=== PATIENT | female | born 1935 | race Caucasian/White ===

== ENCOUNTER 2018-02-11 13:13 | Emergency (ER) | payer MEDICARE, OTHER ==
[~2018-02-11] VITALS: Ht 152.4 cm; Wt 60.8 kg
[~2018-02-11 13:13] MED LIST: ACETAMINOPHEN325 M1 PO; ADULT LOW DOSE81 MG PO; ALDACTONE25 MG PO; ALLOPURINOL 30300 M2 PO; AMBEREN PO; ASPIRIN81 M2 PO; ATROVENT15 ML NS; BENICAR20 MG PO; BENICAR40 MG PO; CALCIUM; CARVEDILOL25 MG PO; COMBIVENT IN; COREG; COREG PO; COUMADIN 1MG TAB1 M1 PO; COUMADIN 2 MG TA2 M1 PO; COUMADIN 2.5MG2.5 M1 PO; COUMADIN 4 MG TA4 M1 PO; CYMBALTA30 MG PO; CYMBALTA60 MG; CYMBALTA60 MG PO; DARVOCET-N 1001 EACH PO; FERROUS GLUCON324 M1 PO; FOLIC ACID1 MG PO; IMDUR 60 MG TAB60 M1 PO; KEFLEX500 MG PO; LASIX 20 MG TAB20 MG PO; LEVAQUIN 500 M500 M2 PO; LIDODERM TD; METHOTREXATE 22.5 M1 PO; METHOTREXATE 22.5 MG PO; METHOTREXATE PO; MUCINEX600 MG PO; NAPROSYN375 MG PO; NASONEX17 GM NASAL; NEXIUM40 MG PO; NIACOR500 MG PO; NITROGLYCERIN0.4 MG SL; NITROGLYCERIN0.4 MG SUBLING; NITROSTAT0.4 MG SL; NORVASC 5 MG TAB5 MG; NORVASC 5 MG TAB5 MG PO; PREDNISONE 10 M10 MG PO; PREVACID 30MG C30 M1 PO; PRISTIQ50 MG PO; PROVENTIL HFA6.7 G1 INH; RECLAST 55 MG/100 M IV; REMICADE 1100 MG/VIA IV; RESTORIL15 MG PO; SIMVASTATIN80 MG PO; SYMBICORT160 MCG/4. INH; TEMAZEPAM PO; TREXALL15 MG PO; ULTRAM 50MG TAB50 MG PO; ZOCOR80 MG PO
[2018-02-11] MEDS ORDERED: ALLOPURINOL 10100 M1 PO (13:26)
[2018-02-11 14:02] LABS: ABSOLUTE EOSINOPHILS 0.4 thou/uL (0.0-0.7); ABSOLUTE LYMPHOCYTES 1.1 thou/uL (0.8-5.3); ABSOLUTE MONOCYTES 0.7 thou/uL (0.0-1.2); ABSOLUTE NEUTROPHILS 3.3 thou/uL (1.6-8.1); BASOPHILS 0.6 %; EOSINOPHILS 7.2 %; HEMATOCRIT 28.8 % (37.0-47.0); HEMOGLOBIN 9.2 gm/dL (12.0-15.0); LYMPHOCYTES 19.7 %; MCH 25.1 pg (26.0-34.0); MCV 78.4 fL (80.0-100.0); MONOCYTES 12.2 %; MPV 8.8 fl. (7.2-11.1); NUCLEATED RBCS 0 /100WBC; PLATELET COUNT* 255 thou/uL (150-400); POLYS 60.3 %; RBC 3.67 mil/uL (4.20-5.00); RDW-CV 19.1 % (10.5-14.5); WBC 5.5 thou/uL (4.0-11.0)
[2018-02-11 14:06] LABS: ANION GAP 7 mmol/L (7-16); BUN 24 mg/dL (7-18); CALCIUM 8.2 mg/dL (8.5-10.1); CHLORIDE 100 mmol/L (98-107); CO2 28 mmol/L (21-32); CREATININE 1.3 mg/dL (0.6-1.3); GLUCOSE 111 mg/dL (70-99); POTASSIUM 4.6 mmol/L (3.5-5.1); SODIUM 135 mmol/L (136-145)
[2018-02-11 14:13] LABS: ALBUMIN 2.6 g/dL (3.4-5.0); ALKALINE PHOSPHATASE 61 U/L (46-116); SGOT 26 U/L (15-37); SGPT 24 U/L (30-65); TOTAL BILIRUBIN 0.4 mg/dL (<0.1-1.0); TOTAL PROTEIN 6.8 g/dL (6.4-8.2); TROPONIN-I LEVEL <0.06 ng/mL (<0.06)
[2018-02-11] MEDS ORDERED: MEDROLDOSEPACK PO (14:55)
[2018-02-11] MEDS ORDERED: HYDROCODONE-AP1 EAC6 PO (14:55)
[2018-02-11 15:01] VITALS: BP 122/61
[2018-02-11 15:12] LABS: ESR (SEDRATE) 62 mm/hr (0-30)
--- NOTE | 2018-02-12 16:30 | EKG ---
[place] [address] ELECTROCARDIOGRAM REPORT Name: VA ARTIS Room: [facility]#: [id number] Admission: 02/11/18 Attend Phys: Discharge: 02/11/18 Date of : 35 Report #: [id number] THIS REPORT FOR: //name// [facility] ED Test Date: 2018-02-11 Test Time: 14:03:34 Pat Name: VA ARTIS Department: Room: Gender: F Nut Orchardist: Christopher DOTSON : 1935 Requested By: Jane Stewart Order Number: [id number] MD: Damian Grajeda Measurements Intervals [place] Rate: 91 P: 21 OK: 175 QRS: 0 QRSD: 140 T: -14 QT: 378 QTc: 466 Interpretive Statements Sinus tachycardia Multiple premature complexes, vent & supraven Right bundle branch block Electronically Signed On 02-12-2018 16:30:14 CDT by Damian Grajeda [email or web address] <ELECTRONICALLY SIGNED> By: Damian Grajeda MD, [facility] 02/12/18 1630 D: [id number] 02 Damian Grajeda MD, FACC /EPI
[2018-05-12] MEDS ORDERED: HYDROCODONE-AP1 EAC6 PO (09:09)
[2018-06-18] MEDS ORDERED: COZAAR 25 MG TA25 M1 PO (08:32)
[2018-06-18] MEDS ORDERED: FOLIC ACID1 MG PO (08:33)
[2018-06-18] MEDS ORDERED: MEDROLDOSEPACK PO (09:49)
[2018-06-30] MEDS ORDERED: MEDROLDOSEPACK PO (08:37)
== END 2018-02-11 15:02 | disposition home or self-care (01) ==
LOC: M.ERS 13:13
PROVIDERS: Physician Assistant
DX: M25.511 Pain in right shoulder (principal); I11.0 Hypertensive heart disease with heart failure; I50.9 Heart failure, unspecified; M19.90 Unspecified osteoarthritis, unspecified site; F17.210 Nicotine dependence, cigarettes, uncomplicated; Z96.642 Presence of left artificial hip joint; Z86.711 Personal history of pulmonary embolism

== ENCOUNTER → 2018-06-18 | Outpatient (CLI) | payer MEDICARE, OTHER ==
[~2018-06-18] MED LIST changes: +ALLOPURINOL 10100 M1 PO; +COZAAR 25 MG TA25 M1 PO; +HYDROCODONE-AP1 EAC6 PO; +MEDROLDOSEPACK PO
--- NOTE | 2018-06-26 17:38 | PAINCON ---
[address] [address] PAIN MANAGEMENT CONSULTATION Name: VA ARTIS [id number] Admission: 06/18/18 Attend Phys: Avtar Lux MD Discharge: Date of : 35 Report #: [id number] THIS REPORT FOR: //name// CC: Gabrielle Lux DATE OF SERVICE: 06/18/2018 CHIEF COMPLAINT: Dull ache in the shoulder on the right side. HISTORY OF PRESENT ILLNESS: The patient is an 83-year-old female who has been plagued with cervical radiculopathy in the past. She returns to the pain clinic. This is my first visit with the patient. She is experiencing pain which has been quite problematic since March of this year. She describes it as a dull ache that sometimes sharp and throbbing. It is worse with certain movements, particularly when she is reaching. She has tried Icy Hot and massage. Describes it as steady, shooting, aching, throbbing and gnawing. Rates it as a 10/10 and its worse. Denies any new trauma. Has had cervical radiculopathy and underwent a cervical epidural steroid injections in 2011. She felt that those were beneficial. She got 80%-90% benefit from those. At this juncture, she is having pain, which is quite problematic. She is still on a blood thinning medication Coumadin. She would like to proceed with a cervical epidural steroid injection because of the benefit she received in the past. She states that her shoulder pain radiates from her neck down her arm into the forearm with numbness and tingling down in her fingers. She has taken tramadol. She would like to proceed with a cervical epidural steroid injection after her blood values normalized. ALLERGIES: No known drug allergies. MEDICATIONS: Allopurinol 150 mg daily, Coreg 12.5 mg b.i.d., Cymbalta 30 mg, Nexium 40 mg, folic acid 1 mg, Lasix 20 mg, Remicade 100 mg intravenous every 8 weeks, Imdur 60 mg, 30 mg half tablet daily, Cozaar 25 mg, nitroglycerin 0.4 mg sublingual, simvastatin 80 mg, spironolactone 25 mg and warfarin 20 mg. 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 PAST SURGICAL HISTORY: Cardiac bypass graft in 2009, back surgery x 2, left hip replacement and hernia repair. Left inguinal herniorrhaphy repair, status post 2 lumbar surgeries. SOCIAL HISTORY: [place] [address] PAIN MANAGEMENT CONSULTATION Name: VA ARTIS Room: [facility]#: [id number] Admission: 06/18/18 Attend Phys: Avtar Lux MD Discharge: Date of : 35 Report #: [id number] REVIEW OF SYSTEMS: Decreased appetite, fever, night sweats, fatigue, weakness, wears glasses, hearing loss, ringing in the ears, swelling in feet and ankle, awakens at night to urinate, weakness of muscles and joints, muscle pain, back pain, difficulty walking, lightheadedness, memory loss, confusion, insomnia, anemia. LABORATORY DATA: No new laboratory values are available old information in the computer indicates cervical spine MRI 06/03/2011, shows moderate degenerative disk and facet joint disease at C3-C4 with mild spinal stenosis and cord flattening. There is moderate left and mild right neural foraminal stenosis. At the C4-5, there is moderate degenerative disk and mild degenerative facet disease with moderate central spinal stenosis and cord flattening. There is severe bilateral foraminal stenosis. At C5-C6, there is moderate degenerative disk and mild degenerative facet joint disease with mild spinal stenosis and cord flattening and moderate bilateral foraminal stenosis. At C5-C6, there is moderate degenerative disk and mild degenerative facet joint disease with mild spinal stenosis and cord flattening with moderate bilateral foraminal stenosis. At C7-T1, there is severe degenerative disk and mild degenerative facet disease with mild spinal stenosis and cord flattening and bilateral foraminal stenosis. PAIN CLINIC ASSESSMENT: 1. 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 2. Height 5 feet 0 inches, weight 130 pounds and BMI is 25. 3. Vital Signs: Blood pressure 134/70, heart rate 98, respiratory rate 16, room air saturation 94%, temperature 97.8. 4. Pain intensity 3-4/10. 5. Fall risk. The patient has not fallen in the last 3 months. 6. Blood thinner. The patient was on Coumadin. She will stop the Coumadin and return to the pain clinic at which time she will then undergo a cervical epidural steroid injection. 7. History of hypertension. The patient is being treated for hypertension. 8. Opioid therapy greater than 6 weeks. The patient is not on an opioid medication. 9. Risk assessment tool. 10. Functional assessment tool. 11. Recreational drug use. The patient denies use of recreational drugs. 12. Tobacco: The patient denies use of tobacco. 13. Alcohol: The patient denies frequent use of alcoholic beverages. PHYSICAL EXAMINATION: GENERAL: The patient is a well-developed, well-nourished 82-year-old female. Appears her stated age. She is alert and oriented. Speech is fluent. HEENT: Normocephalic, atraumatic. Extraocular muscles intact. Sclerae nonicteric. Mucous membranes are moist. The patient has some decreased range of motion in her neck secondary to a general arthritic changes[place] [address] PAIN MANAGEMENT CONSULTATION Name: VA ARTIS Room: [facility]#: [id number] Admission: 06/18/18 Attend Phys: Avtar Lux MD Discharge: Date of : 35 Report #: [id number] discomfort. This radiating down the right arm into the forearm and down into the hand with numbness and tingling. HEART: Regular. LUNGS: Clear to auscultation. ABDOMEN: Nontender. Lower extremity muscle strength is judged to be 4+/5 for the major muscle groups in lower extremity. Upper extremity muscle strength is difficult to gauge 4+ in the upper extremity. The patient has difficulty with the concept of during the examination of resisting deep tendon reflex in the forearms or +1 bilaterally. IMPRESSION: 1. Cervical radiculopathy. 2. Hypertension. 3. Congestive heart failure. 4. Pulmonary embolus, O2 at home at night. 5. Arthritis. 6. Two coronary stents after myocardial infarct. 7. Rheumatoid arthritis. 8. Gastroesophageal reflux. 9. Cervical radiculopathy. RECOMMENDATIONS: We discussed treatment options with the patient. Risks and benefits of a cervical epidural steroid injection were discussed. The patient will return to the pain clinic at which time we would then again reevaluate the patient and discussed the possible complications of a cervical epidural steroid injection. We would like to thank you for letting us participate in her care. We hope she continues to improve. <ELECTRONICALLY SIGNED> By: Avtar Lux MD 06/26/18 1738 [id number]. Grover Lux MD /nt
== END ==
LOC: M.PC 05-12 04:45
DX: M19.011 Primary osteoarthritis, right shoulder (principal); M54.12 Radiculopathy, cervical region; I11.0 Hypertensive heart disease with heart failure; I50.9 Heart failure, unspecified; I26.99 Other pulmonary embolism without acute cor pulmonale; K21.9 Gastro-esophageal reflux disease without esophagitis

== ENCOUNTER → 2018-06-30 | Outpatient (CLI) | payer MEDICARE, OTHER ==
--- NOTE | 2018-08-03 10:00 | PAINCON ---
[address] [address] PAIN MANAGEMENT CONSULTATION Name: ARTISVA Y [id number] Admission: 06/30/18 Attend Phys: Avtar Lux MD Discharge: Date of : 35 Report #: [id number] THIS REPORT FOR: //name// CC: Gabrielle Florez DATE OF SERVICE: 06/30/2018 FOLLOWUP COMPLAINT: Right shoulder pain. The Medrol Dosepak helped, but the pain is coming back. FOLLOWUP HISTORY: The patient is an 83-year-old female, who has been plagued with cervical radiculopathy. She has a history of pain, which has been problematic since 03/2018. She notes that the pain is particularly problematic when she is reaching and doing activities of daily living. She has tried massage and used Icy Hot. She continues to have a steady, shooting, aching, throbbing, and gnawing discomfort. She has had cervical radiculopathy and has undergone epidural steroid injections in the past, last one was in about 2011. She received about 80%-90% benefit from that. She has returned today. She would like to undergo a cervical epidural steroid injection. She was given a Medrol Dosepak at the last visit, it was helpful, but still felt that her pain is still problematic. MEDICATIONS: Allopurinol 150 mg daily, Coreg 12.5 mg b.i.d., Cymbalta 30 mg, Nexium 40 mg, folic acid 1 mg, Lasix 20 mg, Remicade 100 mg intramuscular q.8 weeks, Imdur 60 mg, 30 mg half tablet daily; Coreg 25 mg, nitroglycerin 0.4 mg sublingual, simvastatin 80 mg, spironolactone 25 mg, and warfarin 40 mg. ALLERGIES: No known drug allergies. PAIN CLINIC ASSESSMENT: 1. This patient does have a history of rheumatoid arthritis and has been seen by a bookbinder apprentice. She also has osteoarthritic changes in her neck. 2. Pain intensity is 3/10. 3. Fall risk. The patient has not fallen in the last 3 months. 4. Blood thinner. The patient was on Coumadin. She has stopped her medication in anticipation for undergoing a cervical epidural steroid injection. 5. Hypertension. The patient is being treated for hypertension. 6. Opioid therapy greater than 6 weeks. The patient has not been on an opioid therapy. 7. Risk assessment tool. 8. Functional assessment tool. 9. Recreational drug use. The patient denies use of recreational drugs. 10. Tobacco: The patient denies use of tobacco. 11. Alcohol: The patient denies [place] [address] PAIN MANAGEMENT CONSULTATION Name: VA ARTIS Treva Room: [facility]#: [id number] Admission: 06/30/18 Attend Phys: Avtar Lux MD Discharge: Date of : 35 Report #: [id number] PHYSICAL EXAMINATION: GENERAL: The patient is a well-developed, well-nourished white female. She appears her stated age. She is alert and oriented x 3. Speech is fluent. Height is 5 feet 0 inches, weight is 130 pounds, and BMI is 25. VITAL SIGNS: Blood pressure is 125/67, heart rate is 88, respiratory rate is 16, room air saturation is 94%, and temperature is 97.6. HEENT: Normocephalic, atraumatic. Extraocular eye muscles intact. Sclerae nonicteric. Mucous membranes are moist. NECK: With some decreased range of motion in the neck secondary to generalized arthritic changes. The patient has pain and discomfort that is radiating down into the right arm and into the forearm down into her hand with numbness and tingling in her fingers. HEART: Regular rate. LUNGS: Clear to auscultation. ABDOMEN: Nontender. EXTREMITIES: Lower extremity muscle strength is judged to be 4+/5 for the major muscle groups in the lower extremity. Upper extremity muscle strength is judged to be 4+ in the upper extremities. The patient has some difficulty with concept of being tested and inability to participate. Deep tendon reflexes are +1 in her biceps bilaterally. LABORATORY DATA: PT is 14.0 and INR is 1.2. IMPRESSION: 1. Hypertension. 2. Congestive heart failure history. 3. Pulmonary embolus, O2 at home at night. 4. Arthritis, rheumatoid. 5. Two coronary stents with coronary artery disease, status post myocardial infarct. 6. Gastroesophageal reflux. 7. Cervical radiculopathy. RECOMMENDATIONS: We have discussed treatment options with the patient. Risks and benefits of injection were again reviewed with the patient. Possible complication of the procedure, which could include but are not limited to infection, increased muscle soreness, headache, bleeding, worsening of pain, no improvement in pain and the patient elects to proceed. PROCEDURE NOTE: The patient was placed in the prone position. Her back was sterilely prepped with a Betadine solution. It was allowed to dry. Fluoroscopy using anterior, posterior as well as lateral viewing were used to conduct procedure. At C7/T1, a 0.25% bupivacaine was infiltrated Using a midline approach with direction toward the right paraspinous area, a 17-gauge Tuohy needle was used. A total of 120 mg triamcinolone [place] [address] PAIN MANAGEMENT CONSULTATION Name: VA ARTIS Room: [facility]#: [id number] Admission: 06/30/18 Attend Phys: Avtar Lux MD Discharge: Date of : 35 Report #: [id number] CSF, heme, or paresthesia. The patient tolerated the procedure well. There were no complications. She remained in the pain clinic for an appropriate amount of time. We would like to thank you for letting us to participate in her care. We hope she continues to improve. She will follow up in the future as needed. A total of 28 seconds fluoroscopy time was used. <ELECTRONICALLY SIGNED> By: Avtar Lux MD 08/03/18 1000 [id number]. Grover Lux MD /[facility]
== END | disposition home or self-care (01) ==
LOC: M.PC 04:50
DX: M54.12 Radiculopathy, cervical region (principal); G89.29 Other chronic pain; I10 Essential (primary) hypertension; I25.2 Old myocardial infarction; M06.9 Rheumatoid arthritis, unspecified; I25.10 Atherosclerotic heart disease of native coronary artery without angina pectoris; K21.9 Gastro-esophageal reflux disease without esophagitis; Z79.899 Other long term (current) drug therapy; Z86.711 Personal history of pulmonary embolism; Z79.01 Long term (current) use of anticoagulants

== ENCOUNTER 2018-12-31 18:49 | Inpatient (IN) | payer MEDICARE, OTHER ==
[~2018-12-31] VITALS: Ht 152.4 cm; Wt 68.9 kg
[2018-12-31 19:13] VITALS: BP 95/57
[2018-12-31 19:56] LABS: ABSOLUTE BASOPHILS 0.1 thou/uL (0.0-0.2); ABSOLUTE EOSINOPHILS 0.2 thou/uL (0.0-0.7); ABSOLUTE MONOCYTES 0.9 thou/uL (0.0-1.2); ABSOLUTE NEUTROPHILS 15.2 thou/uL (1.6-8.1); BASOPHILS 0.7 %; HEMATOCRIT 31.6 % (37.0-47.0); HEMOGLOBIN 9.9 gm/dL (12.0-15.0); LYMPHOCYTES 10.9 %; MCH 24.8 pg (26.0-34.0); MCHC 31.2 g/dL (28.0-37.0); MCV 79.5 fL (80.0-100.0); MONOCYTES 5.1 %; MPV 9.5 fl. (7.2-11.1); NUCLEATED RBCS 0 /100WBC; PLATELET COUNT* 302 thou/uL (150-400); POLYS 82.3 %; RBC 3.98 mil/uL (4.20-5.00); RDW-CV 21.4 % (10.5-14.5); WBC 18.4 thou/uL (4.0-11.0)
[2018-12-31 20:03] LABS: PROTIME 86.9 Seconds (9.20-11.50)
[2018-12-31 20:05] LABS: INR 8.6
[2018-12-31 20:09] LABS: ANION GAP 11 mmol/L (7-16); BUN 33 mg/dL (7-18); CALCIUM 8.1 mg/dL (8.5-10.1); CHLORIDE 99 mmol/L (98-107); CO2 23 mmol/L (21-32); CREATININE 1.9 mg/dL (0.6-1.3); GLUCOSE 110 mg/dL (70-99); POTASSIUM 4.5 mmol/L (3.5-5.1); SODIUM 133 mmol/L (136-145); TROPONIN-I LEVEL <0.06 ng/mL (<0.06)
[2018-12-31 20:11] LABS: ALBUMIN 2.3 g/dL (3.4-5.0); ALKALINE PHOSPHATASE 65 U/L (46-116); NT-PRO BRAIN NAT PEPTIDE 14878 pg/mL (<300); SGOT 28 U/L (15-37); SGPT 37 U/L (30-65); TOTAL BILIRUBIN 0.6 mg/dL (<0.1-1.0); TOTAL PROTEIN 6.3 g/dL (6.4-8.2)
[2018-12-31 20:15] LABS: PLATELET ESTIMATE ADEQUATE
[2018-12-31 21:34] LABS: INFLUENZA A ANTIGEN None Detected (None Detect); INFLUENZA B ANTIGEN None Detected (None Detect)
--- NOTE | 2018-12-31 22:41 | NUR ---
PATIENT WAS ASSISTED TO BEDSIDE COMMODE. AFTER RETURNING TO BED SHE STATED SHE WAS HAVING DIFFICULTY BREATHING. PHYSICIAN NOTIFIED. VITAL SIGNS WERE DOCUMENTED.
--- NOTE | 2018-12-31 22:50 | NUR ---
PATIENT MOVED TO ROOM 2 FOR PROCEDURE. MEDICATION TITRATED ORDERED BY PHYSICIAN.
[2019-01-01] VITALS (50 sets, daily range): BP systolic 81–237; BP diastolic 45–86
[2019-01-01] LABS: URINE BILIRUBIN NEGATIVE (Negative); URINE BLOOD TRACE (Negative); URINE CLARITY CLEAR; URINE COLOR YELLOW; URINE GLUCOSE-RANDOM NEGATIVE (Negative); URINE KETONES NEGATIVE (Negative); URINE LEUKOCYTES-REFLEX NEGATIVE (Negative); URINE NITRITE-REFLEX NEGATIVE (Negative); URINE PROTEIN TRACE (Negative); URINE SPECIFIC GRAVITY 1.025 (1.005-1.030); URINE UROBILINOGEN 0.2 E.U./dl (0.2-1.0)
[2019-01-01] MEDS ORDERED: RESTORIL15 M1 PO (01:29)
[2019-01-01 04:53] LABS: HEMATOCRIT 26.7 % (37.0-47.0); HEMOGLOBIN 8.6 gm/dL (12.0-15.0); MCH 25.5 pg (26.0-34.0); MCHC 32.1 g/dL (28.0-37.0); MCV 79.4 fL (80.0-100.0); RBC 3.37 mil/uL (4.20-5.00); RDW-CV 21.2 % (10.5-14.5); WBC 14.3 thou/uL (4.0-11.0)
[2019-01-01 05:04] LABS: CALCIUM 7.1 mg/dL (8.5-10.1); CREATININE 1.6 mg/dL (0.6-1.3); MAGNESIUM 1.9 mg/dL (1.8-2.4); POTASSIUM 4.1 mmol/L (3.5-5.1)
--- NOTE | 2019-01-01 06:24 | NUR ---
ADMITTED TO ICU BED 5 AT 0045, SEE ASSESSMENTS. O2 SAT REMAINS >92% ON 2L O2 PER NC. LEVOPHED GTT TITRATED DOWN, MAINTAINING MAP >65. DOBUTAMINE GTT INFUSING ORDERED, LAST TO TITRATE PER ORDER. PT HAS DENIED PAIN, SOA, AND OTHER DISCOMFORT. RT HAND SWOLLEN AND RED AT FIRST KNUCKLES, XRAY SHOWS ARTHRITIS. TOLERATING CLEAR LIQUID DIET WITHOUT C/O NAUSEA. PT TURNS SELF IN BED ADEQUATELY TO RELIEVE PRESSURE. CALL LIGHT WITHIN REACH.
--- NOTE | 2019-01-01 09:48 | NUR ---
5376 ASSUMED CARE OF PATIENT. PLEASE SEE DOCUMENTED ASSESSMENT. PT IN MULTIFOCAL ATRIAL TACHYCARDIA
[2019-01-01 09:55] LABS: INR 5.7
--- NOTE | 2019-01-01 10:44 | EKG ---
[place] [address] ELECTROCARDIOGRAM REPORT Name: VA ARTIS Room: [address] ADM IN .R.#: [id number] Admission: 12/31/18 Attend Phys: William Pool MD Discharge: Date of : 35 Report #: [id number] THIS REPORT FOR: //name// [facility] ED Test Date: 2018-12-31 Test Time: 19:46:38 Pat Name: VA ARTIS Department: Room: [facility] Gender: F Patient Coordinator Front Desk: AP : 1935 Requested By: Coretta Crocker Order Number: [id number] : Scout Zavala Measurements Intervals [place] Rate: 133 P: 35 ME: 106 QRS: 26 QRSD: 138 T: -8 QT: 355 QTc: 529 Interpretive Statements multifocal atrial tachycardia Right bundle branch block Compared to ECG 02/11/2018 14:03:34 rate increased Electronically Signed On 01-01-2019 10:44:23 CDT by Scout Zavala [email or web address] <ELECTRONICALLY SIGNED> By: Scout Zavala MD, FAC 01/01/19 1044 194 45 Scout Zavala MD, [facility] /EPI
--- NOTE | 2019-01-01 10:50 | EKG ---
[place] [address] ELECTROCARDIOGRAM REPORT Name: VA ARTIS Room: [address] ADM IN .R.#: [id number] Admission: 12/31/18 Attend Phys: William Pool MD Discharge: Date of : 35 Report #: [id number] THIS REPORT FOR: //name// [facility] Test Date: 2019-01-01 Test Time: 08:03:07 Pat Name: VA ARTIS Department: Room: [address] Gender: F Sports Internship: : 1935 Requested By: Mayo Rodriguez Order Number: [id number] Andrew MD: Scout Zavala Measurements Intervals [place] Rate: 128 P: 16 ND: 136 QRS: 43 QRSD: 141 T: -23 QT: 355 QTc: 518 Interpretive Statements multifocal atrial tachycardia ventricular premature complexes Right bundle branch block Electronically Signed On 01-01-2019 10:50:44 CDT by Scout Zavala [email or web address] <ELECTRONICALLY SIGNED> By: Scout Zavala MD, [facility] 01/01/19 1050 2 2 Scout Zavala MD, FACC /EPI
--- NOTE | 2019-01-01 10:51 | EKG ---
[place] [address] ELECTROCARDIOGRAM REPORT Name: VA ARTIS Room: [address] ADM IN M.R.#: [id number] Admission: 12/31/18 Attend Phys: William Pool MD Discharge: Date of : 35 Report #: [id number] THIS REPORT FOR: //name// [facility] ED Test Date: 2018-12-31 Test Time: 20:37:41 Pat Name: VA ARTIS Department: Room: [address] Gender: F Feeder Loader: AP : 1935 Requested By: Coretta Crocker Order Number: [id number] [place] MD: Scout Zavala Measurements Intervals [place] Rate: 83 P: 22 AR: 160 QRS: 11 QRSD: 141 T: -8 QT: 387 QTc: 455 Interpretive Statements Sinus rhythm with pac's Ventricular bigeminy Right bundle branch block Compared to ECG 12/31/2018 19:46:38 Ventricular premature complex(es) now present Ectopic atrial tachycardia, multifocal no longer present Electronically Signed On 01-01-2019 10:51:29 CDT by Scout Zavala [email or web address] <ELECTRONICALLY SIGNED> By: Scout Zavala MD, [facility] 01/01/19 1051 36 36 Scout Zavala MD, [facility] /EPI
--- NOTE | 2019-01-01 11:43 | NUR ---
1015 DOBUTAMINE DISCONTINUED PER ORDER DR MITCHELL. ECHO IN PROGRESS. CONTINUES IN MAT RHYTHM
--- NOTE | 2019-01-01 12:28 | 2DMMODE ---
[place] [address] 2 D/M-MODE ECHOCARDIOGRAM Name: ARTISVA Room: [address] ADM IN [facility]#: [id number] Admission: 12/31/18 Attend Phys: William Pool, Discharge: Date of : 35 Date of Service: 01/01/19 1228 Report #: [id number] THIS REPORT FOR: //name// APPROVED REPORT Study performed: 01/01/2019 09:39:14 EXAM: Comprehensive 2D, Doppler, and color-flow Echocardiogram Patient Location: In-Patient Room #: [facility] Status: routine BSA: 1.66 HR: 1410 bpm BP: 139/73 mmHg Rhythm: NSR Other Information Study Quality: Good Indications Arrhythmia Dyspnea 2D Dimensions IVSd: 10.54 (7-11mm) LVOT Diam: 20.35 (18-24mm) LVDd: 59.17 mm PWd: 10.08 (7-11mm) Ascending Ao: 31.37 (22-36mm) LVDs: 44.00 (25-40mm) Aortic Root: 29.41 mm Volumes Left Atrial Volume (Systole) LA ESV Index: 69.50 mL/m2 Aortic Valve AoV Peak Damir.: 1.79 m/s AO Peak Gr.: 12.88 mmHg LVOT Max P.01 mmHg AO Mean Gr.: 8.14 mmHg LVOT Mean P.04 mmHg LVOT Max V: 1.23 m/s AO V2 VTI: 29.19 cm LVOT Mean V: 0.81 m/s DORIS (VTI): 1.97 cm2 LVOT V1 VTI: 17.65 cm AI Pinal: 2.68 m/s2 AI PHT: 438.87 [place] [address] 2 D/M-MODE ECHOCARDIOGRAM Name: VA ARTIS Room: [address] IN ..#: [id number] Admission: 12/31/18 Attend Phys: William Pool, Discharge: Date of : 35 Date of Service: 01/01/19 1228 Report #: [id number] E/A Ratio: 1.80 MV Decel. Time: 105.67 ms MV E Max Damir.: 1.32 m/s MV PHT: 30.64 ms MVA (PHT): 7.18 cm2 TDI E/Lateral E': 8.25 E/Medial E': 10.15 Medial E' Damir.: 0.13 m/s Lateral E' Damir.: 0.16 m/s Pulmonary Valve PV Peak Damir.: 0.85 m/s PV Peak Gr.: 2.87 mmHg Tricuspid Valve RAP Estimate: 5.00 mmHg TR Peak Gr.: 26.60 mmHg RVSP: 31.00 mmHg PA Pressure: 31.00 mmHg Left Ventricle The left ventricle is normal size. severe hypokinesis of inferior wall There is normal left ventricular wall thickness. Left ventricular systolic function is moderately decreased. LVEF is 35-40%. The left ventricular diastolic function is normal. Right Ventricle The right ventricle is normal size. The right ventricular systolic function is normal. Atria Left atrium is severely dilated. Right atrium is mildly dilated. Aortic Valve Mild aortic valve sclerosis. Mild aortic regurgitation. There is no aortic valvular stenosis. Mitral Valve The mitral valve is normal in structure. Moderate mitral regurgitation. No evidence of mitral valve stenosis. Tricuspid Valve The tricuspid valve is normal in structure. Mild tricuspid regurgitation. estimated pa pressure 35 [place] [address] 2 D/M-MODE ECHOCARDIOGRAM Name: VA ARTIS Room: [address] IN [facility]#: [id number] Admission: 12/31/18 Attend Phys: William Pool, Discharge: Date of : 35 Date of Service: 01/01/19 1228 Report #: [id number] The pulmonary valve is normal in structure. There is no pulmonic valvular regurgitation. Great Vessels The aortic root is normal in size. IVC is normal in size and collapses >50% with inspiration. Pericardium There is no pericardial effusion. <Conclusion> LVEF is 35-40%. Left atrium is severely dilated. Mild aortic valve sclerosis. Mild aortic regurgitation. Moderate mitral regurgitation. Mild tricuspid regurgitation. estimated pa pressure 35 mm Hg <ELECTRONICALLY SIGNED> By: Scout Zavala MD, [facility] 01/01/19 1228 1228 1228 Scout Zavala MD, FACC /INF
--- NOTE | 2019-01-01 16:12 | NUR ---
INITIAL ASSESSMENT: Pt evaluated for d/c planning needs. Reviewed chart and spoke with nurse, pt and 2 daughters at bedside. Pt is alert and oriented and very [place]. Pt lives in house with spouse and was independent with ADL's prior to admission to the hospital. Pt has walker and CPAP at home, but no longer has oxygen. Pt has been on service with [facility] in the past and wants to use them again if home health is needed. Discussed SNF. Pt has been to inpatient rehab at [facility] in the past. Will await input from PT and OT re: their recommendations for post acute services needed.
--- NOTE | 2019-01-01 17:36 | NUR ---
PATIENT PROGRESSING TOWARDS GOALS. SEEN BY CARDIOLOGY. ECHO COMPLETED. OFF DOBUTAMINE THIS MORNING AND OFF OF LEVOPHED AT 1700. DIET RESUMED. REMAINS TACHYCARDIC. PT IS SOA WITH EXERTION BUT STATES SHE IS SHORT OF AIR ALL THE TIME. MANY VISITORS. GOAL IS TO BE ABLE TO REMOVE FEMORAL CENTRAL LINE AND INCREASE ACTIVITY.
[2019-01-02 04:20] LABS: HEMATOCRIT 29.5 % (37.0-47.0); HEMOGLOBIN 9.1 gm/dL (12.0-15.0); MCH 24.5 pg (26.0-34.0); MCHC 30.9 g/dL (28.0-37.0); MCV 79.4 fL (80.0-100.0); MPV 9.8 fl. (7.2-11.1); RBC 3.71 mil/uL (4.20-5.00); RDW-CV 21.6 % (10.5-14.5); WBC 16.6 thou/uL (4.0-11.0)
[2019-01-02 04:45] LABS: PROTIME 21.4 Seconds (9.20-11.50)
[2019-01-02 04:57] LABS: ANION GAP 13 mmol/L (7-16); BUN 26 mg/dL (7-18); CALCIUM 7.2 mg/dL (8.5-10.1); CHLORIDE 97 mmol/L (98-107); CHOLESTEROL 126 mg/dL (<200); CO2 18 mmol/L (21-32); CREATININE 1.5 mg/dL (0.6-1.3); GLUCOSE 149 mg/dL (70-99); HDL CHOLESTEROL 50 mg/dL (>40); LDL CHOLESTEROL 69 mg/dL (<100); MAGNESIUM 1.6 mg/dL (1.8-2.4); POTASSIUM 4.6 mmol/L (3.5-5.1); SODIUM 128 mmol/L (136-145); TC:HDL 2.5 Ratio (Not establshd); TRIGLYCERIDE 36 mg/dL (<150); VLDL 7 mg/dL (<40)
[2019-01-02 05:32] LABS: SERUM ASSESSMENT Clear
[2019-01-02 05:33] LABS: INR 2.1
[2019-01-02 07:00] VITALS: BP 136/92
[2019-01-02 08:00] VITALS: BP 140/93
[2019-01-02 09:00] VITALS: BP 140/99
--- NOTE | 2019-01-02 10:03 | NUR ---
PT TRANSFERRING TO TELE AT THIS TIME, REPORT CALLED AND GIVEN TO FER KOVACS. WILL SIGN OFF AT THIS TIME
[2019-01-02 10:15] VITALS: BP 138/88
--- NOTE | 2019-01-02 10:15 | NUR ---
RECEIVED REPORT FROM ZOFIA IN ICU AND ASSUMED CARE OF PT @ 1015.PT IS A/O X4,VSS,TRACING ST WITH PAC/PVCs AND BBB ON THE MONITOR.IV PATENT AND SALINE LOCKED.NERI SECURE AND PATENT.THIS NURSE ASSESSED PT AND PREVIOUS NURSE CHARTING AND AGREES WITH INFORMATION.PT IS UP WITH ONE ASSIST TO CHAIR.PT LEFT RESTING IN BED WITH CALL LIGHT AND FALL PRECAUTIONS IN PLACE.FAMILY AT BEDSIDE.WILL CONTINUE TO MONITOR.
[2019-01-02 15:47] VITALS: BP 125/78
--- NOTE | 2019-01-02 17:39 | EKG ---
[place] [address] ELECTROCARDIOGRAM REPORT Name: VA ARTIS Room: [address] ADM IN .R.#: [id number] Admission: 12/31/18 Attend Phys: William Pool MD Discharge: Date of : 35 Report #: [id number] THIS REPORT FOR: //name// [facility] Test Date: 2019-01-02 Test Time: 08:29:28 Pat Name: VA ARTIS Department: Room: [facility] Gender: F Otolaryngology Surgeon: : 1935 Requested By: Scout Zavala Order Number: [id number] Andrew MD: Ian Elena Measurements Intervals [place] Rate: 120 P: 41 [place]: 139 QRS: 53 QRSD: 138 T: -5 QT: 363 QTc: 513 Interpretive Statements Sinus tachycardia Ventricular premature complexes Right bundle branch block Compared to ECG 01/01/2019 08:03:07 Ectopic atrial tachycardia, multifocal no longer present Electronically Signed On 01-02-2019 17:39:47 CDT by Ian Elena [email or web address] <ELECTRONICALLY SIGNED> By: Ian Elena MD, [facility] 01/02/19 1739 0829 0829 Ian Elena MD, [facility] /EPI
--- NOTE | 2019-01-02 18:37 | NUR ---
VSS.CARDIAC MONITORING IN PLACE WITH NO CHANGES.PT REMAINS ON 2L O2 NC.FAMILY BROUGHT IN HOME CPAP FOR PT TO USE OVERNIGHT.PT PROGRESSING TOWARDS GOALS.NO C/O PAIN.IV PATENT AND SALINE LOCKED.NERI DISCONTINUED PER PT REQUEST AND ORDERS.MAGNESIUM REPLACED.PT INFORMED OF PLAN OF CARE AND COMMUNICATES UNDERSTANDING.HOURLY ROUNDING COMPELTED FOR PT SAFETY.CALL LIGHT AND FALL PRECAUTIONS IN PLACE.WILL CONTINUE TO MONITOR FOR DURATION OF SHIFT.
[2019-01-02 20:00] VITALS: BP 113/73
[2019-01-03] VITALS: BP 111/68
[2019-01-03 04:00] VITALS: BP 127/79
[2019-01-03 05:02] LABS: ABSOLUTE LYMPHOCYTES 1.6 thou/uL (0.8-5.3); ABSOLUTE MONOCYTES 0.4 thou/uL (0.0-1.2); ABSOLUTE NEUTROPHILS 7.7 thou/uL (1.6-8.1); HEMATOCRIT 27.4 % (37.0-47.0); HEMOGLOBIN 8.8 gm/dL (12.0-15.0); LYMPHOCYTES 16.4 %; MCH 25.6 pg (26.0-34.0); MCHC 32.3 g/dL (28.0-37.0); MCV 79.2 fL (80.0-100.0); MONOCYTES 3.6 %; MPV 9.7 fl. (7.2-11.1); NUCLEATED RBCS 1 /100WBC; PLATELET COUNT* 282 thou/uL (150-400); RBC 3.46 mil/uL (4.20-5.00); RDW-CV 21.1 % (10.5-14.5); WBC 9.6 thou/uL (4.0-11.0)
[2019-01-03 05:06] LABS: INR 1.2; PROTIME 12.7 Seconds (9.20-11.50)
[2019-01-03 05:09] LABS: CALCIUM 7.1 mg/dL (8.5-10.1); CREATININE 1.3 mg/dL (0.6-1.3); MAGNESIUM 1.9 mg/dL (1.8-2.4); POTASSIUM 4.7 mmol/L (3.5-5.1)
[2019-01-03 07:25] LABS: ANISOCYTOSIS 1+; PLATELET ESTIMATE ADEQUATE
[2019-01-03 08:15] VITALS: BP 114/75
[2019-01-03] MEDS ORDERED: PREDNISONE 10 M10 MG PO (09:35)
--- NOTE | 2019-01-03 11:03 | NUR ---
RECEIVED REPORT FROM VENU AND ASSUMED CARE OF PT @ 4325.PT IS A/OX4,VSS TRACING ST WITH BBB AND PAC/PVC ON THE MONITOR.PT REMAINS ON 2L O2 NC.IV PATENT AND SALINE LOCKED.PT IS CALM AND COOPERATIVE WITH NO C/O PAIN.PT LEFT RESTING IN BED WITH CALL LIGHT AND FALL PRECAUTIONS IN PLACE.WILL CONTINUE TO MONITOR.
[2019-01-03 11:18] VITALS: BP 114/75
--- NOTE | 2019-01-03 12:15 | NUR ---
PT OK FOR DISCHARGE.REST AND EXERCISE COMPLETED AND PT DOES NOT QUALIFY FOR O2 FOR HOME.DISCHARGE PAPERWORK COMPLETED AND GIVEN TO THE PT.SCRIPT CALLED INTO [facility].PRESCRIPTION EDUCATION GIVEN TO PT.HOME HEALTH INFORMATION FAXED TO [facility] BY NURSE.CARDIOLOGY FOLLOW UP APPOINTMENT INFORMATION FAXED TO CARDIOLOGY OFFICE BY NURSE.DAUGHTER OF PT CALLED WITH CONCERNS ABOUT PT NOT HAVING O2 AT HOME.NURSE ATTEMPTED TO EDUCATE PT AND FAMILY. DR. VILLATORO WAS NOTIFIED OF DAUGHTERS CONCERN.DOCTOR TALKED TO FAMILY OVER THE PHONE AND FAMILY WAS OK WITH HIS EXPLAINATION AND FURTHER DIRECTION OF CARE.
--- NOTE | 2019-01-04 12:40 | CON ---
[address] [address] CONSULTATION Name: VA ARTIS Room: [address] IN M.R.#: [id number] Admission: 12/31/18 Attend Phys: William Pool MD Discharge: 01/03/19 Date of : 35 Report #: [id number] THIS REPORT FOR: //name// CC: William Burger DATE OF SERVICE: 01/01/2019 HISTORY OF PRESENT ILLNESS: The patient is an 83-year-old white female who I was asked to see in the hospital today after she was noted to be in atrial fibrillation. The patient has an extensive past medical history. The patient had a history of coronary artery stenting, but eventually underwent 5-vessel bypass surgery at [facility] in 2007. Recently, she had been followed by Dr. Peralta who retired. She apparently has a history of AFib, although she has never been cardioverted. The patient has been chronically anticoagulated. I actually saw the patient in the Cardiology Clinic in September when she was doing well. She is not very active and uses a cane. She continues to smoke. She has a history of rheumatoid arthritis and is followed by Dr. Kent. She has been on methotrexate. The patient states she has not felt well over the past several weeks. She is chronically short of breath. Yesterday, she noticed some swelling of her hand. She came to the Emergency Room last night. She was noted to have an elevated INR. She was also hypotensive. She was placed on Levophed and dopamine. A central line was placed from the right femoral vein. Because of atrial fibrillation I was asked to see her for further evaluation and treatment. She has only occasional chest pain. She denied any bleeding. She denied any irregular heartbeat or lightheadedness. PAST MEDICAL HISTORY: She has had hip surgery, hernia repair, 2 back surgeries. She has a history of hypertension. She has a history of sleep apnea and uses CPAP. She has a history of rheumatoid arthritis. She is very hard of hearing. She has a history of recurrent pulmonary embolus. MEDICATIONS: On admission include allopurinol, carvedilol, Cymbalta, Nexium, Lasix, Remicade, Imdur, losartan, methotrexate, simvastatin, spironolactone, warfarin. ALLERGIES: She has previous intolerance to LISINOPRIL and NIACIN. FAMILY HISTORY: Positive for high blood pressure. SOCIAL HISTORY: She is . She and her live in [place]. She smokes a pack of cigarettes a day, 3 drinks of alcohol a week. REVIEW OF SYSTEMS: She has had no history of stroke. She denies asthma. No history of peptic ulcer disease, liver disease, kidney disease, cancer, [place] [address] CONSULTATION Name: VA ARTIS Room: [address]#: [id number] Admission: 12/31/18 Attend Phys: William Pool MD Discharge: 01/03/19 Date of : 35 Report #: [id number] psychiatric illness, chronic skin condition. PHYSICAL EXAMINATION: GENERAL: Revealed an elderly, frail-appearing white female who was lying in bed. She appeared in no acute distress. VITAL SIGNS: She had a blood pressure initially when she came in last night of only 90 with pulse of 100. Currently, blood pressure is 105, pulse is 90. She was afebrile. HEENT: She is anicteric. Conjunctivae are pink. Mucous members appear moist. NECK: Veins do not appear distended. CHEST: Clear to auscultation. CARDIAC: Irregular rhythm. ABDOMEN: Soft. EXTREMITIES: Had no edema. Dorsalis pedis pulse 1+ bilaterally. SKIN: Cool and dry. NEUROLOGIC: Nonfocal. LABORATORY DATA: Her ECG when she came in last night showed what appeared to be a sinus tachycardia, frequent PACs with a right bundle-branch block. On the monitor, the patient continues to have frequent PACs, occasional PVC. Her workup in the Emergency Room, she had a portable chest x-ray that showed cardiomegaly, perihilar infiltrates, left pleural effusion, hyperinflated lung rogers. She had CT scan of the abdomen and pelvis, which showed evidence of diverticulosis, gallstones, cardiomegaly, trace effusions. CT scan of the chest without contrast showed cardiomegaly, some atelectasis, small nodule, small hiatal hernia. Her lab work, sodium 135, BUN 28, creatinine 1.6, glucose 146, albumin 2.3. Troponin 0.06. BNP 14,878. Her INR on admission was 8.6. White blood cell count 14.3, hemoglobin 8.6. IMPRESSION AND RECOMMENDATIONS: 1. Frequent premature atrial contractions. This does not appear to be atrial fibrillation at this time. 2. Over anticoagulation. I would hold warfarin at this time and give the patient vitamin K. 3. Anemia. No obvious bleeding at this time. Of note is that the patient has had hemoglobin of 8.2 back in 2009. 4. Coronary artery disease. Previous bypass surgery. The patient has stable angina. 5. Hypertension. The patient on pressors at this time. No evidence of obvious bleeding or gastrointestinal loss at this time. 6. History of hypertension. The patient has been on a beta ginna and ARB. I would hold at this time. 7. Hyperlipidemia. The patient is on a statin drug. 8. History of rheumatoid arthritis. The patient has been on methotrexate. 9. History of deep venous thrombosis. The patient [place] [address] CONSULTATION Name: VA ARTIS Room: [address]#: [id number] Admission: 12/31/18 Attend Phys: William Pool MD Discharge: 01/03/19 Date of : 35 Report #: [id number] 10. Sleep apnea. The patient uses CPAP. 11. Tobacco abuse. 12. Hard of hearing. <ELECTRONICALLY SIGNED> By: Scout Zavala MD, FACC 01/04/19 1240 0935 [id number] Zavala MD, FACC /nt
[2019-01-05 17:04] VITALS: BP 114/75
[2019-01-05 17:08] VITALS: BP 114/75
== END 2019-01-03 12:30 | disposition home health service (06) | DRG 545 ==
LOC: M.ERS 18:49 → M.TBA-ER 21:28 → M.2W 22:07 → M.ICU 23:52 → M.TBA-ER 23:52 → M.ICU 01-01 00:09 → M.2W 01-02 10:27
PROVIDERS: Emergency Medicine; Internal Medicine; ADMIT Internal Medicine
PROC: 06HY33Z Insertion of Infusion Device into Lower Vein, Percutaneous Approach (ICD-10-PCS; principal; 2018-12-31)
PROC: B54BZZA Ultrasonography of Right Lower Extremity Veins, Guidance (ICD-10-PCS; principal; 2018-12-31)
DX: M06.811 Other specified rheumatoid arthritis, right shoulder (principal); R57.0 Cardiogenic shock; N17.0 Acute kidney failure with tubular necrosis; J18.9 Pneumonia, unspecified organism; J96.01 Acute respiratory failure with hypoxia; I50.43 Acute on chronic combined systolic (congestive) and diastolic (congestive) heart failure; E87.1 Hypo-osmolality and hyponatremia; J44.0 Chronic obstructive pulmonary disease with (acute) lower respiratory infection; I47.1 Supraventricular tachycardia; I42.8 Other cardiomyopathies; I11.0 Hypertensive heart disease with heart failure; I48.91 Unspecified atrial fibrillation; I25.10 Atherosclerotic heart disease of native coronary artery without angina pectoris; D64.9 Anemia, unspecified; E78.5 Hyperlipidemia, unspecified; G47.30 Sleep apnea, unspecified; H91.90 Unspecified hearing loss, unspecified ear; I49.1 Atrial premature depolarization; I73.9 Peripheral vascular disease, unspecified; Z96.642 Presence of left artificial hip joint; F17.210 Nicotine dependence, cigarettes, uncomplicated; I34.0 Nonrheumatic mitral (valve) insufficiency; Z86.718 Personal history of other venous thrombosis and embolism; Z79.01 Long term (current) use of anticoagulants; Z86.711 Personal history of pulmonary embolism; Z95.1 Presence of aortocoronary bypass graft; Z79.899 Other long term (current) drug therapy; Z71.6 Tobacco abuse counseling; Z99.81 Dependence on supplemental oxygen

== ENCOUNTER → 2019-01-08 | Outpatient (CLI) | payer MEDICARE, OTHER ==
[~2019-01-08] MED LIST changes: +RESTORIL15 M1 PO
[2019-01-08 15:33] LABS: PROTIME 20.3 Seconds (9.20-11.50)
[2019-01-08 15:36] LABS: CALCIUM 9.8 mg/dL (8.5-10.1); CREATININE 1.3 mg/dL (0.6-1.3); POTASSIUM 4.8 mmol/L (3.5-5.1)
== END ==
LOC: M.LAB 14:52
PROVIDERS: Nurse Practitioner
DX: E87.1 Hypo-osmolality and hyponatremia (principal); Z79.01 Long term (current) use of anticoagulants

== ENCOUNTER 2019-01-19 12:18 | Emergency (ER) | payer MEDICARE, OTHER ==
[~2019-01-19] VITALS: Ht 152.4 cm; Wt 59.0 kg
[2019-01-19] MEDS ORDERED: COUMADIN 3 MG TA3 M1 PO (12:40)
[2019-01-19 12:44] LABS: ABSOLUTE BASOPHILS 0.1 thou/uL (0.0-0.2); ABSOLUTE EOSINOPHILS 0.2 thou/uL (0.0-0.7); ABSOLUTE LYMPHOCYTES 2.4 thou/uL (0.8-5.3); ABSOLUTE MONOCYTES 0.7 thou/uL (0.0-1.2); ABSOLUTE NEUTROPHILS 3.6 thou/uL (1.6-8.1); BASOPHILS 1.1 %; EOSINOPHILS 3.2 %; HEMATOCRIT 32.8 % (37.0-47.0); HEMOGLOBIN 10.6 gm/dL (12.0-15.0); LYMPHOCYTES 34.2 %; MCH 25.5 pg (26.0-34.0); MCHC 32.3 g/dL (28.0-37.0); MONOCYTES 9.9 %; MPV 9.7 fl. (7.2-11.1); NUCLEATED RBCS 0 /100WBC; PLATELET COUNT* 218 thou/uL (150-400); POLYS 51.6 %; RBC 4.15 mil/uL (4.20-5.00); RDW-CV 20.9 % (10.5-14.5)
[2019-01-19 12:55] LABS: INR 1.8
[2019-01-19 12:59] LABS: ANISOCYTOSIS 2+; OVALOCYTES 1+
[2019-01-19 13:03] LABS: ANION GAP 9 mmol/L (7-16); BUN 27 mg/dL (7-18); CALCIUM 9.2 mg/dL (8.5-10.1); CHLORIDE 102 mmol/L (98-107); CO2 26 mmol/L (21-32); CREATININE 1.3 mg/dL (0.6-1.3); GLUCOSE 123 mg/dL (70-99); POTASSIUM 4.1 mmol/L (3.5-5.1); SODIUM 137 mmol/L (136-145); TROPONIN-I LEVEL <0.06 ng/mL (<0.06)
[2019-01-19 13:11] LABS: ALBUMIN 2.9 g/dL (3.4-5.0); ALKALINE PHOSPHATASE 67 U/L (46-116); NT-PRO BRAIN NAT PEPTIDE 3270 pg/mL (<300); SGOT 18 U/L (15-37); SGPT 25 U/L (30-65); TOTAL BILIRUBIN 0.4 mg/dL (<0.1-1.0); TOTAL PROTEIN 7.2 g/dL (6.4-8.2)
[2019-01-19] MEDS ORDERED: OMEPRAZOLE 20 M20 M1 PO (13:19)
[2019-01-19 16:35] VITALS: BP 116/74
--- NOTE | 2019-01-20 15:52 | EKG ---
[place] [address] ELECTROCARDIOGRAM REPORT Name: VA ARTIS Room: [facility]#: [id number] Admission: 01/19/19 Attend Phys: Discharge: 01/19/19 Date of : 35 Report #: [id number] THIS REPORT FOR: //name// [facility] ED Test Date: 2019-01-19 Test Time: 12:23:41 Pat Name: VA ARTIS Department: Room: Gender: F Gate Clerk: : 1935 Requested By: Jane Aguilera Order Number: [id number] MD: Damian Grajeda Measurements Intervals [place] Rate: 113 P: 114 MS: 184 QRS: -30 QRSD: 139 T: -23 QT: 364 QTc: 500 Interpretive Statements Sinus tachycardia Atrial premature complexes Right bundle branch block Compared to ECG 01/02/2019 08:29:28 Atrial premature complex(es) now present Ventricular premature complex(es) no longer present Electronically Signed On 01-20-2019 15:51:56 CDT by Damian Grajeda [email or web address] <ELECTRONICALLY SIGNED> By: Damian Grajeda MD, FACC 01/20/19 1551 1223 1223 Damian Grajeda MD, [facility] /EPI
== END 2019-01-19 16:35 | disposition home or self-care (01) ==
LOC: M.ERS 12:18
PROVIDERS: Personal Emergency Response Attendant
DX: K80.50 Calculus of bile duct without cholangitis or cholecystitis without obstruction (principal); I25.10 Atherosclerotic heart disease of native coronary artery without angina pectoris; M06.9 Rheumatoid arthritis, unspecified; I11.0 Hypertensive heart disease with heart failure; I50.22 Chronic systolic (congestive) heart failure; Z96.642 Presence of left artificial hip joint; Z86.711 Personal history of pulmonary embolism; Z95.1 Presence of aortocoronary bypass graft

== ENCOUNTER → 2019-01-26 | Outpatient (CLI) | payer MEDICARE, OTHER ==
[~2019-01-26] MED LIST changes: +COUMADIN 3 MG TA3 M1 PO; +OMEPRAZOLE 20 M20 M1 PO
--- NOTE | 2019-01-28 23:41 | SLEEP ---
[address] [address] SLEEP STUDY REPORT Name: VA ARTIS Room: [facility]#: [id number] Admission: 01/26/19 Attend Phys: Thomas Roy Discharge: Date of : 35 Report #: [id number] THIS REPORT FOR: //name// CC: Gabrielle Ron DO This study has been reviewed in its entirety by a board certified sleep specialist DATE OF SERVICE: 01/26/2019 ATTENDING PHYSICIAN: Gabrielle Ron DO. The patient is an 83-year-old who weighs 130 pounds with a BMI of 25.4. The patient underwent sleep study performed at [facility]. This is a split night study. During the night study, the patient spent 474 minutes in bed and slept for 302 minutes with a sleep efficiency of 63.7%, which was low. Sleep latency was 109 minutes, which was prolonged with a REM latency of 303 minutes. Overall, sleep architecture showed normal stage 1 and stage 2 sleep, normal N3 and normal REM sleep. During the initial diagnostic portion of the study, the patient slept for 59 minutes. During that time, the patient had 14 obstructive apneas, no mixed apneas and 3 central apneas and 27 hypopneas. The patient's apnea-hypopnea index was 81 per hour. REM sleep was not seen during the diagnostic portion. The patient's supine index was 120 per hour. EKG monitoring revealed an average heart rate of 115 beats per minute with a maximum of 142 beats per minute. It was irregular throughout consistent with atrial fibrillation.The average heart rate did improve to an average of 88 while on CPAP. PLMS were seen at an index of 22 per hour and 1.8 per hour caused EEG arousals. Nocturnal oximetry study revealed an average oxygen saturation of 93% with the lowest of 85%. 10.6 minutes were spent in oxygen saturation of less than 89%. The patient was started on CPAP at a pressure of 5 cm of water. The patient's final pressure was 8 cm of water. The patient did very well in all the pressures including supine and REM sleep and AHI was less than 1 per hour. At the final pressure of 8 cm of water, the patient slept for 57.7 minutes. The patient had supine sleep, but no REM sleep. The patient's AHI was reduced to 0 per hour and oxygen saturation remained above 94%. [place] [address] SLEEP STUDY REPORT Name: VA ARTIS Room: [facility]#: [id number] Admission: 01/26/19 Attend Phys: Thomas Roy Discharge: Date of : 35 Report #: [id number] IMPRESSION: 1. Severe sleep apnea-hypopnea syndrome at an AHI of 81 per hour. 2. Nocturnal hypoxia secondary to obstructive sleep apnea, but resolved with CPAP. 3. Mild to moderate PLMS. 4. Abnormal EKG consistent with Atrial Fibrillation. RECOMMENDATIONS: 1. CPAP at 8 cm of water completely eliminated the patient's sleep apnea and should be used on a nightly basis. 2. Follow up in 4-6 weeks to assess compliance with CPAP and to document clinical improvement. 3. Avoid ARCHITECT INTERN depressants. 4. Caution regarding driving until symptoms of sleep apnea resolve with the use of CPAP. 5. Follow up with cardiology regarding abnormal EKG if clinically indicated.. <ELECTRONICALLY SIGNED> By: John Sandoval MD 01/28/19 2341 [id number] Sandoval MD /nt
== END ==
LOC: M.SLEEPLAB 19:55
DX: G47.33 Obstructive sleep apnea (adult) (pediatric) (principal); G47.34 Idiopathic sleep related nonobstructive alveolar hypoventilation; G47.61 Periodic limb movement disorder; J96.21 Acute and chronic respiratory failure with hypoxia

== ENCOUNTER 2019-03-05 20:16 | Inpatient (IN) | payer MEDICARE, OTHER ==
[~2019-03-05] VITALS: Ht 152.4 cm; Wt 71.7 kg
[2019-03-05 20:19] VITALS: BP 152/90
[2019-03-05] MEDS ORDERED: COUMADIN 4 MG TA4 M1 PO (20:36)
[2019-03-05 21:14] LABS: ABSOLUTE BASOPHILS 0.1 thou/uL (0.0-0.2); ABSOLUTE EOSINOPHILS 0.1 thou/uL (0.0-0.7); ABSOLUTE LYMPHOCYTES 1.5 thou/uL (0.8-5.3); ABSOLUTE MONOCYTES 0.9 thou/uL (0.0-1.2); ABSOLUTE NEUTROPHILS 6.9 thou/uL (1.6-8.1); EOSINOPHILS 0.8 %; HEMATOCRIT 27.7 % (37.0-47.0); HEMOGLOBIN 8.8 gm/dL (12.0-15.0); LYMPHOCYTES 16.1 %; MCH 23.3 pg (26.0-34.0); MCHC 31.8 g/dL (28.0-37.0); MCV 73.3 fL (80.0-100.0); MONOCYTES 9.1 %; MPV 9.2 fl. (7.2-11.1); NUCLEATED RBCS 0 /100WBC; PLATELET COUNT* 266 thou/uL (150-400); RBC 3.78 mil/uL (4.20-5.00); RDW-CV 19.9 % (10.5-14.5); WBC 9.4 thou/uL (4.0-11.0)
[2019-03-05 21:20] LABS: ANION GAP 10 mmol/L (7-16); BUN 24 mg/dL (7-18); CALCIUM 8.6 mg/dL (8.5-10.1); CHLORIDE 93 mmol/L (98-107); CO2 24 mmol/L (21-32); CREATININE 1.2 mg/dL (0.6-1.3); GLUCOSE 136 mg/dL (70-99); POTASSIUM 4.4 mmol/L (3.5-5.1); SODIUM 127 mmol/L (136-145)
[2019-03-05 21:28] LABS: INR 2.5; PROTIME 25.3 Seconds (9.20-11.50)
[2019-03-05 21:32] LABS: ALBUMIN 2.6 g/dL (3.4-5.0); ALKALINE PHOSPHATASE 75 U/L (46-116); LIPASE 159 U/L (73-393); NT-PRO BRAIN NAT PEPTIDE 24708 pg/mL (<300); SGOT 21 U/L (15-37); SGPT 22 U/L (30-65); TOTAL BILIRUBIN 0.8 mg/dL (<0.1-1.0); TOTAL PROTEIN 6.7 g/dL (6.4-8.2); TROPONIN-I LEVEL <0.06 ng/mL (<0.06)
[2019-03-06] VITALS (8 sets, daily range): BP systolic 101–125; BP diastolic 45–72
[2019-03-06 00:16] LABS: URINE BILIRUBIN NEGATIVE (Negative); URINE BLOOD NEGATIVE (Negative); URINE CLARITY CLEAR; URINE COLOR YELLOW; URINE GLUCOSE-RANDOM NEGATIVE (Negative); URINE KETONES NEGATIVE (Negative); URINE LEUKOCYTES-REFLEX NEGATIVE (Negative); URINE NITRITE-REFLEX NEGATIVE (Negative); URINE PROTEIN NEGATIVE (Negative); URINE SPECIFIC GRAVITY <= 1.005 (1.005-1.030); URINE UROBILINOGEN 0.2 E.U./dl (0.2-1.0)
--- NOTE | 2019-03-06 06:29 | NUR ---
DR ROMERO TALKED WITH DR JENSEN FOR CARDIOLOGY CONSULT.
[2019-03-06 06:38] LABS: CALCIUM 8.5 mg/dL (8.5-10.1); POTASSIUM 3.9 mmol/L (3.5-5.1)
--- NOTE | 2019-03-06 13:11 | NUR ---
RECEIVED REPORT AND ASSUMED CARE OF PT AT 0830.PT IS ALERT AND ORIENTED X4.TRACING SR ON THE MONITOR.ON RA.CHEST PORT PATENT5 AND SALINE LOCKED.NO COMPLAINTS OF PAIN.NO SKIN ISSEUS.UP AD VALERIE.CALL LIGHT ND FALL PRECAUTIONS IN PLACE.PLAN TO DISCHARGE PER ORDER.CALL LIGHT AND FALL PRECAUTIONS IN PLACE.WILL CONTINUE TO MONITOR. PT OK TO DISCHARGE.ALL DISCHARGE PAPER WORK COMPLETED.CHEST PORT TAKEN OUT WITH HEPARIN FLUSH.HEART MONITOR TAKEN OUT AND RETURNED TO MONITOR.ALL PERSONAL BELONGINGS HANDED OVER TO PT.DISCHARGE EDUCATION GIVEN TO PT ON FOLLOW UP AND MEDS.PT WAITING ON ROOM FOR HER RIDE.
--- NOTE | 2019-03-06 14:09 | NUR ---
NEW ADMISSION RECEIVED FROM ER WITH AFIB AND RESPERITARY DISTRESS.PT CONVERTED TO SR ON ER BUT CARDIZEM DRIP WAS CONITUE WHEN SHE GOT UP HERE.ON 2 L NC.CPAP AT NIGHT.CPAP AT PT BEDSIDE. .UP STAND BY.CARDIZEM DRIP STOPPED PER ORDER.PT IS A/OX4.VSS.ONE TIME DOSE OF ANTIBIOTIC GIVEN PER JAMA.CALL LIGHT AND FALL PRECAUTIONS IN PLACE. WILL CONTINUE TO MONITOR.
--- NOTE | 2019-03-06 17:48 | NUR ---
VSS.TRACING SR BBB WITH PVCS ON THE MONITOR.ON 2 L NC.NO COMPLAINTS OF SOA AND CHEST PAIN.WEARS CPAP AT NIGHT.VENOUS DOPPLER ON BL LOWER EXTREMITIES COMPLETED.NEW IV PLACED ON LFA SALINE LOCKED.LEGS SWOLLEN.IV LASIX GIVEN PER ORDER.CALL LIGHT AND FALL PRECAUTIONS IN PLACE.WILL CONTINUE TO MONITOR.
[2019-03-07] VITALS: BP 96/45
[2019-03-07 04:00] VITALS: BP 104/50
[2019-03-07 04:53] LABS: HEMATOCRIT 23.3 % (37.0-47.0); HEMOGLOBIN 7.6 gm/dL (12.0-15.0); MCH 23.6 pg (26.0-34.0); MCHC 32.6 g/dL (28.0-37.0); MCV 72.4 fL (80.0-100.0); MPV 9.2 fl. (7.2-11.1); RBC 3.22 mil/uL (4.20-5.00); RDW-CV 19.4 % (10.5-14.5); WBC 6.8 thou/uL (4.0-11.0)
[2019-03-07 05:02] LABS: PROTIME 30.6 Seconds (9.20-11.50)
[2019-03-07 05:09] LABS: CALCIUM 8.1 mg/dL (8.5-10.1); CREATININE 1.1 mg/dL (0.6-1.3); MAGNESIUM 1.8 mg/dL (1.8-2.4); POTASSIUM 3.4 mmol/L (3.5-5.1)
--- NOTE | 2019-03-07 07:00 | NUR ---
ASSUMED PT CARE AT 1930. ASSESSMENT COMPLETED CHARTED. ABLE TO MAKE NEEDS KNOWN. UP WITH STANDBY, CPAP SET UP, PT RESTING IN BED AT THIS TIME. NO C/O PAIN OR DISCOMFORT. VSS. WILL CONTINUE TO MONITOR.
--- NOTE | 2019-03-07 10:00 | NUR ---
RECEIVED REPORT AND ASSUMED CARE OF PT AT 0730.PT IS A/OX4.VERY CALM AND COOPERATIVE.TRACING SINUS ARRYTHMIAS ON THE MONITOR.ON 2 L NC.EDEMA GETTING BETTER THAN YESTERDAY ON BL LOWER EXTREMITIES.UP STAND BY.ONE DOSE OF PO POTTASSIUM SUPPLEMENT GIVEN PER ORDER.CALL LIGHT AND FALL PRECAUTIONS IN PLACE.WILL CONTINUE TO MONITOR.
--- NOTE | 2019-03-07 11:07 | CON ---
[address] [address] CONSULTATION Name: VA ARTIS Room: [address] IN .R.#: [id number] Admission: 03/05/19 Attend Phys: Robin Esparza Discharge: Date of : 35 Report #: [id number] THIS REPORT FOR: //name// CC: Gabrielle Ariadne Barrera DATE OF SERVICE: 03/06/2019 CARDIOLOGY CONSULTATION HISTORY OF PRESENT ILLNESS: I was asked by Dr. Barrera to see this 83-year-old white female in cardiology consultation for evaluation and treatment of tachycardia as well as congestive heart failure. This lady has a history of multifocal atrial tachycardia and it appears she had that entity on this admission. Additionally, she has a history of congestive heart failure. She has a variety of other problems including coronary artery disease and ischemic cardiomyopathy, previous bypass graft surgery, essential hypertension, hypercholesterolemia and COPD. She had progressive dyspnea on exertion for the last several weeks. She has not had any chest pain or angina. She actually denied orthopnea or PND to me. She has had increasing edema, especially in her right leg. She has not had any syncope. Coronary risk factors include hypercholesterolemia, but not diabetes or smoking. She does have high blood pressure. There is a family history of coronary heart disease. She has not had renal failure. She has not had peripheral vascular disease or strokes. She has not had claudication or open or nonhealing wounds. PAST CARDIAC HISTORY: As described above, as is the remainder of the past medical history. HOME MEDICATIONS: Include carvedilol 12.5 mg b.i.d., Cymbalta 30 mg daily, folic acid 1 mg daily, furosemide 60 mg b.i.d. She is not on an DEISY inhibitor or an ARB because of relative hypotension. She takes p.r.n. nitroglycerin. She has been on omeprazole 40 mg daily, simvastatin 80 mg at bedtime, spironolactone 25 mg daily, Restoril 15 mg at bedtime p.r.n. and warfarin 3 mg daily, I believe this is for a past history of pulmonary emboli, but she has had more than one pulmonary embolism. She alternates 3 mg on Friday, Friday, Friday and with 4 mg on Friday, Friday and Friday. FAMILY HISTORY: Includes 2 brothers with coronary heart disease. Her mother suddenly with a stroke at age 87. SOCIAL HISTORY: She is . Does not smoke, drink or use illegal drugs. REVIEW OF SYSTEMS: She says she has had pneumonia. She has palpitations, chest discomfort, shortness of breath with exercise, shortness of breath lying down, waking up short of breath and extremity edema. She [place] [address] CONSULTATION Name: VA ARTIS Room: [address] IN [facility]#: [id number] Admission: 03/05/19 Attend Phys: Robin Esparza Discharge: Date of : 35 Report #: [id number] medical allergies, she is not sure what, apparently LISINOPRIL, according to the chart. She has arthritis, rashes, hives, chronic skin condition, wearing glasses and decreased hearing. Otherwise, review of systems is negative for some 30 different complaints in 14 different system categories including central nervous system, general, respiratory, cardiovascular, endocrine, gastrointestinal, genitourinary, hematologic, lymphatic, allergic, immunologic, psychiatric, musculoskeletal, skin, eyes, ears, nose, mouth and throat. Please see our review of system form for details and negatives in review of systems. PHYSICAL EXAMINATION: GENERAL: She presents as well-developed, well-nourished white female, in no acute distress. VITAL SIGNS: Pulse was 93 and irregular, blood pressure is 113/68, respirations 17 and regular, temperature is 97.2. HEENT: Her head was atraumatic. Eyes clear. NECK: Supple. There is no jugular venous distention or hepatojugular reflux. Thyroid is not enlarged. There is no adenopathy. SKIN: Warm and dry. Mucous membranes are moist. LUNGS: Clear to auscultation and percussion. HEART: Revealed normal first and second heart sounds. There is a soft S4. There is no S3. There are no murmurs, rubs, thrills, heaves or gallops. PMI is nondisplaced. ABDOMEN: Soft, flat, nontender. No palpable masses, no organomegaly. EXTREMITIES: Reveal no cyanosis or clubbing. There is 2+ edema in her right leg, but only trace on the left. She did have venous Doppler today, which did not show any thrombi in the right leg. NEUROLOGIC: The patient mentated normally, talked normally and moved all extremities normally. Her BNP when she came to the ER was almost 25,000. Chest x-ray showed interstitial edema and left pleural effusion. Her EKG showed what appears to be sinus rhythm with frequent atrial premature beats and probably MAT with some runs of atrial tachycardia as well. There is an old anteroseptal infarct and a right bundle branch block. IMPRESSION: 1. Congestive heart failure, acute on chronic systolic type. She probably also has diastolic heart failure. 2. Sinus tachycardia with premature atrial contractions and probable multifocal atrial tachycardia. 3. Coronary artery disease. 4. Ischemic cardiomyopathy. 5. Essential hypertension. 6. Hypercholesterolemia. 7. Status post coronary artery bypass graft surgery. 8. Chronic obstructive pulmonary disease. [address] [address] CONSULTATION Name: VA ARTIS Room: [address] IN ..#: [id number] Admission: 03/05/19 Attend Phys: Robin Esparza Discharge: Date of : 35 Report #: [id number] RECOMMENDATIONS: I would simply diurese her at this point and if tolerated, she may require a bigger dose of carvedilol, but for the time being, I would just diurese her further. I think from the sound of this, she slipped into heart failure and then was sufficiently dyspneic and insufficient distress that she drove her heart rate up. Thank you very much for asking me to see this patient. If there are any questions, please feel free to contact me. <ELECTRONICALLY SIGNED> By: Karyna Peralta MD, FACC 03/07/19 1107 [id number]. Juan Jose Peralta MD, FACC /nt
[2019-03-07 12:29] VITALS: BP 88/49
[2019-03-07 12:34] VITALS: BP 106/62
[2019-03-07 15:37] VITALS: BP 90/48
--- NOTE | 2019-03-07 18:09 | NUR ---
PT IS A/OX4.TRACING SR TO SINUS ARRYTHMIAS ON THE MONITOR.ON 2 L NC.CPAP AT NIGHT.IV PATENT AND SALINE LOCKED.IV LASIX GIVEN PER ORDER.UP STAND BY.EDEMA PRESENT ON BL LOWER EXTREMITIES MOSTLY ON HER RT ANKLE.PT WANTS TO BE DISCHARGED BY TOMORROW.POSSIBLE DC TOMMORROW AFTER ECHO COMPLETED.NO COMLAINTS OF SOA AND CHEST PAIN.CALL LIGHT AND FALL PRECAUTIONS IN PLACE.WILL CONTINUE TO MONITOR.
[2019-03-07 20:00] VITALS: BP 130/63
[2019-03-08] VITALS: BP 122/62
[2019-03-08 04:00] VITALS: BP 112/58
[2019-03-08 05:06] LABS: ABSOLUTE EOSINOPHILS 0.1 thou/uL (0.0-0.7); ABSOLUTE LYMPHOCYTES 1.4 thou/uL (0.8-5.3); ABSOLUTE MONOCYTES 0.8 thou/uL (0.0-1.2); ABSOLUTE NEUTROPHILS 7.4 thou/uL (1.6-8.1); BASOPHILS 0.5 %; EOSINOPHILS 0.5 %; HEMATOCRIT 25.8 % (37.0-47.0); HEMOGLOBIN 8.2 gm/dL (12.0-15.0); LYMPHOCYTES 14.2 %; MCHC 31.7 g/dL (28.0-37.0); MCV 72.7 fL (80.0-100.0); MONOCYTES 8.5 %; NUCLEATED RBCS 0 /100WBC; PLATELET COUNT* 256 thou/uL (150-400); POLYS 76.3 %; RBC 3.55 mil/uL (4.20-5.00); RDW-CV 19.6 % (10.5-14.5); WBC 9.7 thou/uL (4.0-11.0)
[2019-03-08 05:15] LABS: APTT 32.7 Seconds (25.0-31.3); INR 3.3
[2019-03-08 05:39] LABS: CALCIUM 8.5 mg/dL (8.5-10.1); CREATININE 1.3 mg/dL (0.6-1.3); MAGNESIUM 1.7 mg/dL (1.8-2.4); POTASSIUM 4.7 mmol/L (3.5-5.1)
--- NOTE | 2019-03-08 05:44 | NUR ---
ASSUMED PT CARE AT 1930. ASSESSMENT COMPLETED CHARTED. ABLE TO MAKE NEEDS KNOWN. UP WITH STANDBY TO BATHROOM. CPAP ON DURING THE NIGHT. PT RESTING IN BED AT THIS TIME. A LITTLE MORE DIFFICULTY WALKING ON RIGHT FOOT WERE IT IS SWOLLEN. NO C/O PAIN OR DISCOMFORT OTHERWISE. VSS. WILL CONTINUE TO MONITOR.
[2019-03-08 08:31] VITALS: BP 112/78
--- NOTE | 2019-03-08 11:04 | NUR ---
Pt asleep when CM went to assess, will f/u later
[2019-03-08 11:57] VITALS: BP 100/54
--- NOTE | 2019-03-08 12:32 | EKG ---
[place] [address] ELECTROCARDIOGRAM REPORT Name: VA ARTIS Room: [address] ADM IN .R.#: [id number] Admission: 03/05/19 Attend Phys: Robin Esparza Discharge: Date of : 35 Report #: [id number] THIS REPORT FOR: //name// [facility] ED Test Date: 2019-03-05 Test Time: 20:25:48 Pat Name: VA ARTIS Department: Room: [facility] Gender: F Hospital Intern: [place] : 1935 Requested By: Coretta Crocker Order Number: [id number] MD: Damian Grajeda Measurements Intervals [place] Rate: 118 P: 32 MI: 173 QRS: 43 QRSD: 143 T: -13 QT: 324 QTc: 455 Interpretive Statements Sinus tachycardia Multiple premature complexes, vent & supraven Right bundle branch block Anteroseptal infarct, age indeterminate Baseline wander in lead(s) V3,V4 Compared to ECG 01/19/2019 12:23:41 Myocardial infarct finding now present Electronically Signed On 03-08-2019 12:32:31 CDT by Damian Grajeda [email or web address] <ELECTRONICALLY SIGNED> By: Damian Grajeda MD, FAC 03/08/19 1232 24 24 Damian Grajeda MD, [facility] /EPI
--- NOTE | 2019-03-08 12:38 | EKG ---
[place] [address] ELECTROCARDIOGRAM REPORT Name: VA ARTIS Room: [address] ADM IN M.R.#: [id number] Admission: 03/05/19 Attend Phys: Robin Esparza Discharge: Date of : 35 Report #: [id number] THIS REPORT FOR: //name// [facility] Test Date: 2019-03-06 Test Time: 20:57:00 Pat Name: VA ARTIS Department: Room: [address] Gender: F Recruitment And Outreach Assistant: [facility] : 1935 Requested By: William Pool Order Number: [id number] Andrew MD: Damian Grajeda Measurements Intervals [place] Rate: 88 P: 51 AK: 206 QRS: 36 QRSD: 150 T: -5 QT: 407 QTc: 493 Interpretive Statements Sinus rhythm with pac's Right bundle branch block Compared to ECG 01/19/2019 12:23:41 Ventricular premature complex(es) now present Sinus tachycardia no longer present Electronically Signed On 03-08-2019 12:38:39 CDT by Damian Grajeda [email or web address] <ELECTRONICALLY SIGNED> By: Damian Grajeda MD, [facility] 03/08/19 1238 56 56 Damian Grajeda MD, [facility] /EPI
[2019-03-08] MEDS ORDERED: CARVEDILOL25 MG PO (13:03)
[2019-03-08 16:00] VITALS: BP 86/53
--- NOTE | 2019-03-08 17:03 | 2DMMODE ---
[place] [address] 2 D/M-MODE ECHOCARDIOGRAM Name: VA ARTIS Room: [address] IN [facility]#: [id number] Admission: 03/05/19 Attend Phys: Samantha Barrera Discharge: Date of : 35 Date of Service: 03/08/19 1703 Report #: [id number] THIS REPORT FOR: //name// APPROVED REPORT Study performed: 03/08/2019 14:56:52 EXAM: Comprehensive 2D, Doppler, and color-flow Echocardiogram Patient Location: In-Patient Room #: [facility] Status: routine BSA: 1.69 HR: 105 bpm BP: 112/78 mmHg Rhythm: NSR Other Information Study Quality: Good Indications Congestive Heart Failure Dyspnea 2D Dimensions IVSd: 12.15 (7-11mm) LVOT Diam: 19.48 (18-24mm) LVDd: 53.49 mm PWd: 10.43 (7-11mm) Ascending Ao: 32.41 (22-36mm) LVDs: 47.76 (25-40mm) Aortic Root: 28.70 mm Volumes Left Atrial Volume (Systole) LA ESV Index: 57.90 mL/m2 Aortic Valve AoV Peak Damir.: 1.65 m/s AO Peak Gr.: 10.92 mmHg LVOT Max P.81 mmHg AO Mean Gr.: 6.27 mmHg LVOT Mean P.64 mmHg LVOT Max V: 0.98 m/s AO V2 VTI: 27.26 cm LVOT Mean V: 0.57 m/s DORIS (VTI): 1.62 cm2 LVOT V1 VTI: 14.83 cm TDI Medial E' Damir.: 0.08 m/s Lateral E' Damir.: 0.11 m/[place] [address] 2 D/M-MODE ECHOCARDIOGRAM Name: VA ARTIS Room: [address] IN [facility]#: [id number] Admission: 03/05/19 Attend Phys: Samantha Barrera Discharge: Date of : 35 Date of Service: 03/08/19 1703 Report #: [id number] Pulmonary Valve PV Peak Damir.: 0.72 m/s PV Peak Gr.: 2.06 mmHg Tricuspid Valve RAP Estimate: 5.00 mmHg TR Peak Gr.: 22.29 mmHg RVSP: 27.00 mmHg PA Pressure: 27.00 mmHg Left Ventricle The left ventricle is normal size. There is moderate global hypokinesis of the left ventricle. There is normal left ventricular wall thickness. Left ventricular systolic function is moderately decreased. LVEF is 40%. Right Ventricle The right ventricle is normal size. The right ventricular systolic function is normal. Atria Left atrium is moderately dilated. Right atrium is mildly dilated. Aortic Valve Moderate aortic valve sclerosis. Trace aortic regurgitation. No hemodynamically significant valvular aortic stenosis. Mitral Valve There is mitral annular calcification. Moderate mitral regurgitation. No evidence of mitral valve stenosis. Tricuspid Valve The tricuspid valve is normal in structure. Moderate tricuspid regurgitation. No pulmonary hypertension. Pulmonic Valve The pulmonary valve is normal in structure. Mild pulmonic regurgitation. Great Vessels The aortic root is normal in size. IVC is normal in size and collapses >50% with inspiration. Pericardium There is [place] [address] 2 D/M-MODE ECHOCARDIOGRAM Name: VA ARTIS Room: [address] [place] ..#: [id number] Admission: 03/05/19 Attend Phys: Samantha Barrera Discharge: Date of : 35 Date of Service: 03/08/19 1703 Report #: [id number] <Conclusion> The left ventricle is normal size. There is normal left ventricular wall thickness. Left ventricular systolic function is moderately decreased. LVEF is 40%. The right ventricle is normal size. Left atrium is moderately dilated. Right atrium is mildly dilated. Moderate aortic valve sclerosis. Trace aortic regurgitation. No hemodynamically significant valvular aortic stenosis. There is mitral annular calcification. Moderate mitral regurgitation. No evidence of mitral valve stenosis. The tricuspid valve is normal in structure. IVC is normal in size and collapses >50% with inspiration. There is moderate global hypokinesis of the left ventricle. <ELECTRONICALLY SIGNED> By: Damian Grajeda MD, [facility] 03/08/191702 02 02 Damian Grajeda MD, FACC /INF
[2019-03-08] MEDS ORDERED: LEVAQUIN 750 M750 MG PO (17:15)
--- NOTE | 2019-03-08 19:39 | NUR ---
PT A/0X4, VSS, SB/BBB ON THE MONITOR. PT ON 2L O2 THIS AM, SATS LOW 90'S, CPAP HS. FALL PRECAUTIONS IN PLACE. PT NEEDS REENFORCEMENT TO USE CALL LIGHT. DISCHARGE ORDERS RECEIVED, ECHO DONE, REVIEWED RESULTS WITH . PT LEFT UNIT AT APPROX 1740 WITH SON.
== END 2019-03-08 19:43 | disposition home or self-care (01) | DRG 177 ==
LOC: M.ERS 20:16 → M.TBA-ER 22:04 → M.2W 22:04
PROVIDERS: Emergency Medicine; Internal Medicine; ADMIT Internal Medicine
DX: J15.6 Pneumonia due to other Gram-negative bacteria (principal); I50.23 Acute on chronic systolic (congestive) heart failure; E87.1 Hypo-osmolality and hyponatremia; I25.10 Atherosclerotic heart disease of native coronary artery without angina pectoris; Z96.642 Presence of left artificial hip joint; M06.9 Rheumatoid arthritis, unspecified; I25.5 Ischemic cardiomyopathy; I11.0 Hypertensive heart disease with heart failure; E78.00 Pure hypercholesterolemia, unspecified; J44.9 Chronic obstructive pulmonary disease, unspecified; E83.42 Hypomagnesemia; I48.91 Unspecified atrial fibrillation; D64.9 Anemia, unspecified; Z82.49 Family history of ischemic heart disease and other diseases of the circulatory system; Z86.711 Personal history of pulmonary embolism; Z79.01 Long term (current) use of anticoagulants; Z99.81 Dependence on supplemental oxygen; Z95.1 Presence of aortocoronary bypass graft; Z79.899 Other long term (current) drug therapy; Z88.8 Allergy status to other drugs, medicaments and biological substances

== ENCOUNTER 2019-03-11 16:54 | Inpatient (IN) | payer MEDICARE, OTHER ==
[~2019-03-11] VITALS: Ht 152.4 cm; Wt 60.3 kg
--- NOTE | ~2019-03-11 | CON ---
[address] [address] CONSULTATION Name: VA ARTIS Room: [address] IN .#: [id number] Admission: 03/11/19 Attend Phys: Robin Esparza Discharge: Date of : 35 Report #: [id number] THIS REPORT FOR: //name// CC: Gabrielle Ariadne Barrera DATE OF SERVICE: 03/13/2019 REASON FOR CONSULTATION: Severe anemia and left lower quadrant abdominal pain. HISTORY OF PRESENT ILLNESS: This is an 83-year-old female who was recently discharged from hospital with CHF exacerbation. The patient went home and was not feeling good, dizzy and nauseous. She also had some left lower quadrant abdominal pain, which prompted her to come back to hospital. Upon Emergency Room visit, she was found to be hyponatremic with sodium of 127. She also was found to have evidence of sigmoid diverticulitis. She is anemic, with her hemoglobin being 8.3 and MCV of 72. She denies any hematochezia or melena and reports that her last colonoscopy was more than 10 years ago. She does not take any iron supplements. PAST MEDICAL HISTORY: Significant for history of anemia, renal failure, arthritis, CHF, mitral regurgitation, AFib and hypertension. ALLERGIES: SIGNIFICANT FOR LISINOPRIL. MEDICATIONS: Please refer to MAR. SOCIAL HISTORY: The patient lives at home. She is a current smoker and may occasionally have alcoholic beverage. FAMILY HISTORY: Negative for GI malignancy. PHYSICAL EXAMINATION: VITAL SIGNS: Reveals blood pressure of 118/69, respirations 18, pulse 86 and temperature 98. LUNGS: Clear. CARDIOVASCULAR: Regular. ABDOMEN: Soft, mildly tender to palpation in the left lower quadrant. Bowel sounds are positive. NEUROLOGIC: The patient is alert, oriented x 3. LABORATORY DATA: Labs reveal sodium of 130, potassium 4.2, BUN is 22, creatinine 1.2 and glucose 185. Liver function tests are all within normal limits. Magnesium is 1.6. ALT is 16, alkaline phosphatase 72. Albumin 2.6. INR is 4.4. WBC is 4.7, hemoglobin 8.1 with platelets of 218,000. [place] [address] CONSULTATION Name: VA ARTIS Room: [address] IN [facility].#: [id number] Admission: 03/11/19 Attend Phys: Robin Esparza Discharge: Date of : 35 Report #: [id number] IMAGING: As discussed above. ASSESSMENT AND PLAN: The patient with history of congestive heart failure, who is on diuretics and was severely hyponatremic when presented, which was symptomatic. We will recommend for Cardiology to come and re-evaluate her and adjust her medications. She also has evidence of diverticulitis and has not had a colonoscopy for more than 10 years. She reports she is constipated. So we want her to be on MiraLax routinely. I will consider upper and lower endoscopy to evaluate her anemia and also diverticulitis. Meanwhile, we will check her for iron and B12 levels and replace those. The patient and daughter are agreeable with the plan. By: 1501 [id number] Lorenzo MD /nt
[~2019-03-11 16:54] MED LIST changes: +LEVAQUIN 750 M750 MG PO
[2019-03-11 17:16] VITALS: BP 121/73
[2019-03-11 17:38] LABS: ABSOLUTE BASOPHILS 0.1 thou/uL (0.0-0.2); BASOPHILS 1.2 %; HEMOGLOBIN 8.7 gm/dL (12.0-15.0); MCV 72.1 fL (80.0-100.0); NUCLEATED RBCS 0 /100WBC
[2019-03-11 17:41] LABS: ABSOLUTE EOSINOPHILS 0.1 thou/uL (0.0-0.7); ABSOLUTE LYMPHOCYTES 1.9 thou/uL (0.8-5.3); ABSOLUTE MONOCYTES 0.7 thou/uL (0.0-1.2); EOSINOPHILS 1.7 %; HEMATOCRIT 27.3 % (37.0-47.0); LYMPHOCYTES 27.8 %; MCH 22.9 pg (26.0-34.0); MCHC 31.7 g/dL (28.0-37.0); MONOCYTES 9.9 %; MPV 8.5 fl. (7.2-11.1); PLATELET COUNT* 245 thou/uL (150-400); POLYS 59.4 %; RBC 3.78 mil/uL (4.20-5.00); WBC 6.7 thou/uL (4.0-11.0)
[2019-03-11 17:50] LABS: ANION GAP 6 mmol/L (7-16); BUN 24 mg/dL (7-18); CHLORIDE 91 mmol/L (98-107); CO2 27 mmol/L (21-32); CREATININE 1.4 mg/dL (0.6-1.3); GLUCOSE 108 mg/dL (70-99); POTASSIUM 4.5 mmol/L (3.5-5.1); SODIUM 124 mmol/L (136-145)
[2019-03-11 17:51] LABS: APTT 38.4 Seconds (25.0-31.3); INR 4.4; PROTIME 44.5 Seconds (9.20-11.50)
[2019-03-11 18:02] LABS: ALBUMIN 2.6 g/dL (3.4-5.0); ALKALINE PHOSPHATASE 72 U/L (46-116); NT-PRO BRAIN NAT PEPTIDE 13588 pg/mL (<300); SGOT 15 U/L (15-37); SGPT 16 U/L (30-65); TOTAL BILIRUBIN 0.5 mg/dL (<0.1-1.0); TOTAL PROTEIN 6.9 g/dL (6.4-8.2); TROPONIN-I LEVEL <0.06 ng/mL (<0.06)
[2019-03-11 18:15] LABS: OVALOCYTES 1+; PLATELET ESTIMATE ADEQUATE
[2019-03-11 18:16] LABS: MICROCYTES 2+
[2019-03-11 18:18] LABS: ANISOCYTOSIS 1+
[2019-03-11 18:20] LABS: HYPOCHROMASIA 1+; TARGET CELLS Occasional
[2019-03-11 21:00] LABS: URINE BILIRUBIN NEGATIVE (Negative); URINE BLOOD NEGATIVE (Negative); URINE CLARITY CLEAR; URINE COLOR YELLOW; URINE GLUCOSE-RANDOM NEGATIVE (Negative); URINE KETONES NEGATIVE (Negative); URINE LEUKOCYTES-REFLEX NEGATIVE (Negative); URINE NITRITE-REFLEX NEGATIVE (Negative); URINE PROTEIN NEGATIVE (Negative); URINE UROBILINOGEN 0.2 E.U./dl (0.2-1.0)
[2019-03-11 22:44] VITALS: BP 114/70
[2019-03-12] VITALS: BP 125/68
[2019-03-12 04:15] VITALS: BP 131/78
--- NOTE | 2019-03-12 07:01 | NUR ---
THIS NURSE RECEIVED REPORT FROM FER ARMIJO. THIS NURSE TO ASSUME PT CARE AT THIS TIME.
[2019-03-12 08:29] LABS: HEMOGLOBIN 8.1 gm/dL (12.0-15.0); MPV 9.2 fl. (7.2-11.1); NUCLEATED RBCS 0 /100WBC
[2019-03-12 08:30] LABS: ABSOLUTE BASOPHILS 0.1 thou/uL (0.0-0.2); ABSOLUTE EOSINOPHILS 0.1 thou/uL (0.0-0.7); ABSOLUTE MONOCYTES 0.4 thou/uL (0.0-1.2); ABSOLUTE NEUTROPHILS 3.5 thou/uL (1.6-8.1); BASOPHILS 1.3 %; EOSINOPHILS 1.9 %; HEMATOCRIT 25.3 % (37.0-47.0); LYMPHOCYTES 32.8 %; MCH 23.1 pg (26.0-34.0); MCV 72.2 fL (80.0-100.0); MONOCYTES 6.8 %; PLATELET COUNT* 224 thou/uL (150-400); POLYS 57.2 %; RDW-CV 19.5 % (10.5-14.5); WBC 6.2 thou/uL (4.0-11.0)
[2019-03-12 08:31] LABS: CALCIUM 8.5 mg/dL (8.5-10.1); CREATININE 1.2 mg/dL (0.6-1.3); MAGNESIUM 1.5 mg/dL (1.8-2.4); POTASSIUM 4.1 mmol/L (3.5-5.1)
[2019-03-12 09:01] LABS: PROTIME 40.7 Seconds (9.20-11.50)
--- NOTE | 2019-03-12 11:11 | EKG ---
[place] [address] ELECTROCARDIOGRAM REPORT Name: VA ARTIS Room: [place] [address] ADM IN .R.#: [id number] Admission: 03/11/19 Attend Phys: Robin Esparza Discharge: Date of : 35 Report #: [id number] THIS REPORT FOR: //name// [facility] ED Test Date: 2019-03-11 Test Time: 17:17:57 Pat Name: VA ARTIS Department: Room: [facility] Gender: F Book Or Script Editor: MS : 1935 Requested By: Kel Trujillo Order Number: [id number] MD: Scout Zavala Measurements Intervals [place] Rate: 93 P: 28 ND: 181 QRS: 7 QRSD: 151 T: -16 QT: 383 QTc: 477 Interpretive Statements Sinus rhythm Multiple premature complexes, vent & supraven Right bundle branch block Compared to ECG 03/06/2019 20:57:00 No significant changes Electronically Signed On 03-12-2019 11:11:22 CDT by Scout Zavala [email or web address] <ELECTRONICALLY SIGNED> By: Scout Zavala MD, FACC 03/12/19 1111 1717 1717 Scout Zavala MD, FAC /EPI
--- NOTE | 2019-03-12 15:46 | NUR ---
PT DAUGHTER AT NURSE'S STATION STATING SHE WOULD LIKE PT TO LEAVE AND GO TO [place] BECAUSE "SHE SHOULD BE GETTING BETTER CARE". PT DAUGHTER WENT ON TO STATE SHE WOULD LIKE A GI DOCTOR AND COOK ROAST ON PT CASE. HOSPITALIST CONTACTED BY THIS NURSE, DR. VILLATORO STATED HE WOULD BE HAPPY TO PUT CARDIOLOGY ON PT CASE BUT DID NOT SEE WHY GI DOCTOR WOULD NEED TO BE CONSULTED. FURTHER STATED HE WOULD BE OKAY WITH TRANSFERRING PT IF THOSE WERE PT WISHES. PT AND PT DAUGHTER MADE AWARE OF CONVERSATION WITH DR. VILLATORO AND STATED THEY WOULD LIKE TO TALK AMONGST ONE ANOTHER AND GET BACK TO NURSE WITH DECISION. NURSE CLOSED DOOR TO LET PT AND PT FAMILY TALK.
--- NOTE | 2019-03-12 15:56 | NUR ---
PT DAUGHTER STATES THAT PT WANTS TO STAY AT THIS HOSPITAL. PT DAUGHTER ASKED IF PT WAS GOING TO SEE GI DOCTOR. NURSE REITERATED WHAT DR. VILLATORO TOLD NURSE ABOUT PT DIVERTICULITIS BEING TREATED APPROPRIATELY AND NO NEED FOR GI CONSULT. PT DAUGHTER STATED PT "SHE HAS NOT POOPED IN TWO MONTHS, WHY THE FUCK DOES NO ONE UNDERSTAND THAT?". NURSE EXPLAINED THAT SHE WOULD HAVE THE CHEMICAL PROCESSOR COME DOWN AND TALK WITH PT AND PT DAUGHTER. PT DAUGHTER EXPRESSED APPRECIATION. ROMARIO Dolan RN/CHEMICAL PROCESSOR CONTACTED BY THIS NURSE AND IN PT ROOM TALKING WITH PT AND FAMILY AT THIS TIME.
--- NOTE | 2019-03-12 16:23 | NUR ---
ROMARIO Dolan RN/ACCOUNTS PAYABLE ASSISTANT TALKED WITH DR. VILLATORO ABOUT CONVERSATION WITH PT AND PT FAMILY. PT AND PT FAMILY STATED THEY ARE FINE WITH STAYING HERE IF PT GETS GI CONSULT. DR. VILLATORO TOLD ROMARIO Dolan RN/ACCOUNTS PAYABLE ASSISTANT THAT HE COULD ORDER GI CONSULT FOR PT. WRITTEN ORDER FOR GI CONSULT COMPLETED AND GI DOC NOTIFIED. PT AND PT FAMILY MADE AWARE OF ALL HAPPENINGS.
--- NOTE | 2019-03-12 16:34 | NUR ---
PT STATED DESIRE FOR PAIN MEDICAITON DUE TO NECK/HEAD PAIN. NURSE EDUCATED PT THAT OPIODS CAUSE CONSTIPATION AND WE COULD TRY WARM BLANKET AROUND NECK. PT AGREEABLE. WARM BLANKET GIVEN TO PT. PT STATED SHE WOULD TRY BLANKET BUT DID NOT THINK IT WOULD HELP AND STILL WOULD WANT FENTANYL. NURSE TOLD PT TO LET HER KNOW, BUT TO GIVE WARM BLANKET A CHANCE TO RELIEVE PAIN. PT NODDED HEAD UP AND DOWN. VISITORS X2 AT BEDSIDE.
--- NOTE | 2019-03-12 16:44 | NUR ---
FER HASSAN GIVEN REPORT. FER HASSAN TO ASSUME PT CARE INPATIENT NURSE. FER HASSAN STATED THERE WOULD BE A WAIT THEY WERE MOVING BEDS. PT AND PT FAMILY MADE AWARE OF WAIT FOR INPATIENT ROOM. PT FAMILY STATED UNDERSTANDING.
--- NOTE | 2019-03-12 17:01 | NUR ---
GI DOC, DR. SHIRLEY, CALLED THIS NURSE. NURSE INFORMED DR ABOUT REASON FOR CONSULT. DR. SHIRLEY STATED HE WOULD SEE PT TOMORROW. ALSO ASKED FOR PT TO BE PUT BACK ON FLAGYL AND CIPRO WELL START MIRALAX 17 GM BID. PT AND PT FAMILY MADE AWARE OF PHONE CALL WITH DR. SHIRLEY.
--- NOTE | 2019-03-12 17:10 | NUR ---
DR. VILLATORO CONTACTED BY THIS NURSE. DR. VILLATORO STATED HE WANTED TO KEEP PT ON UNASYN BECAUSE PT FAILED ORAL CIPRO AT HOME. FER HASSAN (NURSE TO ASSUME PT CARE INPATIENT NURSE) MADE AWARE. PT AND PT FAMILY ALSO MADE AWARE.
[2019-03-12 17:50] VITALS: BP 110/67
[2019-03-12 18:35] VITALS: BP 128/73
--- NOTE | 2019-03-12 18:46 | NUR ---
PT ADMITTED TO UNIT WITH DIVERTICULITIS. PT C/O PAIN, TYLENOL GIVEN FOR PAIN . DOCTOR NOTIFIED OF PAIN AND PT REQUEST FOR MUSCLE RELAXER. PT RESTING IN ROOM. FALL RISK PRECAUTIONS IN PLACE. HOURLY ROUNDING COMPLETED. WILL CONTINUE TO MONITOR.
[2019-03-12 21:50] VITALS: BP 136/87
[2019-03-13 05:00] LABS: HEMATOCRIT 25.3 % (37.0-47.0); HEMOGLOBIN 8.1 gm/dL (12.0-15.0); MCHC 31.9 g/dL (28.0-37.0); MCV 72.1 fL (80.0-100.0); MPV 9.7 fl. (7.2-11.1); RBC 3.51 mil/uL (4.20-5.00); RDW-CV 19.6 % (10.5-14.5); WBC 4.7 thou/uL (4.0-11.0)
[2019-03-13 05:08] LABS: CALCIUM 8.5 mg/dL (8.5-10.1); CREATININE 1.2 mg/dL (0.6-1.3); MAGNESIUM 1.6 mg/dL (1.8-2.4); POTASSIUM 4.2 mmol/L (3.5-5.1)
--- NOTE | 2019-03-13 05:51 | NUR ---
PATIENT HAS SLEPT WELL THROUGHOUT THE NIGHT. VSS ON RA. NO C/O PAIN. MEDICATIONS GIVEN ORDERED. PATIENT IS UP SBA. DAUGHTER BEDSIDE. NEW IV INSERTED IN LEFT FOREARM-SL. IV ABT GIVEN WITHOUT ANY ADVERSE SIDE EFFECTS NOTED. PATIENT INSTRUCTED TO USE CALL LIGHT WHEN NEEDING ASSISTANCE. HOURLY ROUNDS MADE. WILL CONTINUE WITH PLAN OF CARE AND NURSING TO MONITOR.
[2019-03-13 08:00] VITALS: BP 118/69
[2019-03-13 09:33] LABS: INR 4.4; PROTIME 44.8 Seconds (9.20-11.50)
--- NOTE | 2019-03-13 10:06 | NUR ---
Pt is A&O. Resides at home with her . Pt stated that she was independent, up until 2 months ago when she was dx with CHF. Pt states that she continues to do what she can, but states that her picks up the slack, along with her children. Pt uses a walker for mobility. Pt has a cpap through [facility]. Hx of [facility]. No hx of SNF. Goal is home at dc, Pt open to HH at pa if needed. [facility] p:[phone] f:[phone]
[2019-03-13 16:00] VITALS: BP 92/62
--- NOTE | 2019-03-13 17:23 | NUR ---
SHIFT NOTE - FAMILY PRESENT AT BEDSIDE THIS SHIFT. PT ABLE TO TOLERATE ADVANCING DIET. DENIES ABD PAIN, NAUSEA. WILL CONTINUE TO MONITOR.
[2019-03-13 21:00] VITALS: BP 94/55
[2019-03-14] VITALS: BP 108/67
[2019-03-14 04:53] LABS: INR 3.8; PROTIME 38.4 Seconds (9.20-11.50)
--- NOTE | 2019-03-14 05:52 | NUR ---
PT REMAINED ALERT AND ORIENTED. MEDS GIVEN ORDERED. CHRONIC NECK PAIN MANAGED WITH FLEXERIL. PT DAUGHTER AT BEDSIDE REQUESTED NOT TO GIVE LASIX AND CARVEDILOL FOR LOW BLOOD PRESSURE AT 94/55. ELECTROLYTE REPLACEMENT IN PREGRESS. HOME CPAP APPLIED HS. WILL CONTINUE TO MONITOR.
[2019-03-14 08:02] VITALS: BP 107/61
[2019-03-14] MEDS ORDERED: ACIDOPHILUS1 EAC4 PO (08:14)
[2019-03-14] MEDS ORDERED: SENNA PLUS TAB1 EACH PO (08:14)
[2019-03-14] MEDS ORDERED: AUGMENTIN 500-1 EACH PO (08:14)
[2019-03-14] MEDS ORDERED: CYCLOBENZAPRINE10 MG PO (08:14)
[2019-03-14] MEDS ORDERED: MIRALAX17 GM PO (08:14)
[2019-03-14 08:29] LABS: CALCIUM 7.8 mg/dL (8.5-10.1); CREATININE 1.3 mg/dL (0.6-1.3); POTASSIUM 3.9 mmol/L (3.5-5.1)
[2019-03-14 14:55] VITALS: BP 107/61
--- NOTE | 2019-03-14 16:15 | NUR ---
DISCHARGE TO HOME. PATIENT EDUCATION/INSTRUCTIONS GIVEN W/ FAMILY MEMBERS PRESENT. PATIENT STATES VERBALLY OF UNDERSTANDING, COPY OF SCRIPTS/INSTRUCTIONS GIVEN TO PATIENT. PATIENT BELONGINGS GATHERED PER FAMILY MEMBERS, WITH FAMILY MEMBERS AT TIME OF DISCHARGE. EDUCATION ON YORDAN HOSE, ON BEFORE GETTING OOB AND REMOVE AT HS. TEDS APPLIED W/ NURSING ASST TO BLE. PATIENT STATES SHE DOESN'T FEEL SHE WILL BE ABLE TO APPLY TEDS AT HOME, FAMILY MEMBERS STATE THAT THEY WILL BE AVAILABLE TO ASST. PATIENT INSTRUCTED TO F/U WITH BAND TUMBLER WITH CONCERNS. IV CATH DISCONTINUED, CATH TIP INTACT, COTTON BALL/COBAN APPLIED TO SITE. PATIENT ESCORTED TO AWAITING VEHICLE PER WC W/ NURSING PRESENT. DENIES NURSING NEEDS AT TIME OF DISCHARGE. PATIENT PLEASANT AND COOPERATIVE, ALERT AND ORIENTED. ~TJRN
--- NOTE | 2019-03-15 10:39 | CON ---
[address] [address] CONSULTATION Name: VA ARTIS Room: [address]#: [id number] Admission: 03/11/19 Attend Phys: Robin Esparza Discharge: 03/14/19 Date of : 35 Report #: [id number] THIS REPORT FOR: //name// CC: Gabrielle Ron DO Samantha Barrera TYPE OF REPORT: Cardiology consultation. INDICATION: Heart failure. HISTORY OF PRESENT ILLNESS: The patient is a very pleasant 83-year-old white female with history of ischemic cardiomyopathy and previous coronary artery bypass grafting. She was admitted to the hospital with abdominal pain, nausea and dry heaves. The patient was ultimately found to have diverticulitis and placed on antibiotics for this. During this hospitalization, her heart failure has been relatively well controlled. She was moderately hyponatremic on admission. Her sodium levels have steadily improved throughout hospitalization. The patient reports her breathing being as good it has been in some time during this hospitalization. She is not having chest pain. She has chronic lower extremity edema that is not significantly worsened at this time. She is without specific cardiac complaint. NT-pro-BNP was moderately elevated. Her chest x-ray did not show any evidence of pulmonary vascular congestion. She has chronic cardiomegaly noted. She is without chest pain. PAST MEDICAL HISTORY: 1. Coronary artery disease. 2. Ischemic cardiomyopathy. 3. Previous coronary artery bypass grafting. 4. Hypertension. 5. Hyperlipidemia. 6. COPD. 7. Recently diagnosed diverticulitis. 8. History of DVT with pulmonary embolism. 9. Chronic anticoagulation for DVT with pulmonary embolism. 10. GERD. FAMILY HISTORY: Positive for coronary artery disease and CVA. SOCIAL HISTORY: The patient is . She does not smoke or drink alcohol. PHYSICAL EXAMINATION: VITAL SIGNS: Stable. Blood pressure 107/61 and pulse is 75 and regular. GENERAL: This is a pleasant elderly female who is in no distress. Mood and affect appropriate. HEENT: Extraocular muscles intact. Mucous membranes are moist. NECK: Shows [place] [address] CONSULTATION Name: RYANN ARTISASHLEY Tilley Room: [address]#: [id number] Admission: 03/11/19 Attend Phys: Robin Esparza Discharge: 03/14/19 Date of : 35 Report #: [id number] CHEST: Reveals clear lung rogers without wheezes or rales. CARDIAC: Reveals a regular rhythm. I do not appreciate gallop or murmur. ABDOMEN: Reveals normal bowel sounds. EXTREMITIES: Shows 1-2+ edema to the knees bilaterally. There is some purple discoloration of her feet. Pulses intact. SKIN: Dry. IMPRESSION AND RECOMMENDATIONS: 1. Chronic systolic heart failure, appears presently compensated. I am continuing her spironolactone at current dose. I would like to change her Lasix from 20 mg b.i.d. to 40 mg daily. I have made no other changes to her heart failure regimen. I have asked the nursing staff to place YORDAN hose for her lower extremity edema. 2. Coronary artery disease, presently stable. She is not having any symptoms to suggest angina. Continue risk factor modification. 3. Hypertension. Blood pressure adequately controlled on current heart failure regimen. 4. Hyperlipidemia. Continue atorvastatin 80 mg at bedtime. 5. History of deep venous thrombosis and pulmonary emboli. The patient is chronically anticoagulated with warfarin and having no bleeding problems. 6. Chronic anticoagulation. The patient tolerating anticoagulation without bleeding issues. At this point in time, the patient appears stable from a cardiac standpoint. We will arrange followup in the office with nurse practitioner in 1 week and myself in 6 weeks. <ELECTRONICALLY SIGNED> By: Ian Elena MD, FACC 03/15/19 1039 1118 0117Ian Elena MD, FACC /nt
== END 2019-03-14 16:15 | disposition home or self-care (01) | DRG 392 ==
LOC: M.ERS 16:54 → M.TBA-ER 18:55 → M.ORTHSURG 03-12 17:47
PROVIDERS: Family Medicine; Internal Medicine; Internal Medicine Gastroenterology; ADMIT Internal Medicine
DX: K57.32 Diverticulitis of large intestine without perforation or abscess without bleeding (principal); E87.1 Hypo-osmolality and hyponatremia; E44.0 Moderate protein-calorie malnutrition; D68.59 Other primary thrombophilia; I50.22 Chronic systolic (congestive) heart failure; I42.9 Cardiomyopathy, unspecified; I13.0 Hypertensive heart and chronic kidney disease with heart failure and stage 1 through stage 4 chronic kidney disease, or unspecified chronic kidney disease; K59.09 Other constipation; Z66 Do not resuscitate; E78.5 Hyperlipidemia, unspecified; I25.10 Atherosclerotic heart disease of native coronary artery without angina pectoris; J44.9 Chronic obstructive pulmonary disease, unspecified; Z96.642 Presence of left artificial hip joint; K21.9 Gastro-esophageal reflux disease without esophagitis; N18.3 Chronic kidney disease, stage 3 (moderate); M06.9 Rheumatoid arthritis, unspecified; I48.91 Unspecified atrial fibrillation; Z68.26 Body mass index [BMI] 26.0-26.9, adult; Z86.711 Personal history of pulmonary embolism; Z99.81 Dependence on supplemental oxygen; Z95.1 Presence of aortocoronary bypass graft; Z88.8 Allergy status to other drugs, medicaments and biological substances; Z86.718 Personal history of other venous thrombosis and embolism; Z79.01 Long term (current) use of anticoagulants; Z82.49 Family history of ischemic heart disease and other diseases of the circulatory system; Z82.3 Family history of stroke

== ENCOUNTER 2019-05-10 16:01 | Emergency (ER) | payer MEDICARE, OTHER | END 2019-05-10 17:57 | disposition home or self-care (01) | LOC: M.ERS 16:01 | DX: L29.9 Pruritus, unspecified (principal); T45.1X5A Adverse effect of antineoplastic and immunosuppressive drugs, initial encounter; J44.9 Chronic obstructive pulmonary disease, unspecified; I11.0 Hypertensive heart disease with heart failure; I50.20 Unspecified systolic (congestive) heart failure; I25.810 Atherosclerosis of coronary artery bypass graft(s) without angina pectoris; F17.210 Nicotine dependence, cigarettes, uncomplicated; M06.9 Rheumatoid arthritis, unspecified; Z96.642 Presence of left artificial hip joint; Z86.711 Personal history of pulmonary embolism; Z88.8 Allergy status to other drugs, medicaments and biological substances; Y92.89 Other specified places as the place of occurrence of the external cause ==

== ENCOUNTER → 2019-10-29 | Outpatient (CLI) | payer MEDICARE, OTHER ==
[~2019-10-29] MED LIST changes: +ACIDOPHILUS1 EAC4 PO; +AUGMENTIN 500-1 EACH PO; +CYCLOBENZAPRINE10 MG PO; +FLORASTOR250 MG PO; +HYDROCORTISONE3011 TOP; +HYDROXYZINE HCL25 M2 PO; +MIRALAX17 GM PO; +PREDNISONE 20 M20 MG PO; +SENNA PLUS TAB1 EACH PO
== END ==
LOC: M.CT 13:27
DX: R91.1 Solitary pulmonary nodule (principal); I25.10 Atherosclerotic heart disease of native coronary artery without angina pectoris; K44.9 Diaphragmatic hernia without obstruction or gangrene; J98.4 Other disorders of lung; J84.10 Pulmonary fibrosis, unspecified; J90 Pleural effusion, not elsewhere classified; K76.89 Other specified diseases of liver; I11.9 Hypertensive heart disease without heart failure

== ENCOUNTER → 2019-11-12 | Outpatient (CLI) | payer MEDICARE, OTHER ==
[~2019-11-12] MED LIST changes: +ELIQUIS2.5 MG PO; +RESTORIL30 MG PO
[2019-11-12 13:09] LABS: HEMOGLOBIN 8.4 gm/dL (12.0-15.0); RDW-CV 20.6 % (10.5-14.5)
[2019-11-12 13:11] LABS: HEMATOCRIT 26.2 % (37.0-47.0); MCH 21.6 pg (26.0-34.0); MCHC 32.2 g/dL (28.0-37.0); MPV 9.1 fl. (7.2-11.1); NUCLEATED RBCS 1 /100WBC; PLATELET COUNT* 273 thou/uL (150-400); RBC 3.91 mil/uL (4.20-5.00); WBC 7.9 thou/uL (4.0-11.0)
[2019-11-12 13:24] LABS: ALBUMIN 2.6 g/dL (3.4-5.0); CALCIUM 8.6 mg/dL (8.5-10.1); CREATININE 2.2 mg/dL (0.6-1.3); TOTAL BILIRUBIN 1.3 mg/dL (<0.1-1.0); TOTAL PROTEIN 7.3 g/dL (6.4-8.2)
[2019-11-12 13:37] LABS: ABSOLUTE BASOPHILS 0.1 thou/uL (0.0-0.2); ABSOLUTE EOSINOPHILS 0.2 thou/uL (0.0-0.7); ABSOLUTE LYMPHOCYTES 1.2 thou/uL (0.8-5.3); ABSOLUTE MONOCYTES 0.2 thou/uL (0.0-1.2); ABSOLUTE NEUTROPHILS 6.3 thou/uL (1.6-8.1); ANISOCYTOSIS 3+; MICROCYTES 2+; OVALOCYTES 2+; PLATELET ESTIMATE ADEQUATE; POLYCHROMASIA 1+; SCHISTOCYTES 1+; TARGET CELLS 2+
[2019-11-12 13:38] LABS: HYPOCHROMASIA 2+
== END ==
LOC: M.LAB 12:33
PROVIDERS: Internal Medicine Gastroenterology
DX: R19.4 Change in bowel habit (principal); R10.32 Left lower quadrant pain; D50.9 Iron deficiency anemia, unspecified; K57.92 Diverticulitis of intestine, part unspecified, without perforation or abscess without bleeding; I25.5 Ischemic cardiomyopathy; D50.0 Iron deficiency anemia secondary to blood loss (chronic)

== ENCOUNTER 2019-11-15 11:01 | Inpatient (IN) | payer MEDICARE, OTHER ==
[~2019-11-15] VITALS: Ht 152.4 cm; Wt 67.3 kg
[2019-11-15] VITALS (7 sets, daily range): BP systolic 79–109; BP diastolic 42–63
--- NOTE | ~2019-11-15 | D ---
[address] [address] DISCHARGE SUMMARY Name: ARTISVA Y Room: [address] IN .R.#: [id number] Admission: 11/15/19 Attend Phys: Ian Elena MD Discharge: 11/19/19 Date of : 35 Report #: [id number] THIS REPORT FOR: //name// cc: Gabrielle Ron Linda J. DO THIS REPORT FOR: //name// CC: Gabrielle Elena DATE OF SERVICE: 11/19/2019 DISCHARGE DIAGNOSES: 1. Atrial fibrillation with rapid ventricular response rate. 2. Coronary artery disease. 3. Ischemic cardiomyopathy. 4. Hypertension. 5. Hyperkalemia. 6. Acute renal failure secondary to acute tubular necrosis. 7. Chronic constipation with intermittent diarrhea. 8. Iron deficiency anemia. 9. Hyperlipidemia. PROCEDURES DURING HOSPITALIZATION: 1. Telemetry monitoring. 2. Iron infusion. 3. EGD. 4. Colonoscopy. HOSPITAL COURSE: The patient was admitted to the hospital with atrial fibrillation with a rapid ventricular response rate and worsening renal function, not responsive to outpatient therapy. The patient was noted to be possibly somewhat volume under loaded and received IV infusions as well as IV digoxin for rate control of her rapid rate atrial fibrillation. The patient had improvement gradually of her renal function during hospitalization. She had noted chronic constipation as well as intermittent diarrhea. During hospitalization, she underwent bowel prep and had an EGD and colonoscopy as outlined in the j2ee application developer's procedure report. She had several polyps removed. She had borderline or the beginnings of Hernandes's esophagitis noted. She was placed on medications per Gastroenterology. The patient had hyperkalemia at admission, felt to be due in part to her spironolactone, which was discontinued. At the time of discharge, she was stable. Creatinine on admission was 2.5. At the time of discharge, creatinine was 1.6. Atrial rates when she was admitted were in the 130s to 140s. At the time of discharge, [place] atrial [place] [address] DISCHARGE SUMMARY Name: VA ARTIS Room: [address] IN [facility].#: [id number] Admission: 11/15/19 Attend Phys: Ian Elena MD Discharge: 11/19/19 Date of : 35 Report #: [id number] the 90s. An echocardiogram obtained during this hospitalization showed normal left ventricular systolic function with an ejection fraction of 55-60%. There was severe left atrial and mild right atrial enlargement noted. There was cnpr-jg-plsuuwsk mitral insufficiency. DISCHARGE MEDICATIONS: At the time of discharge will include Protonix 40 mg daily, digoxin 0.25 mg daily, magnesium oxide 400 mg daily, furosemide 20 mg p.o. b.i.d., Florastor 250 mg daily, folic acid 1 mg daily, Prozac 30 mg daily, carvedilol 6.25 mg b.i.d., MiraLax 17 grams daily, temazepam 30 mg at bedtime p.r.n., hydroxyzine 25 mg every 8 hours p.r.n., Nitrostat sublingual p.r.n., metronidazole 500 mg t.i.d. for 2 weeks and ciprofloxacin 500 mg b.i.d. for 2 weeks. DISPOSITION: The patient to follow up with Cardiology in 1 month. By: 1446 1955Ian Elena MD, FACC /nt
--- NOTE | ~2019-11-15 | PROC ---
[address] [address] PROCEDURE REPORT Name: VA ARTIS Room: [address] IN M.R.#: [id number] Admission: 11/15/19 Attend Phys: Ian Elena MD Discharge: 11/19/19 Date of : 35 Report #: [id number] THIS REPORT FOR: //name// cc: Gabrielle Ron Linda J. DO ~ THIS REPORT FOR: //name// For GI report, please see the Provation report in Perceptive 7 content. By: 1239Medical Records Staff [facility] /GINGER
--- NOTE | ~2019-11-15 | CON ---
[address] [address] CONSULTATION Name: VA ARTIS Room: [address] IN .R.#: [id number] Admission: 11/15/19 Attend Phys: Ian Elena MD Discharge: Date of : 35 Report #: [id number] THIS REPORT FOR: //name// CC: Gabrielle Elena DATE OF SERVICE: 11/17/2019 HISTORY OF PRESENT ILLNESS: The patient is being seen in consultation at the request of Dr. Wei for consideration of treating her while she is in the hospital with intravenous iron. Today, the history is taken exclusively from the patient's daughter, who is in the room when I entered, but the daughter was very good dental assistant medical assistant. In addition, I did find evidence that the patient had been seen by my former partner, Dr. Ontiveros. He saw her in 2006 with a recent history of iron deficiency anemia and she was said to have been better with iron replacement, but at that time, it apparently was oral replacement. The patient has recently had problems with constipation intermittently for the past several months. She was treated with MiraLax b.i.d. for the past 1-1/2 weeks and has resulted in producing 3-4 stools each day. She has not had any gastrointestinal bleeding overtly. For the past 3 months, she has had some intermittent bloating and abdominal pain in the left side of her abdomen, but she has not had any overt gastrointestinal bleeding or vomiting. PAST MEDICAL HISTORY: Significant for rheumatoid arthritis that started at the age of 40, congestive heart failure, Hernandes's esophagus in approximately 2005 or 2006, acute myocardial infarction in 2006, biliary colic with gallstones, history of acute renal failure, diverticulitis, mitral regurgitation, rapid atrial fibrillation. FAMILY HISTORY: Negative for anyone with bleeding disorders and anemia. SOCIAL HISTORY: The patient smoked one-half to 1 pack of cigarettes a day, but she stopped approximately 10 years ago. She also used to drink 1 portion of tequila with mixture each night, but she has not had any for the last few weeks. REVIEW OF SYSTEMS: Unobtainable. PHYSICAL EXAMINATION: Reveals a frail lady in no acute distress. She is lying in the bed most of the time that I talked with the patient's daughter in nearby location in the room. The patient did not contribute to discussion. She appeared somnolent at times. She has mild pedal edema and no resting tachypnea. Posterior lung rogers were clear. She does not seem to have JVD. MEDICAL DATA: From 11/15/2019, I reviewed the history and physical by Dr. Elena. From that same day, reviewed the progress note by [place] [address] CONSULTATION Name: VA ARTIS Room: [address]#: [id number] Admission: 11/15/19 Attend Phys: Ian Elena MD Discharge: Date of : 35 Report #: [id number] LABORATORY DATA: During this hospitalization revealed a vitamin B12 level that was 1707 mcg/dL, folate 67.4. Ferritin 17, iron 13 with a TIBC of 369 resulting in percent saturation of 4. Hemoglobin of 8.4 on admission, hematocrit 26.2, MCV 67, RDW 20.6, platelet count 273,000, white blood cell count 7900. I reviewed the medications during this hospital stay and the patient has already received one dose of ferumoxytol 510 mg. There were no adverse reactions. I agree with administering intravenous iron, I told the daughter that the next dose would be due in approximately 1 week. She can see my partner, Dr. Griffin and receive this medication in his clinic. No other studies are needed at the present time, but especially since the patient is going to proceed with endoscopy studies by Dr. Wei. This will be useful given her past history of Hernandes's esophagus. By: [id number] Giron MD /breanne
[~2019-11-15 11:01] MED LIST changes: -ELIQUIS2.5 MG PO; -RESTORIL30 MG PO
[2019-11-15 12:12] LABS: HEMATOCRIT 25.2 % (37.0-47.0); MCH 20.9 pg (26.0-34.0); MCHC 31.6 g/dL (28.0-37.0); RBC 3.81 mil/uL (4.20-5.00); RDW-CV 21.4 % (10.5-14.5); WBC 6.1 thou/uL (4.0-11.0)
[2019-11-15 12:30] LABS: ALBUMIN 2.4 g/dL (3.4-5.0); CALCIUM 8.7 mg/dL (8.5-10.1); CREATININE 2.5 mg/dL (0.6-1.3); POTASSIUM 5.9 mmol/L (3.5-5.1); TOTAL BILIRUBIN 1.2 mg/dL (<0.1-1.0); TOTAL PROTEIN 6.7 g/dL (6.4-8.2)
--- NOTE | 2019-11-15 14:42 | EKG ---
[place] [address] ELECTROCARDIOGRAM REPORT Name: VA ARTIS Room: [address] ADM IN .R.#: [id number] Admission: 11/15/19 Attend Phys: Ian Elena MD Discharge: Date of : 35 Report #: [id number] THIS REPORT FOR: //name// [facility] Test Date: 2019-11-15 Test Time: 14:24:40 Pat Name: VA ARTIS Department: Room: [address] Gender: F Reading Interventionist: : 1935 Requested By: Ian Elena Order Number: [id number] Reading MD: Scout Zavala Measurements Intervals [place] Rate: 131 P: GA: QRS: 81 QRSD: 161 T: -31 QT: 347 QTc: 513 Interpretive Statements Atrial fibrillation Right bundle branch block Compared to ECG 03/11/2019 17:17:57 Sinus rhythm no longer present Electronically Signed On 11-15-2019 14:41:34 BOATHOUSE KEEPER by Scout Zavala [email or web address] <ELECTRONICALLY SIGNED> By: Scout Zavala MD, [facility] 11/15/19 1441 1424 1424 Scout Zavala MD, FAC /EPI
[2019-11-15] MEDS ORDERED: RESTORIL30 MG PO (17:14)
[2019-11-15] MEDS ORDERED: ELIQUIS2.5 MG PO (17:17)
[2019-11-16 03:58] VITALS: BP 107/69
[2019-11-16 08:00] VITALS: BP 106/54
[2019-11-16 08:11] LABS: HEMATOCRIT 26.4 % (37.0-47.0); HEMOGLOBIN 8.3 gm/dL (12.0-15.0); MCHC 31.5 g/dL (28.0-37.0); MCV 66.7 fL (80.0-100.0); MPV 8.3 fl. (7.2-11.1); RBC 3.97 mil/uL (4.20-5.00); RDW-CV 20.8 % (10.5-14.5); WBC 7.8 thou/uL (4.0-11.0)
[2019-11-16 08:30] LABS: ANION GAP 9 mmol/L (7-16); BUN 36 mg/dL (7-18); CALCIUM 7.9 mg/dL (8.5-10.1); CHLORIDE 102 mmol/L (98-107); CHOLESTEROL 77 mg/dL (<200); CO2 22 mmol/L (21-32); GLUCOSE 93 mg/dL (70-99); HDL CHOLESTEROL 21 mg/dL (>40); SODIUM 133 mmol/L (136-145); TC:HDL 3.7 Ratio (Not establshd)
[2019-11-16 08:37] LABS: POTASSIUM 4.7 mmol/L (3.5-5.1)
[2019-11-16 08:43] LABS: LDL CHOLESTEROL 46 mg/dL (<100); SERUM ASSESSMENT Clear; TRIGLYCERIDE 52 mg/dL (<150); VLDL 10 mg/dL (<40)
--- NOTE | 2019-11-16 10:40 | H ---
[address] [address] HISTORY AND PHYSICAL Name: VA ARTIS Treva Room: [address] IN [facility].#: [id number] Admission: 11/15/19 Attend Phys: Ian Elena MD Discharge: Date of : 35 Report #: [id number] THIS REPORT FOR: //name// CC: Gabrielle Ron DO Ian Elena CARDIOLOGY ADMISSION HISTORY AND PHYSICAL INDICATION: Atrial fibrillation with rapid ventricular response, anemia, acute on chronic renal failure, chronic constipation. HISTORY OF PRESENT ILLNESS: The patient is an 84-year-old white female with chronic atrial fibrillation. She is chronically anticoagulated and having no bleeding problems. Her atrial fibrillation rate is not well controlled. She is having palpitations and shortness of breath with this. She has a history of hypertension, presently her blood pressure is low. She has a history of iron-deficiency anemia for which she has received IV iron infusions in the past. She has a low hemoglobin of approximately 8, presently with an MCV of 66. She has renal insufficiency, which has been gradually worsening. Her creatinine is now 2.5. She has associated electrolyte abnormalities including hyponatremia and hyperkalemia. The patient reports not having had a solid bowel movement for 3 months. She has complained of ongoing and continuous abdominal pain with this. It has been recommended that she undergo EGD and colonoscopy. She is not having any chest pain. PAST MEDICAL HISTORY: 1. Coronary artery disease. 2. COPD. 3. Chronic heart failure. 4. Hypertension. 5. Ischemic cardiomyopathy. 6. Obstructive sleep apnea. 7. History of pulmonary embolism. 8. History of coronary artery bypass grafting. 9. Hypercholesterolemia. 10. Rheumatoid arthritis. 11. Sleep apnea. PAST SURGICAL HISTORY: Coronary [place] [address] HISTORY AND PHYSICAL Name: ARTISVA Room: [address]#: [id number] Admission: 11/15/19 Attend Phys: Ian Elena MD Discharge: Date of : 35 Report #: [id number] FAMILY HISTORY: Noncontributory. SOCIAL HISTORY: The patient smokes daily. She drinks alcohol occasionally. ALLERGIES: LISINOPRIL AND NIACIN. HOME MEDICATIONS: Allopurinol half a tablet daily, dose unknown; Eliquis 2.5 mg b.i.d., carvedilol 25 mg b.i.d., Cymbalta 30 mg daily, folic acid 1 mg daily, Lasix 40 mg q.a.m. and at noon, Atarax 25 mg t.i.d. as needed, Nitrostat p.r.n., omeprazole 40 mg daily, MiraLax 17 g daily, Zocor 80 mg nightly, Aldactone 25 mg daily and Restoril 30 mg nightly p.r.n. REVIEW OF SYSTEMS: Positive for generalized malaise and fatigue as well as weight gain of 10 pounds. She denies fever. She reports dyspnea on exertion and lower extremity swelling. She is not having orthopnea. She is not having chest pain. She reports a cough that is nonproductive. She reports abdominal bloating with change in bowel habits including constipation and diarrhea. She denies hematemesis or melena. She has lightheadedness and dizziness. Otherwise, 14-point review of systems is unremarkable. PHYSICAL EXAMINATION: VITAL SIGNS: Blood pressure 104/60, pulse is in the 120s and irregular. GENERAL: This is an elderly white female who is hard of hearing. She has no distress. HEENT: Head is normocephalic and atraumatic. Extraocular muscles intact. Mucous membranes are moist. NECK: Shows no obvious jugular venous distention. CHEST: Reveals diminished breath sounds throughout without wheezes or rales. CARDIOVASCULAR: Reveals an irregularly irregular rhythm that is tachycardic without gallop or murmur. ABDOMEN: Reveals positive bowel sounds. The abdomen is diffusely tender without rebound. EXTREMITIES: Shows no edema. SKIN: Warm and dry. LABORATORY DATA: A 12-lead EKG shows atrial fibrillation with a rapid ventricular response rate and right bundle branch block. Labs are reviewed. Sodium 131, potassium 5.9, chloride 98, bicarbonate 21, BUN 45, creatinine 2.5, serum glucose 122. NT-proBNP 18,654. White blood cell count 6.1, hemoglobin 8.0, MCV 66 and platelet count 281,000. Chest x-ray shows cardiomegaly with diffuse interstitial prominence consistent with chronic interstitial lung disease. IMPRESSION AND RECOMMENDATIONS: [address] [place] [address] HISTORY AND PHYSICAL Name: CHANDRAVA Y Room: [address] IN [facility]#: [id number] Admission: 11/15/19 Attend Phys: Ian Elena MD Discharge: Date of : 35 Report #: [id number] 1. Atrial fibrillation with rapid ventricular response rate. We will give digoxin bolus to control rate. We will give fluid bolus as she may be somewhat volume underloaded. Holding anticoagulation as she may require a GI procedure in the very near future. 2. Coronary artery disease, presently stable. She is not having angina. 3. History of ischemic cardiomyopathy, appears well compensated. Her NT-proBNP is elevated; however, this is in the setting of atrial fibrillation with rapid ventricular response rate. I am not sure how trustworthy this is. We will obtain echocardiogram on the patient is here. 4. Hypertension. Blood pressure presently low. We will adjust antihypertensive regimen. 5. Hyperkalemia. Discontinue spironolactone at this time. 6. Acute renal failure with chronic renal insufficiency. We will give IV fluid bolus and gently hydrate. Repeat labs in a.m. 7. Chronic constipation with intermittent diarrhea. GI consult ordered. 8. Iron-deficiency anemia. We will give iron infusion and follow. No need for transfusion at this point in time. Repeat CBC in a.m. 9. Hyperlipidemia. Continue simvastatin. <ELECTRONICALLY SIGNED> By: Ian Elena MD, FACC 11/16/19 1040 1746 1809Micvenus Elena MD, FACC /nt
[2019-11-16 10:56] VITALS: BP 97/45
--- NOTE | 2019-11-16 15:41 | 2DMMODE ---
[place] [address] 2 D/M-MODE ECHOCARDIOGRAM Name: VA ARTIS Room: [address] IN .R.#: [id number] Admission: 11/15/19 Attend Phys: Ian Elena, Discharge: Date of : 35 Date of Service: 11/16/19 1540 Report #: [id number] THIS REPORT FOR: //name// APPROVED REPORT Study performed: 11/16/2019 11:23:02 EXAM: Comprehensive 2D, Doppler, and color-flow Echocardiogram BSA: 1.58 HR: 119 bpm Other Information Study Quality: Good Indications Congestive Heart Failure Atrial Fibrillation CAD 2D Dimensions IVSd: 11.70 (7-11mm) LVOT Diam: 19.03 (18-24mm) LVDd: 46.25 mm PWd: 10.75 (7-11mm) Ascending Ao: 30.62 (22-36mm) LVDs: 37.43 (25-40mm) Aortic Root: 28.36 mm Volumes Left Atrial Volume (Systole) LA ESV Index: 73.30 mL/m2 Aortic Valve AoV Peak Damir.: 1.77 m/s AO Peak Gr.: 12.53 mmHg LVOT Max P.54 mmHg AO Mean Gr.: 6.95 mmHg LVOT Mean P.14 mmHg LVOT Max V: 0.80 m/s AO V2 VTI: 24.67 cm LVOT Mean V: 0.48 m/s DORIS (VTI): 1.63 cm2 LVOT V1 VTI: 14.17 cm Mitral Valve E/A Ratio: 6.23 MV Decel. Time: 138.82 ms MV E Max Damir.: 1.26 m/s MV PHT: 40[place]26 [place] [address] 2 D/M-MODE ECHOCARDIOGRAM Name: VA ARTIS Room: [address]#: [id number] Admission: 11/15/19 Attend Phys: Ian Elena, Discharge: Date of : 35 Date of Service: 11/16/19 1540 Report #: [id number] MVA (PHT): 5.46 cm2 TDI E/Lateral E': 11.45 E/Medial E': 12.60 Medial E' Damir.: 0.10 m/s Lateral E' Damir.: 0.11 m/s Pulmonary Valve PV Peak Damir.: 0.66 m/s PV Peak Gr.: 1.74 mmHg Tricuspid Valve RAP Estimate: 10.00 mmHg TR Peak Gr.: 32.16 mmHg RVSP: 42.16 mmHg PA Pressure: 42.16 mmHg Left Ventricle The left ventricle is normal size. There is normal LV segmental wall motion. There is normal left ventricular wall thickness. The left ventricular systolic function is normal. LVEF is 55-60%. This study is not technically sufficient to allow evaluation of the LV diastolic function due to atrial fibrillation. Right Ventricle Right ventricle is mildly dilated. The right ventricular systolic function is normal. Atria Left atrium is severely dilated. Interatrial septum not well visualized. Right atrium is moderately dilated. Aortic Valve The Aortic valve is sclerotic. No aortic regurgitation is present. There is no aortic valvular stenosis. Mitral Valve There is mitral annular calcification. Mild to moderate mitral regurgitation. No evidence of mitral valve stenosis. Tricuspid Valve The tricuspid valve is normal in structure. Moderate tricuspid regurgitation. No pulmonary hypertension. Pulmonic Valve The pulmonary valve is normal in structure. There is no pulmonic [place] [address] 2 D/M-MODE ECHOCARDIOGRAM Name: VA ARTIS Room: [address]#: [id number] Admission: 11/15/19 Attend Phys: Ian Elena, Discharge: Date of : 35 Date of Service: 11/16/19 1540 Report #: [id number] Great Vessels The aortic root is normal in size. IVC is not visualized. Pericardium There is no pericardial effusion. <Conclusion> The left ventricle is normal size. There is normal left ventricular wall thickness. The left ventricular systolic function is normal. LVEF is 55-60%. This study is not technically sufficient to allow evaluation of the LV diastolic function due to atrial fibrillation. Right ventricle is mildly dilated. Left atrium is severely dilated. Right atrium is moderately dilated. There is mitral annular calcification. Mild to moderate mitral regurgitation. Moderate tricuspid regurgitation. No pulmonary hypertension. <ELECTRONICALLY SIGNED> By: Ian Elena MD, FACC 11/16/19 1540 1540 1540 Ian Elena MD, FACC /INF
[2019-11-16 16:00] VITALS: BP 123/63
[2019-11-16 20:00] VITALS: BP 118/69
[2019-11-17] VITALS: BP 104/55
[2019-11-17 04:00] VITALS: BP 93/39
[2019-11-17 06:52] LABS: HEMATOCRIT 25.2 % (37.0-47.0); HEMOGLOBIN 7.9 gm/dL (12.0-15.0); MCHC 31.3 g/dL (28.0-37.0); MCV 66.9 fL (80.0-100.0); MPV 9.1 fl. (7.2-11.1); RBC 3.76 mil/uL (4.20-5.00); RDW-CV 21.3 % (10.5-14.5); WBC 10.1 thou/uL (4.0-11.0)
[2019-11-17 07:25] LABS: CREATININE 1.6 mg/dL (0.6-1.3); MAGNESIUM 1.2 mg/dL (1.8-2.4); POTASSIUM 4.1 mmol/L (3.5-5.1); TOTAL BILIRUBIN 1.1 mg/dL (<0.1-1.0); TOTAL PROTEIN 6.1 g/dL (6.4-8.2)
[2019-11-17 07:58] VITALS: BP 105/58
[2019-11-17 08:00] VITALS: BP 105/58
[2019-11-17 11:40] VITALS: BP 103/42
[2019-11-17 16:28] VITALS: BP 109/73; BP 131/87; BP 138/90; BP 140/73
[2019-11-18 00:58] VITALS: BP 100/48
[2019-11-18 04:00] VITALS: BP 131/79
[2019-11-18 08:00] VITALS: BP 134/68
[2019-11-18 08:57] LABS: HEMOGLOBIN 9.1 gm/dL (12.0-15.0); WBC 7.7 thou/uL (4.0-11.0)
[2019-11-18 08:59] LABS: HEMATOCRIT 28.4 % (37.0-47.0); MCH 21.8 pg (26.0-34.0); MCV 68.2 fL (80.0-100.0); MPV 8.4 fl. (7.2-11.1); RBC 4.17 mil/uL (4.20-5.00); RDW-CV 21.7 % (10.5-14.5)
[2019-11-18 12:00] VITALS: BP 118/67
[2019-11-18 16:00] VITALS: BP 98/57
[2019-11-18 20:00] VITALS: BP 135/86
[2019-11-19] VITALS: BP 124/74
[2019-11-19 04:00] VITALS: BP 105/56
[2019-11-19 08:00] VITALS: BP 108/63
[2019-11-19 10:19] VITALS: BP 105/56
[2019-11-19] MEDS ORDERED: LANOXIN 0.25M0.25 M1 PO (14:32)
[2019-11-19] MEDS ORDERED: COREG6.25 MG PO (14:34)
[2019-11-19] MEDS ORDERED: CIPRO500 MG PO (14:38)
[2019-11-19] MEDS ORDERED: NITROGLYCERIN0.4 MG SUBLING (14:38)
[2019-11-19] MEDS ORDERED: PANTOPRAZOLE SO40 M1 PO (14:38)
[2019-11-19] MEDS ORDERED: METRONIDAZOLE500 M4 PO (14:38)
[2019-11-19] MEDS ORDERED: CYMBALTA30 MG PO (14:40)
[2019-11-19] MEDS ORDERED: DALMANE30 MG PO (14:40)
[2019-11-19] MEDS ORDERED: HYDROXYZINE HCL25 M2 PO (14:40)
[2019-11-19 15:11] VITALS: BP 105/56
--- NOTE | 2019-11-23 09:07 | PATH ---
[address] [address] PATHOLOGY RPT PROCEDURE Name: JACKIE ARTIS Treva Room: [address] IN .R.#: [id number] Admission: 11/15/19 Date of : 35 Discharge: 11/19/19 Report #: [id number] Path Case #: [id number] [facility] Accession Number: [id number] . 01 Material submitted: . PART A: stomach - ANTRAL BIOPSY PART B: esophagus - DISTAL ESOPHAGEAL BIOPSY. Modifiers: distal PART C: cecum - CECAL POLYP X2 PART D: colon - ASCENDING COLON POLYP X2. Modifiers: ascending PART E: colon - TRANSVERSE COLON POLYP X5. Modifiers: transverse PART F: sigmoid colon - SIGMOID POLYP X3 . 01 Clinical history: . A. For H. pylori gastritis. B. R/O Hernandes's. . 02 Diagnosis: A. Antral biopsy: - Mild chronic and active antral gastritis suggesting reactive gastropathy (chemical gastritis), negative for H. pylori organisms, granulomas and dysplasia. . B. 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 . C. Cecal polyp x2: - Multiple fragments of tubular adenomas, negative for high-grade dysplasia. . D. Ascending colon polyps x2: - Multiple fragments of tubular adenomas, negative for high-grade dysplasia. . E. Transverse colon polyp x5: - Multiple fragments of tubular adenomas, negative for high-grade dysplasia. . F. Sigmoid colon polyps x3: - Multiple fragments of tubular adenoma(s) and 1 fragment of hyperplastic polyp, negative for high-grade dysplasia. . (OMAR:leonard; 11/22/2019) MBR 11/22/2019 1321 Local . 02 Comment: Special stain on A: [place] [address] PATHOLOGY RPT PROCEDURE Name: JACKIE ARTIS Room: [address]#: [id number] Admission: 11/15/19 Date of : 35 Discharge: 11/19/19 Report #: [id number] Path Case #: [id number] . 02 Electronically signed: . Alin Crisostomo MD, Pathologist NPI- [id number] . 01 Gross description: . A. Received in formalin labeled "Jackie Artis, antral biopsy for H. pylori gastritis" is a 0.9 x 0.3 x 0.1 cm aggregate of mcneil-brown soft tissue fragments. The specimen is submitted entirely in A1. . B. Received in formalin labeled "Jackie Artis, distal esophageal biopsy rule out Hernandes's" is a 0.5 x 0.4 x 0.1 cm aggregate of mcneil-brown soft tissue fragments. The specimen is submitted entirely in B1. . C. Received in formalin labeled "Jackie Artis, cecal polyp X2" is a 1.8 x 0.9 x 0.1 cm aggregate of mcneil-brown soft tissue fragments. The specimen is submitted entirely in C1. . D. Received in formalin labeled "Jackie Artis, ascending colon polyp X2" is a 1.3 x 0.4 x 0.1 cm aggregate of mcneil-brown soft tissue fragments. The specimen is submitted entirely in D1. . E. Received in formalin labeled "Jackie Artis, transverse colon polyp X5" is a 1.6 x 0.5 x 0.2 cm aggregate of mcneil-brown soft tissue fragments. The specimen is submitted entirely in E1. . F. Received in formalin labeled "Jackie Artis, sigmoid colon polyp X3" is a 0.5 x 0.3 x 0.1 cm aggregate of mcneil-brown soft tissue fragments. The specimen is submitted entirely in F1. ([facility] [place] 11/20/2019[place] [facility] 11/20/[address] [place] [address] . Pathologist provided ICD-10: K29.50, K20.9, K22.70, D12.0, D12.2, D12.3, D12.5, K63.5 . 02 CPT . 028734, 170449, 298800, 032479, 845561, 437465, Q77642 Specimen Comment: A courtesy copy of this report has been sent to [phone] Specimen Comment: [phone], Specimen Comment: Report sent to , and Specimen Comment: A duplicate report has been generated due to demographic updates. Performed at: [address] [place] [address] [address], Katheryn Adkins, [place]IC[place] [id number] MD Benito Avitia MD Phone: [phone] Performed at: 02 [facility] [address] [facility], [place], [place] [id number] [facility] [address] [place] [address] PATHOLOGY RPT PROCEDURE Name: JACKIE ARTIS Room: [address]#: [id number] Admission: 11/15/19 Date of : 35 Discharge: 11/19/19 Report #: [id number] Path Case #: [id number] MD Alin Crisostomo MD Phone: [phone]
== END 2019-11-19 17:23 | disposition home or self-care (01) | DRG 393 ==
LOC: M.ICU 11:01 → M.2W 11:01
PROVIDERS: ADMIT Internal Medicine Cardiovascular Disease
PROC: 5A09357 Assistance with Respiratory Ventilation, Less than 24 Consecutive Hours, Continuous Positive Airway Pressure (ICD-10-PCS; principal; 2019-11-15)
PROC: 5A09357 Assistance with Respiratory Ventilation, Less than 24 Consecutive Hours, Continuous Positive Airway Pressure (ICD-10-PCS; 2019-11-16)
PROC: 5A09357 Assistance with Respiratory Ventilation, Less than 24 Consecutive Hours, Continuous Positive Airway Pressure (ICD-10-PCS; 2019-11-17)
PROC: 30233N1 Transfusion of Nonautologous Red Blood Cells into Peripheral Vein, Percutaneous Approach (ICD-10-PCS; 2019-11-17)
PROC: 5A09357 Assistance with Respiratory Ventilation, Less than 24 Consecutive Hours, Continuous Positive Airway Pressure (ICD-10-PCS; 2019-11-18)
PROC: 0DBK8ZZ Excision of Ascending Colon, Via Natural or Artificial Opening Endoscopic (ICD-10-PCS; 2019-11-19)
PROC: 0DB38ZX Excision of Lower Esophagus, Via Natural or Artificial Opening Endoscopic, Diagnostic (ICD-10-PCS; 2019-11-19)
PROC: 5A09357 Assistance with Respiratory Ventilation, Less than 24 Consecutive Hours, Continuous Positive Airway Pressure (ICD-10-PCS; 2019-11-19)
PROC: 0DBL8ZZ Excision of Transverse Colon, Via Natural or Artificial Opening Endoscopic (ICD-10-PCS; 2019-11-19)
PROC: 0DBH8ZZ Excision of Cecum, Via Natural or Artificial Opening Endoscopic (ICD-10-PCS; 2019-11-19)
PROC: 0DBN8ZZ Excision of Sigmoid Colon, Via Natural or Artificial Opening Endoscopic (ICD-10-PCS; 2019-11-19)
PROC: 0DB78ZX Excision of Stomach, Pylorus, Via Natural or Artificial Opening Endoscopic, Diagnostic (ICD-10-PCS; 2019-11-19)
DX: D12.2 Benign neoplasm of ascending colon (principal); N17.0 Acute kidney failure with tubular necrosis; I50.23 Acute on chronic systolic (congestive) heart failure; I48.20 Chronic atrial fibrillation, unspecified; E44.0 Moderate protein-calorie malnutrition; E87.1 Hypo-osmolality and hyponatremia; I13.0 Hypertensive heart and chronic kidney disease with heart failure and stage 1 through stage 4 chronic kidney disease, or unspecified chronic kidney disease; I25.10 Atherosclerotic heart disease of native coronary artery without angina pectoris; D12.0 Benign neoplasm of cecum; D12.5 Benign neoplasm of sigmoid colon; D12.3 Benign neoplasm of transverse colon; K64.9 Unspecified hemorrhoids; K57.30 Diverticulosis of large intestine without perforation or abscess without bleeding; K44.9 Diaphragmatic hernia without obstruction or gangrene; K29.70 Gastritis, unspecified, without bleeding; R14.0 Abdominal distension (gaseous); M06.9 Rheumatoid arthritis, unspecified; I34.0 Nonrheumatic mitral (valve) insufficiency; G47.33 Obstructive sleep apnea (adult) (pediatric); E78.00 Pure hypercholesterolemia, unspecified; I25.5 Ischemic cardiomyopathy; E87.5 Hyperkalemia; D50.9 Iron deficiency anemia, unspecified; E78.5 Hyperlipidemia, unspecified; K22.70 Barrett's esophagus without dysplasia; K59.09 Other constipation; G89.29 Other chronic pain; J44.9 Chronic obstructive pulmonary disease, unspecified; N18.9 Chronic kidney disease, unspecified; Z74.01 Bed confinement status; Z68.29 Body mass index [BMI] 29.0-29.9, adult; Z87.891 Personal history of nicotine dependence; Z79.899 Other long term (current) drug therapy; Z79.01 Long term (current) use of anticoagulants; I25.2 Old myocardial infarction; Z86.711 Personal history of pulmonary embolism; Z95.1 Presence of aortocoronary bypass graft

== ENCOUNTER → 2019-11-25 | Outpatient (CLI) | payer MEDICARE, OTHER ==
[~2019-11-25] MED LIST changes: +CIPRO500 MG PO; +COREG6.25 MG PO; +DALMANE30 MG PO; +ELIQUIS2.5 MG PO; +LANOXIN 0.25M0.25 M1 PO; +METRONIDAZOLE500 M4 PO; +PANTOPRAZOLE SO40 M1 PO; +RESTORIL30 MG PO
[2019-11-25 12:10] VITALS: BP 122/74
[2019-11-25 13:05] VITALS: BP 118/70
== END ==
LOC: M.INFUS 10:30
DX: D50.0 Iron deficiency anemia secondary to blood loss (chronic) (principal); I25.5 Ischemic cardiomyopathy; I50.9 Heart failure, unspecified; E87.1 Hypo-osmolality and hyponatremia

== ENCOUNTER → 2020-05-19 | Outpatient (CLI) | payer MEDICARE, OTHER ==
[2020-05-19 13:49] LABS: ABSOLUTE BASOPHILS 0.1 thou/uL (0.0-0.2); ABSOLUTE EOSINOPHILS 0.1 thou/uL (0.0-0.7); ABSOLUTE LYMPHOCYTES 0.7 thou/uL (0.8-5.3); ABSOLUTE MONOCYTES 0.7 thou/uL (0.0-1.2); ABSOLUTE NEUTROPHILS 6.9 thou/uL (1.6-8.1); HEMATOCRIT 37.2 % (37.0-47.0); HEMOGLOBIN 12.7 gm/dL (12.0-15.0); LYMPHOCYTES 7.9 %; MCH 30.4 pg (26.0-34.0); MCV 89.4 fL (80.0-100.0); MPV 10.1 fl. (7.2-11.1); NUCLEATED RBCS 0 /100WBC; PLATELET COUNT* 155 thou/uL (150-400); POLYS 82.1 %; RBC 4.16 mil/uL (4.20-5.00); RDW-CV 14.9 % (10.5-14.5); WBC 8.4 thou/uL (4.0-11.0)
[2020-05-19 13:59] LABS: INR 1.9; PROTIME 18.7 Seconds (9.20-11.50)
[2020-05-19 14:41] LABS: ALBUMIN 2.6 g/dL (3.4-5.0); CALCIUM 8.8 mg/dL (8.5-10.1); CREATININE 1.1 mg/dL (0.6-1.3); POTASSIUM 3.4 mmol/L (3.5-5.1); TOTAL BILIRUBIN 1.4 mg/dL (<0.1-1.0); TOTAL PROTEIN 6.3 g/dL (6.4-8.2)
== END ==
LOC: M.LAB 13:23
PROVIDERS: ATTEND Registered Nurse
DX: I50.22 Chronic systolic (congestive) heart failure (principal); I48.91 Unspecified atrial fibrillation

== ENCOUNTER → 2020-05-26 | Outpatient (CLI) | payer MEDICARE, OTHER ==
[2020-05-26 13:27] LABS: CALCIUM 8.5 mg/dL (8.5-10.1); CREATININE 1.1 mg/dL (0.6-1.3); POTASSIUM 3.1 mmol/L (3.5-5.1)
== END ==
LOC: M.LAB 12:51
PROVIDERS: ATTEND Registered Nurse
DX: I50.9 Heart failure, unspecified (principal)

== ENCOUNTER 2020-05-29 13:44 | Inpatient (IN) | payer MEDICARE, OTHER ==
[2020-05-29] VITALS (8 sets, daily range): BP systolic 113–152; BP diastolic 74–91
[~2020-05-29] VITALS: Ht 152.4 cm; Wt 65.8 kg
[2020-05-29 14:21] LABS: HEMATOCRIT 37.8 % (37.0-47.0); HEMOGLOBIN 12.9 gm/dL (12.0-15.0); MCH 30.3 pg (26.0-34.0); MCHC 34.2 g/dL (28.0-37.0); MCV 88.6 fL (80.0-100.0); MPV 10.5 fl. (7.2-11.1); NUCLEATED RBCS 0 /100WBC; PLATELET COUNT* 147 thou/uL (150-400); RBC 4.27 mil/uL (4.20-5.00); RDW-CV 14.6 % (10.5-14.5); WBC 8.1 thou/uL (4.0-11.0)
[2020-05-29 15:02] LABS: CALCIUM 8.3 mg/dL (8.5-10.1); CREATININE 1.1 mg/dL (0.6-1.3); POTASSIUM 3.6 mmol/L (3.5-5.1)
[2020-05-29 15:13] LABS: ALBUMIN 2.5 g/dL (3.4-5.0); TOTAL BILIRUBIN 1.6 mg/dL (<0.1-1.0); TOTAL PROTEIN 6.5 g/dL (6.4-8.2)
[2020-05-29 16:37] LABS: ABSOLUTE LYMPHOCYTES 0.6 thou/uL (0.8-5.3); ABSOLUTE MONOCYTES 0.6 thou/uL (0.0-1.2); ABSOLUTE NEUTROPHILS 6.8 thou/uL (1.6-8.1)
[2020-05-29 16:39] LABS: LARGE PLATELETS RARE; PLATELET ESTIMATE ADEQUATE
--- NOTE | 2020-05-29 17:01 | EKG ---
[place] [address] ELECTROCARDIOGRAM REPORT Name: VA ARTIS Room: [place] [address] ADM IN [facility]#: [id number] Admission: 05/29/20 Attend Phys: William Pool, Discharge: Date of : 35 Date of Service: 05/29/20 1352 Report #: [id number] THIS REPORT FOR: //name// [facility] ED Test Date: 2020-05-29 Test Time: 13:52:37 Pat Name: VA ARTIS Department: Room: [facility] Gender: F Roofer Helper: DARI : 1935 Requested By: Tiago Triplett Order Number: [id number] MD: Scout Zavala Measurements Intervals [place] Rate: 88 P: HI: QRS: 70 QRSD: 167 T: 214 QT: 385 QTc: 466 Interpretive Statements Atrial fibrillation Ventricular premature complex RBBB Compared to ECG 11/15/2019 14:24:40 Ventricular premature complex(es) now present rate has decreased Electronically Signed On 05-29-2020 17:01:15 CDT by Scout Zavala [email or web address] <ELECTRONICALLY SIGNED> By: Scout Zavala MD, [facility] 05/29/20 1701 1352 1352 Scout Zavala MD, [facility] /EPI
[2020-05-29 18:53] LABS: CALCIUM 8.4 mg/dL (8.5-10.1); CREATININE 1.1 mg/dL (0.6-1.3); POTASSIUM 3.5 mmol/L (3.5-5.1)
[2020-05-29 19:49] LABS: URINE BILIRUBIN NEGATIVE (Negative); URINE BLOOD TRACE (Negative); URINE CLARITY CLEAR; URINE COLOR YELLOW; URINE GLUCOSE-RANDOM NEGATIVE (Negative); URINE KETONES NEGATIVE (Negative); URINE LEUKOCYTES-REFLEX NEGATIVE (Negative); URINE NITRITE-REFLEX NEGATIVE (Negative); URINE PROTEIN NEGATIVE (Negative)
[2020-05-29 19:52] LABS: URINE POTASSIUM-RANDOM 50.6 mmol/L
[2020-05-29 21:27] LABS: CALCIUM 8.6 mg/dL (8.5-10.1); CREATININE 0.9 mg/dL (0.6-1.3); POTASSIUM 3.5 mmol/L (3.5-5.1)
[2020-05-30] VITALS (22 sets, daily range): BP systolic 112–146; BP diastolic 68–97
[2020-05-30 01:37] LABS: ABSOLUTE BASOPHILS 0.1 thou/uL (0.0-0.2); ABSOLUTE LYMPHOCYTES 0.9 thou/uL (0.8-5.3); ABSOLUTE MONOCYTES 0.5 thou/uL (0.0-1.2); ABSOLUTE NEUTROPHILS 6.2 thou/uL (1.6-8.1); BASOPHILS 0.8 %; EOSINOPHILS 0.6 %; HEMATOCRIT 37.9 % (37.0-47.0); MCH 30.5 pg (26.0-34.0); MCHC 34.4 g/dL (28.0-37.0); MCV 88.5 fL (80.0-100.0); MONOCYTES 5.9 %; MPV 10.3 fl. (7.2-11.1); NUCLEATED RBCS 0 /100WBC; PLATELET COUNT* 149 thou/uL (150-400); POLYS 80.7 %; RBC 4.28 mil/uL (4.20-5.00); RDW-CV 14.5 % (10.5-14.5); WBC 7.7 thou/uL (4.0-11.0)
[2020-05-30 01:43] LABS: CALCIUM 8.3 mg/dL (8.5-10.1); CREATININE 1.1 mg/dL (0.6-1.3); POTASSIUM 3.4 mmol/L (3.5-5.1)
[2020-05-30 06:36] LABS: CALCIUM 8.8 mg/dL (8.5-10.1); POTASSIUM 3.4 mmol/L (3.5-5.1)
[2020-05-30 06:39] LABS: URIC ACID* 8.1 mg/dL (2.6-7.2)
[2020-05-30 12:34] LABS: CALCIUM 8.3 mg/dL (8.5-10.1); POTASSIUM 3.7 mmol/L (3.5-5.1)
[2020-05-30] MEDS ORDERED: ZAROXOLYN 5MG TA5 MG PO (14:15)
[2020-05-30 17:52] LABS: CALCIUM 8.7 mg/dL (8.5-10.1); CREATININE 1.1 mg/dL (0.6-1.3); POTASSIUM 3.8 mmol/L (3.5-5.1)
[2020-05-31] VITALS (10 sets, daily range): BP systolic 97–158; BP diastolic 67–89
[2020-05-31 00:54] LABS: CALCIUM 8.6 mg/dL (8.5-10.1); POTASSIUM 3.9 mmol/L (3.5-5.1)
[2020-05-31 07:10] LABS: ABSOLUTE EOSINOPHILS 0.1 thou/uL (0.0-0.7); ABSOLUTE LYMPHOCYTES 0.8 thou/uL (0.8-5.3); ABSOLUTE MONOCYTES 0.5 thou/uL (0.0-1.2); ABSOLUTE NEUTROPHILS 4.8 thou/uL (1.6-8.1); BASOPHILS 0.7 %; HEMATOCRIT 37.6 % (37.0-47.0); HEMOGLOBIN 12.8 gm/dL (12.0-15.0); LYMPHOCYTES 13.2 %; MCH 30.1 pg (26.0-34.0); MCV 88.7 fL (80.0-100.0); MONOCYTES 8.1 %; MPV 10.3 fl. (7.2-11.1); NUCLEATED RBCS 0 /100WBC; PLATELET COUNT* 157 thou/uL (150-400); RBC 4.24 mil/uL (4.20-5.00); RDW-CV 14.7 % (10.5-14.5); WBC 6.3 thou/uL (4.0-11.0)
[2020-05-31 07:17] LABS: CALCIUM 8.2 mg/dL (8.5-10.1); CREATININE 0.8 mg/dL (0.6-1.3); POTASSIUM 4.8 mmol/L (3.5-5.1)
[2020-05-31 12:28] LABS: CALCIUM 8.6 mg/dL (8.5-10.1); CREATININE 0.9 mg/dL (0.6-1.3)
--- NOTE | 2020-05-31 16:35 | 2DMMODE ---
[place] [address] 2 D/M-MODE ECHOCARDIOGRAM Name: VA ARTIS Treva Room: [address] ADM IN [facility]#: [id number] Admission: 05/29/20 Attend Phys: William Pool, Discharge: Date of : 35 Date of Service: 05/31/20 1635 Report #: [id number] THIS REPORT FOR: cc: Gabrielle Ron,Scout Tristan MD [facility] ~ APPROVED REPORT Study performed: 05/31/2020 10:18:16 EXAM: Comprehensive 2D, Doppler, and color-flow Echocardiogram Patient Location: In-Patient Room #: 007 Status: routine BSA: 1.55 HR: 89 bpm BP: 143/75 mmHg Rhythm: NSR Other Information Study Quality: Good Indications Congestive Heart Failure 2D Dimensions IVSd: 9.64 (7-11mm) LVOT Diam: 19.10 (18-24mm) LVDd: 56.64 mm PWd: 9.00 (7-11mm) Ascending Ao: 29.90 (22-36mm) LVDs: 43.84 (25-40mm) Aortic Root: 28.52 mm Volumes Left Atrial Volume (Systole) LA ESV Index: 68.80 mL/m2 Aortic Valve AoV Peak Damir.: 1.73 m/s AO Peak Gr.: 11.91 mmHg LVOT Max P.33 mmHg AO Mean Gr.: 6.43 mmHg LVOT Mean P.08 mmHg LVOT Max V: 0.76 m/s AO V2 VTI: 23.30 cm LVOT Mean V: 0.48 m/s DORIS (VTI): 1.23 cm2 LVOT V1 VTI: 9[place]97 [place] [address] 2 D/M-MODE ECHOCARDIOGRAM Name: VA ARTIS Room: [address] IN [facility]#: [id number] Admission: 05/29/20 Attend Phys: William Pool, Discharge: Date of : 35 Date of Service: 05/31/20 1635 Report #: [id number] Mitral Valve MV Decel. Time: 154.21 ms MV PHT: 44.72 ms MVA (PHT): 4.92 cm2 TDI Medial E' Damir.: 0.08 m/s Lateral E' Damir.: 0.07 m/s Pulmonary Valve PV Peak Damir.: 0.67 m/s PV Peak Gr.: 1.81 mmHg Tricuspid Valve RAP Estimate: 5.00 mmHg TR Peak Gr.: 16.90 mmHg RVSP: 21.00 mmHg PA Pressure: 21.00 mmHg Left Ventricle Left ventricle is mildly dilated. There is global hypokinesis of the left ventricle. There is normal left ventricular wall thickness. Left ventricular systolic function is severely decreased. LVEF is 25-30%. This study is not technically sufficient to allow evaluation of the LV diastolic function due to atrial fibrillation. Right Ventricle Right ventricle is dilated. Right ventricle is mildly hypokinetic. Atria Left atrium is severely dilated. Right atrium is dilated. Aortic Valve Moderate aortic valve sclerosis. Trace aortic regurgitation. There is no aortic valvular stenosis. Mitral Valve The mitral valve is normal in structure. Mild mitral regurgitation. No evidence of mitral valve stenosis. Tricuspid Valve The tricuspid valve is normal in structure. Mild tricuspid regurgitation. No pulmonary hypertension. Pulmonic Valve The pulmonary valve is normal in structure. There is no pulmonic [place] [address] 2 D/M-MODE ECHOCARDIOGRAM Name: VA ARTIS Room: [address]#: [id number] Admission: 05/29/20 Attend Phys: William Pool, Discharge: Date of : 35 Date of Service: 05/31/20 1635 Report #: [id number] Great Vessels The aortic root is normal in size. IVC is normal in size and collapses >50% with inspiration. Pericardium There is no pericardial effusion. Left pleural effusion. <Conclusion> LVEF is 25-30%. Right ventricle is dilated. Left atrium is severely dilated. Right atrium is dilated. Moderate aortic valve sclerosis. Mild mitral regurgitation. Left pleural effusion. <ELECTRONICALLY SIGNED> By: Scout Zavala MD, [facility] 05/31/20 1635 1635 1635 Scout Zavala MD, FACC /INF
[2020-05-31 17:52] LABS: CALCIUM 8.5 mg/dL (8.5-10.1); POTASSIUM 3.9 mmol/L (3.5-5.1)
[2020-06-01 04:00] VITALS: BP 159/93
[2020-06-01 06:54] LABS: ABSOLUTE LYMPHOCYTES 0.7 thou/uL (0.8-5.3); ABSOLUTE MONOCYTES 0.4 thou/uL (0.0-1.2); ABSOLUTE NEUTROPHILS 4.3 thou/uL (1.6-8.1); BASOPHILS 0.7 %; EOSINOPHILS 0.4 %; HEMATOCRIT 39.1 % (37.0-47.0); HEMOGLOBIN 13.4 gm/dL (12.0-15.0); LYMPHOCYTES 13.1 %; MCH 30.3 pg (26.0-34.0); MCHC 34.2 g/dL (28.0-37.0); MCV 88.5 fL (80.0-100.0); MONOCYTES 7.5 %; MPV 9.9 fl. (7.2-11.1); NUCLEATED RBCS 0 /100WBC; PLATELET COUNT* 180 thou/uL (150-400); POLYS 78.3 %; RBC 4.42 mil/uL (4.20-5.00); RDW-CV 14.7 % (10.5-14.5); WBC 5.4 thou/uL (4.0-11.0)
[2020-06-01 07:13] LABS: ALBUMIN 2.4 g/dL (3.4-5.0); CALCIUM 8.4 mg/dL (8.5-10.1); CREATININE 0.9 mg/dL (0.6-1.3); POTASSIUM 3.8 mmol/L (3.5-5.1); TOTAL BILIRUBIN 1.9 mg/dL (<0.1-1.0); TOTAL PROTEIN 6.3 g/dL (6.4-8.2)
[2020-06-01 08:00] VITALS: BP 137/77
[2020-06-01 12:00] VITALS: BP 139/79
[2020-06-01 16:00] VITALS: BP 136/90
[2020-06-01 20:20] VITALS: BP 141/88
[2020-06-01 20:30] VITALS: BP 141/88
[2020-06-02] VITALS: BP 119/86
[2020-06-02 04:00] VITALS: BP 154/82
[2020-06-02 05:09] LABS: CALCIUM 8.5 mg/dL (8.5-10.1); CREATININE 0.9 mg/dL (0.6-1.3); POTASSIUM 3.8 mmol/L (3.5-5.1)
[2020-06-02 08:00] VITALS: BP 140/80
[2020-06-02 11:50] VITALS: BP 172/86
[2020-06-02 12:18] VITALS: BP 172/86
--- NOTE | 2020-06-02 13:17 | CON ---
[address] [address] CONSULTATION Name: CHANDRAVA Treva Room: [address] IN ..#: [id number] Admission: 05/29/20 Attend Phys: William Pool MD Discharge: Date of : 35 Report #: [id number] THIS REPORT FOR: //name// cc: Gabrielle Ron Linda J. DO ~ THIS REPORT FOR: //name// CC: William Elena DATE OF SERVICE: 05/30/2020 NEPHROLOGY CONSULTATION CONSULTING PHYSICIAN: Dr. Pool. REASON FOR NEPHROLOGY CONSULTATION: Hyponatremia. REASON FOR ADMISSION: Hyponatremia. HISTORY OF PRESENT ILLNESS: This is an 84-year-old female who I was asked to come to the hospital by her song plugger because her sodium was low. Her sodium was 116 when she came in yesterday. She does have chronic hyponatremia. Her sodium was between 129 to 130, likely chronic diastolic congestive heart failure in October 2019. Her ejection fraction was 55-60%, has had acute kidney injuries in the past as well, but at this current point of time her creatinine is doing well at 1.0. The patient has been having some constipation and sore throat when she came in. She also has lower extremity edema, but she said that is not new for her. She was started on diuretics, Lasix 20 mg twice a day recently and when she came in yesterday as mentioned before, her sodium was 116. She was started on gentle hydration. Sodium is improved to 119. She denies taking any NSAIDs. I am not sure if she has been eating and drinking well at home, but she did state that she drinks about 30 ounces of water plus her coffee and some times argenis. Did not report any diarrhea, but some constipation. She does have evidence of possible left-sided pneumonia on a chest x-ray and in addition to Lasix, she is also taking Cymbalta at home. ALLERGIES: Lisinopril and methotrexate. REVIEW OF SYSTEMS: As mentioned in the history of present illness. She has hearing impairment, so review of systems is limited. HOME MEDICATIONS: Include hydrocortisone which is cream; digoxin; pantoprazole; duloxetine; MiraLax; Lasix 20 mg b.i.d.; duloxetine; temazepam; [place] [address] CONSULTATION Name: VA ARTIS Room: [address]#: [id number] Admission: 05/29/20 Attend Phys: William Pool MD Discharge: Date of : 35 Report #: [id number] PAST MEDICAL AND SURGICAL HISTORY: Includes hypertension, cardiac bypass in 2009, back surgery, hernia repair, left hip replacement, chronic diastolic congestive heart failure, ejection fraction of 55% to 60% in October of this year, rheumatoid arthritis, PE and COPD. FAMILY HISTORY: Not contributory because of her age. SOCIAL HISTORY: She smokes every day. No recreational drug use, but she does use alcohol to occasional argenis use. PHYSICAL EXAMINATION: VITAL SIGNS: Blood pressure is 138/89, respiratory rate is 18, pulse rate is 94, temperature 36.8 and she was on 4 liters of oxygen by nasal cannula, pulse ox being 98%. GENERAL: She was awake and alert. She was hard of hearing. She seems to be oriented. HEAD AND EYES: Atraumatic, normocephalic. Normal conjunctivae. EARS, NOSE, AND THROAT: Normal ears and nose. Mucous membranes are moist. CHEST: Bilateral diminished breath sounds anteriorly, but no crackles heard. CARDIOVASCULAR: S1, S2 normal. No murmurs. ABDOMEN: Soft, nondistended, nontender. EXTREMITIES: Lower extremities, there was 2+ edema to her knees and the patient's skin is very glistening. There is some erythema also in the bilateral lower extremities and patient states his edema has been there for a long time. NEUROLOGIC: Grossly intact. PSYCHIATRIC: Mood seems to be normal. LABORATORY DATA: WBC 7.7, hemoglobin 13.0, platelet count is 149. Uric acid was 8.1. Sodium this morning is 119 up from 116 yesterday; potassium was 3.4; creatinine was 1.0. Other labs are reviewed. IMAGING: Abdominal x-ray and chest x-ray were reviewed. ASSESSMENT: 1. Vzwxl-lh-qizbnyx hyponatremia. Sodium was 113 on admission, baseline sodium is around 129 to 130, this is likely in the setting of recent diuretic use and intravascular volume depletion. High uric acid is also pointing towards intravascular volume depletion. Uric acid was 8.1. Urine osmolality is pending. Urine sodium was 26, for which was also on diuretic. 2. Hypochloremia and metabolic alkalosis in the setting of volume depletion and diuretic use. 3. History of coronary artery disease. 4. Lower extremity edema, possibility of pneumonia, left sided. 5. Mild hypokalemia. 6. Recent constipation. 7. Protein-calorie malnutrition, hypoalbuminemia, albumin [place] 2[place] [address] CONSULTATION Name: VA ARTIS Room: [address] IN [facility]#: [id number] Admission: 05/29/20 Attend Phys: William Pool MD Discharge: Date of : 35 Report #: [id number] 8. History of rheumatoid arthritis. PLAN: 1. I am holding her Lasix and Cymbalta and gently hydrating her and her sodium is actually improving, it is 119 this morning. We will hydrate him for 1 more day and then we will likely continue with fluid restriction. Continue with fluid restriction for now at 1500 mL a day. 2. Potassium has been replaced. 3. Continue to check her sodium every 6 hours and inform us if the sodium is going up too fast or if it is dropping. Rate of rise of sodium should not be more than 60 mEq in 24-hour time span to prevent osmotic demyelination. 4. I have ordered potassium supplementation. 5. We will continue to follow with you. Check a TSH and cortisol as well. Discussed with the patient and the patient's nurse. <ELECTRONICALLY SIGNED> By: Donya White MD 06/02/20 1317 0948 1032Ademario White MD /nt
[2020-06-02 20:12] VITALS: BP 137/85
[2020-06-03] VITALS: BP 142/72
[2020-06-03 04:00] VITALS: BP 136/70
[2020-06-03 08:00] VITALS: BP 131/84
[2020-06-03 12:39] VITALS: BP 121/70
[2020-06-03 16:31] VITALS: BP 130/74
[2020-06-03 20:54] VITALS: BP 122/73
[2020-06-04] VITALS: BP 144/83
[2020-06-04 04:00] VITALS: BP 109/49
[2020-06-04 05:06] LABS: CALCIUM 8.6 mg/dL (8.5-10.1); CREATININE 0.9 mg/dL (0.6-1.3); POTASSIUM 3.7 mmol/L (3.5-5.1)
[2020-06-04 08:00] VITALS: BP 129/65
[2020-06-04 16:00] VITALS: BP 112/49
[2020-06-04 21:09] VITALS: BP 136/62
[2020-06-05] VITALS: BP 116/59
[2020-06-05 04:00] VITALS: BP 139/71
[2020-06-05 05:37] LABS: ABSOLUTE BASOPHILS 0.1 thou/uL (0.0-0.2); ABSOLUTE EOSINOPHILS 0.1 thou/uL (0.0-0.7); ABSOLUTE LYMPHOCYTES 1.4 thou/uL (0.8-5.3); ABSOLUTE MONOCYTES 0.6 thou/uL (0.0-1.2); ABSOLUTE NEUTROPHILS 5.5 thou/uL (1.6-8.1); BASOPHILS 1.2 %; EOSINOPHILS 0.8 %; HEMATOCRIT 37.7 % (37.0-47.0); HEMOGLOBIN 12.9 gm/dL (12.0-15.0); LYMPHOCYTES 18.2 %; MCH 30.1 pg (26.0-34.0); MCHC 34.1 g/dL (28.0-37.0); MCV 88.2 fL (80.0-100.0); MONOCYTES 7.7 %; MPV 9.2 fl. (7.2-11.1); NUCLEATED RBCS 0 /100WBC; PLATELET COUNT* 226 thou/uL (150-400); POLYS 72.1 %; RBC 4.28 mil/uL (4.20-5.00); RDW-CV 14.6 % (10.5-14.5); WBC 7.6 thou/uL (4.0-11.0)
[2020-06-05 05:38] LABS: URINE BILIRUBIN NEGATIVE (Negative); URINE BLOOD TRACE (Negative); URINE CLARITY CLEAR; URINE COLOR YELLOW; URINE GLUCOSE-RANDOM NEGATIVE (Negative); URINE KETONES NEGATIVE (Negative); URINE NITRITE-REFLEX NEGATIVE (Negative); URINE PROTEIN NEGATIVE (Negative); URINE SPECIFIC GRAVITY <= 1.005 (1.005-1.030)
[2020-06-05 05:44] LABS: URINE LEUKOCYTES-REFLEX 2+ (Negative)
[2020-06-05 05:50] LABS: CALCIUM 8.6 mg/dL (8.5-10.1); CREATININE 0.9 mg/dL (0.6-1.3); POTASSIUM 3.6 mmol/L (3.5-5.1)
[2020-06-05 05:52] LABS: BACTERIA-REFLEX 1-9 Few /HPF (None Seen); MUCUS 0-3 Light strn/LPF (None Seen); SQUAMOUS 0-3 Few /LPF (0-3); URINE RBC 0-2 Rare /HPF (0-2)
[2020-06-05 05:53] LABS: CASTS None Seen /LPF (None Seen); CRYSTALS None Seen /LPF (None Seen)
[2020-06-05 09:00] VITALS: BP 125/60
[2020-06-05 12:00] VITALS: BP 133/71
[2020-06-05 16:00] VITALS: BP 137/79
[2020-06-05 20:00] VITALS: BP 114/63
[2020-06-06] VITALS: BP 123/81
[2020-06-06 05:00] VITALS: BP 141/74
[2020-06-06 05:45] LABS: ABSOLUTE BASOPHILS 0.1 thou/uL (0.0-0.2); ABSOLUTE EOSINOPHILS 0.1 thou/uL (0.0-0.7); ABSOLUTE LYMPHOCYTES 1.4 thou/uL (0.8-5.3); ABSOLUTE MONOCYTES 0.7 thou/uL (0.0-1.2); ABSOLUTE NEUTROPHILS 5.1 thou/uL (1.6-8.1); BASOPHILS 0.8 %; EOSINOPHILS 1.6 %; HEMATOCRIT 37.9 % (37.0-47.0); HEMOGLOBIN 12.8 gm/dL (12.0-15.0); MCH 29.8 pg (26.0-34.0); MCHC 33.8 g/dL (28.0-37.0); MCV 88.1 fL (80.0-100.0); MONOCYTES 9.8 %; MPV 8.9 fl. (7.2-11.1); NUCLEATED RBCS 0 /100WBC; PLATELET COUNT* 230 thou/uL (150-400); POLYS 68.8 %; RBC 4.31 mil/uL (4.20-5.00); RDW-CV 14.9 % (10.5-14.5); WBC 7.5 thou/uL (4.0-11.0)
[2020-06-06 06:03] LABS: ALBUMIN 2.2 g/dL (3.4-5.0); CALCIUM 7.8 mg/dL (8.5-10.1); POTASSIUM 3.5 mmol/L (3.5-5.1); TOTAL BILIRUBIN 1.5 mg/dL (<0.1-1.0); TOTAL PROTEIN 5.9 g/dL (6.4-8.2)
[2020-06-06 06:08] LABS: MAGNESIUM 0.9 mg/dL (1.8-2.4)
[2020-06-06 08:00] VITALS: BP 143/83
[2020-06-06 12:03] VITALS: BP 117/66
[2020-06-06] MEDS ORDERED: DEMADEX20 MG PO (12:31)
[2020-06-06] MEDS ORDERED: COREG6.25 MG PO (12:31)
[2020-06-06] MEDS ORDERED: MAG-OXIDE400 MG PO (12:35)
[2020-06-06 15:54] VITALS: BP 120/67
== END 2020-06-06 17:09 | disposition home health service (06) | DRG 643 ==
LOC: M.ERS 13:44 → M.2W 15:10 → M.ICU 15:10 → M.TBA-ER 15:10 → M.ICU 17:30 → M.2W 05-31 23:46
PROVIDERS: Emergency Medicine Emergency Medical Services; Internal Medicine; ADMIT Internal Medicine; ATTEND Internal Medicine
DX: E22.2 Syndrome of inappropriate secretion of antidiuretic hormone (principal); E43 Unspecified severe protein-calorie malnutrition; I50.33 Acute on chronic diastolic (congestive) heart failure; I13.0 Hypertensive heart and chronic kidney disease with heart failure and stage 1 through stage 4 chronic kidney disease, or unspecified chronic kidney disease; E87.3 Alkalosis; I48.20 Chronic atrial fibrillation, unspecified; I25.10 Atherosclerotic heart disease of native coronary artery without angina pectoris; E87.8 Other disorders of electrolyte and fluid balance, not elsewhere classified; N18.9 Chronic kidney disease, unspecified; I25.5 Ischemic cardiomyopathy; F17.210 Nicotine dependence, cigarettes, uncomplicated; E87.6 Hypokalemia; Z66 Do not resuscitate; I34.0 Nonrheumatic mitral (valve) insufficiency; E78.5 Hyperlipidemia, unspecified; E83.42 Hypomagnesemia; R60.1 Generalized edema; M06.9 Rheumatoid arthritis, unspecified; J44.9 Chronic obstructive pulmonary disease, unspecified; R60.9 Edema, unspecified; Z96.642 Presence of left artificial hip joint; Z20.828 Contact with and (suspected) exposure to other viral communicable diseases; Z95.1 Presence of aortocoronary bypass graft; Z68.28 Body mass index [BMI] 28.0-28.9, adult; Z86.711 Personal history of pulmonary embolism; Z79.899 Other long term (current) drug therapy; Z88.8 Allergy status to other drugs, medicaments and biological substances

== ENCOUNTER 2020-07-29 08:15 | Inpatient (IN) | payer MEDICARE, OTHER ==
[~2020-07-29] VITALS: Ht 152.4 cm; Wt 62.6 kg
[~2020-07-29 08:15] MED LIST changes: +DEMADEX20 MG PO; +MAG-OXIDE400 MG PO; +ZAROXOLYN 5MG TA5 MG PO
[2020-07-29 08:26] VITALS: BP 122/89
[2020-07-29] MEDS ORDERED: PRILOSEC OTC20 MG PO (08:29)
[2020-07-29] MEDS ORDERED: POTASSIUM20 PO (08:30)
[2020-07-29] MEDS ORDERED: TORSEMIDE20 MG PO (08:30)
[2020-07-29] MEDS ORDERED: JANTOVEN4 MG PO (08:31)
[2020-07-29 08:58] LABS: ABSOLUTE BASOPHILS 0.1 thou/uL (0.0-0.2); ABSOLUTE EOSINOPHILS 0.1 thou/uL (0.0-0.7); ABSOLUTE LYMPHOCYTES 0.9 thou/uL (0.8-5.3); ABSOLUTE MONOCYTES 0.5 thou/uL (0.0-1.2); ABSOLUTE NEUTROPHILS 7.4 thou/uL (1.6-8.1); BASOPHILS 0.6 %; HEMATOCRIT 34.9 % (37.0-47.0); HEMOGLOBIN 11.4 gm/dL (12.0-15.0); LYMPHOCYTES 10.3 %; MCH 27.7 pg (26.0-34.0); MCHC 32.6 g/dL (28.0-37.0); MONOCYTES 5.9 %; MPV 9.4 fl. (7.2-11.1); NUCLEATED RBCS 0 /100WBC; PLATELET COUNT* 245 thou/uL (150-400); POLYS 82.2 %; RBC 4.11 mil/uL (4.20-5.00); RDW-CV 16.8 % (10.5-14.5); WBC 9.1 thou/uL (4.0-11.0)
[2020-07-29 09:10] LABS: APTT 45.3 Seconds (25.0-31.3); PROTIME 136.9 Seconds (9.20-11.50)
[2020-07-29 10:56] LABS: URINE BILIRUBIN NEGATIVE (Negative); URINE BLOOD NEGATIVE (Negative); URINE CLARITY CLEAR; URINE COLOR YELLOW; URINE GLUCOSE-RANDOM NEGATIVE (Negative); URINE KETONES NEGATIVE (Negative); URINE LEUKOCYTES-REFLEX NEGATIVE (Negative); URINE NITRITE-REFLEX NEGATIVE (Negative); URINE PROTEIN NEGATIVE (Negative); URINE UROBILINOGEN 0.2 E.U./dl (0.2-1.0)
[2020-07-29 11:38] LABS: CALCIUM 8.8 mg/dL (8.5-10.1); CREATININE 1.3 mg/dL (0.6-1.3)
[2020-07-29 11:43] LABS: ALBUMIN 2.6 g/dL (3.4-5.0); TOTAL BILIRUBIN 1.4 mg/dL (<0.1-1.0); TOTAL PROTEIN 7.4 g/dL (6.4-8.2)
[2020-07-29 16:06] VITALS: BP 127/92
[2020-07-29] MEDS ORDERED: RESTORIL30 MG PO (17:02)
[2020-07-29 21:00] VITALS: BP 117/75
[2020-07-30] VITALS: BP 123/71
[2020-07-30 04:00] VITALS: BP 124/55; BP 132/81
[2020-07-30 06:31] LABS: ABSOLUTE BASOPHILS 0.1 thou/uL (0.0-0.2); ABSOLUTE EOSINOPHILS 0.1 thou/uL (0.0-0.7); ABSOLUTE MONOCYTES 0.8 thou/uL (0.0-1.2); ABSOLUTE NEUTROPHILS 7.9 thou/uL (1.6-8.1); BASOPHILS 0.7 %; EOSINOPHILS 0.7 %; HEMATOCRIT 35.2 % (37.0-47.0); HEMOGLOBIN 11.5 gm/dL (12.0-15.0); LYMPHOCYTES 10.1 %; MCH 28.1 pg (26.0-34.0); MCHC 32.8 g/dL (28.0-37.0); MCV 85.4 fL (80.0-100.0); MONOCYTES 8.5 %; MPV 10.4 fl. (7.2-11.1); NUCLEATED RBCS 0 /100WBC; PLATELET COUNT* 203 thou/uL (150-400); RBC 4.12 mil/uL (4.20-5.00); RDW-CV 16.8 % (10.5-14.5); WBC 9.9 thou/uL (4.0-11.0)
[2020-07-30 06:41] LABS: CREATININE 1.2 mg/dL (0.6-1.3); POTASSIUM 3.7 mmol/L (3.5-5.1)
[2020-07-30 06:43] LABS: PROTIME 38.8 Seconds (9.20-11.50)
[2020-07-30 08:00] VITALS: BP 114/83
[2020-07-30 12:00] VITALS: BP 113/78
[2020-07-30 16:30] VITALS: BP 117/89
[2020-07-30 20:00] VITALS: BP 142/81
[2020-07-31] VITALS (7 sets, daily range): BP systolic 125–148; BP diastolic 75–91
[2020-07-31 07:04] LABS: INR 1.7; PROTIME 17.3 Seconds (9.20-11.50)
[2020-07-31] MEDS ORDERED: LASIX 40 MG TAB40 MG PO (12:01)
[2020-07-31] MEDS ORDERED: SPIRONOLACTONE25 M1 PO (12:01)
[2020-07-31 17:24] LABS: BF LYMPHOCYTES 36 %; BF MONOCYTES 7 %; BF POLYS 57 %; BF TISSUE 10 /100 WBC
[2020-07-31 17:29] LABS: CLARITY CLEAR; TOTAL VOLUME 3710 ml
[2020-07-31 17:30] LABS: BF RBC 4820 /mm3; BF WBC 450 /mm3
[2020-07-31 17:31] LABS: TOTAL CELL COUNT 5270 /mm3
[2020-08-02 17:02] LABS: SOURCE ABDOMINAL FLUID
--- NOTE | 2020-08-03 07:09 | PATH ---
[address] [address] PATHOLOGY RPT PROCEDURE Name: VA ARTIS Room: [address]#: [id number] Admission: 07/29/20 Date of : 35 Discharge: 07/31/20 Report #: [id number] Path Case #: [id number] Note [facility] Accession Number: [id number] TESTS RESULT FLAG UNITS REF RANGE LAB Clinician Provided Cytology Information No. of containers..01 Other (Miscellaneous) Source: PERITONEAL DIAGNOSIS: 02 PERITONEAL NEGATIVE FOR MALIGNANT CELLS. REACTIVE MESOTHELIAL CELLS AND ACUTE AND CHRONIC INFLAMMATORY CELLS. THIS INTERPRETATION INCLUDES EVALUATION OF A CELL BLOCK. Signed out by: 02 Alin Crisostomo MD, Pathologist NPI- [id number] Performed by: 01 Gabrielle Schofield, Concrete Craftsman ([facility]) Gross description: 01 50 ML, CLOUDY YELLOW, 1 TP 1 CB /LCS 08/01/2020 0527 Local FLAG LEGEND: L-Low Normal,H-High Normal,LL-Alert Low,HH-Alert High <-Panic Low,>-Panic High,A-Abnormal,AA-Critical Abnormal Performed at: [address] [place] [address] Benito Avitia MD, [address] [place] [address] [address] [facility], [place] [address] Alin Crisostomo MD, Specimen Comment: A courtesy copy of this report has been sent to [phone] Specimen Comment: Report sent to Specimen Comment: A duplicate report has been generated due to demographic updates. Performed at: [address], [place], [place] [id number] MD Benito Avitia MD Phone: [phone]
== END 2020-07-31 18:00 | disposition home health service (06) | DRG 291 ==
LOC: M.ERS 08:15 → M.TBA-ER 12:23 → M.2W 12:23
PROVIDERS: Personal Emergency Response Attendant; ADMIT Internal Medicine; ATTEND Internal Medicine
PROC: 5A09357 Assistance with Respiratory Ventilation, Less than 24 Consecutive Hours, Continuous Positive Airway Pressure (ICD-10-PCS; 2020-07-29)
PROC: 0W9G3ZZ Drainage of Peritoneal Cavity, Percutaneous Approach (ICD-10-PCS; principal; 2020-07-30)
PROC: 5A09357 Assistance with Respiratory Ventilation, Less than 24 Consecutive Hours, Continuous Positive Airway Pressure (ICD-10-PCS; 2020-07-31)
DX: I11.0 Hypertensive heart disease with heart failure (principal); E43 Unspecified severe protein-calorie malnutrition; R18.8 Other ascites; I50.43 Acute on chronic combined systolic (congestive) and diastolic (congestive) heart failure; I42.9 Cardiomyopathy, unspecified; T45.515A Adverse effect of anticoagulants, initial encounter; K74.60 Unspecified cirrhosis of liver; M06.9 Rheumatoid arthritis, unspecified; I25.10 Atherosclerotic heart disease of native coronary artery without angina pectoris; Z66 Do not resuscitate; Z20.828 Contact with and (suspected) exposure to other viral communicable diseases; Z95.1 Presence of aortocoronary bypass graft; Y92.89 Other specified places as the place of occurrence of the external cause; Z68.27 Body mass index [BMI] 27.0-27.9, adult; Z86.711 Personal history of pulmonary embolism

== ENCOUNTER → 2021-02-06 | Outpatient (CLI) | payer MEDICARE, OTHER ==
[~2021-02-06] MED LIST changes: +JANTOVEN4 MG PO; +LASIX 40 MG TAB40 MG PO; +POTASSIUM20 PO; +PRILOSEC OTC20 MG PO; +SPIRONOLACTONE25 M1 PO; +TORSEMIDE20 MG PO
[2021-02-06 13:58] LABS: CALCIUM 10.5 mg/dL (8.5-10.1); CREATININE 1.2 mg/dL (0.6-1.3); POTASSIUM 4.9 mmol/L (3.5-5.1)
== END ==
LOC: M.LAB 13:34
PROVIDERS: ATTEND Registered Nurse
DX: I50.22 Chronic systolic (congestive) heart failure (principal); I48.91 Unspecified atrial fibrillation

== ENCOUNTER 2021-05-19 15:03 | Inpatient (IN) | payer MEDICARE, OTHER ==
[~2021-05-19] VITALS: Ht 152.4 cm; Wt 50.8 kg
--- NOTE | ~2021-05-19 | OP ---
[address] [address] OPERATIVE REPORT Name: VA ARTIS Room: [address] IN [facility]#: [id number] Admission: 05/19/21 Attend Phys: Thomas Egan Discharge: Date of : 35 Report #: [id number] THIS REPORT FOR: cc: Gabrielle Ron Linda J. DO Greiner, Robert F. II DO ~ DATE OF SURGERY: 05/21/2021 PREOPERATIVE DIAGNOSIS: Right hip intertrochanteric fracture. POSTOPERATIVE DIAGNOSIS: Right hip intertrochanteric fracture. PROCEDURE: Right hip intramedullary nailing of intertrochanteric fracture. SURGEON: Luther Mariano DO SOLVENT RECOVERER: None. ANESTHESIA: Per operative record. ESTIMATED BLOOD LOSS: 50 mL. ANTIBIOTICS: Ancef 2 grams preoperatively. SPECIMENS: None. COMPLICATIONS: None. CONDITION: The patient stable to recovery room. IMPLANTS USED: Anthony gamma nail with appropriate lag and locking screw. OPERATIVE PROCEDURE: The patient was taken to operative suite, placed supine on the operating table with appropriate anesthesia,. The patient was placed supine on the [place] table. The nonoperative leg was placed in lithotomy position out of the way of the operative field. Fracture was closed reduced under C-arm fluoroscopy in a near anatomic fashion. Right hip was sterilely prepped and draped. The procedure began by proximal incision over the trochanter, was carried down to subcutaneous tissues, through the tensor fascia. The proximal point of the trochanter was found and the K-wire was placed in the intramedullary canal, visualized both AP and lateral directions. The tissue sleeve was then utilized with the 1-step reamer and reaming was performed of the proximal aspect of the femur. A short gamma nail was then utilized and placed on its human resources office manager. It was then placed down into the intramedullary canal and checked in both the AP and lateral directions to be at appropriate depth. The guidepin was then placed up through the lag screw into [place] [address] OPERATIVE REPORT Name: VA ARTIS Room: [place] [address] ADM IN [facility]#: [id number] Admission: 05/19/21 Attend Phys: Thomas Egan Discharge: Date of : 35 Report #: [id number] measured in appropriate fashion. This was in the most inferior and center position of the femoral head. This was then measured and reamed for appropriate depth with a reamer and the appropriate lag screw was then placed. This was then compressed and a proximal antirotational screw was then placed into the nail and checked for appropriate alignment. Distal screw targeting guide was then applied. A small incision was made. This was taken down to the bone. Drill was then utilized to the static hole. This was then measured to appropriate depth and screw was applied. Final images were taken. The human resources office manager handle was removed. The wound was then copiously irrigated. Tensor fascia was closed with #1 Vicryl and subcuticular layer was closed with 2-0 Vicryl. The proximal incision was closed with Monocryl and the distal incisions were closed with 3-0 nylon. Dermabond sterile dressing applied. The patient transported to recovery room in stable condition. Counts were correct throughout the procedure. By: 1138 1205Luther Mariano II, DO /nt
[2021-05-19 15:04] VITALS: BP 118/76
[2021-05-19 16:17] LABS: ABSOLUTE BASOPHILS 0.1 thou/uL (0.0-0.2); ABSOLUTE LYMPHOCYTES 1.6 thou/uL (0.8-5.3); ABSOLUTE MONOCYTES 1.2 thou/uL (0.0-1.2); ABSOLUTE NEUTROPHILS 11.1 thou/uL (1.6-8.1); BASOPHILS 0.7 %; EOSINOPHILS 6.4 %; HEMATOCRIT 37.5 % (37.0-47.0); HEMOGLOBIN 12.5 gm/dL (12.0-15.0); LYMPHOCYTES 10.9 %; MCH 29.5 pg (26.0-34.0); MCHC 33.5 g/dL (28.0-37.0); MONOCYTES 7.8 %; MPV 8.1 fl. (7.2-11.1); NUCLEATED RBCS 0 /100WBC; PLATELET COUNT* 268 thou/uL (150-400); POLYS 74.2 %; RBC 4.26 mil/uL (4.20-5.00); RDW-CV 15.3 % (10.5-14.5)
[2021-05-19 16:27] LABS: CALCIUM 8.8 mg/dL (8.5-10.1); CREATININE 1.1 mg/dL (0.6-1.3); POTASSIUM 4.5 mmol/L (3.5-5.1)
[2021-05-19 16:31] LABS: ALBUMIN 2.7 g/dL (3.4-5.0); TOTAL BILIRUBIN 0.5 mg/dL (<0.1-1.0); TOTAL PROTEIN 7.5 g/dL (6.4-8.2)
[2021-05-19 16:34] LABS: INR 1.8; PROTIME 18.5 Seconds (9.20-11.50)
[2021-05-19 16:45] VITALS: BP 103/66
[2021-05-19 17:15] VITALS: BP 95/58
--- NOTE | 2021-05-19 19:38 | NUR ---
PT WAS ADMITTED THIS PM. DUE TO FALL AT HOME AND SHE BROKE HER RIGHT HIP. VSS AFEBRILE. PT HAS SALINE ;LOCK IN HER LEFT AC SPACE. POSSIBLE SUGERY TOMORROW. WILL CONTINUE TO MONITOR PLAN OF CARE.
[2021-05-20 04:53] LABS: HEMATOCRIT 38.4 % (37.0-47.0); MCH 29.9 pg (26.0-34.0); MCV 88.1 fL (80.0-100.0); MPV 8.6 fl. (7.2-11.1); RBC 4.36 mil/uL (4.20-5.00); RDW-CV 15.3 % (10.5-14.5)
[2021-05-20 05:08] LABS: CALCIUM 8.8 mg/dL (8.5-10.1); CREATININE 1.1 mg/dL (0.6-1.3)
--- NOTE | 2021-05-20 05:12 | NUR ---
PT ADMITTED TO FLOOR JUST SHORTLY BEFORE SHIFT CHANGE YESTERDAY. SHE IS AO X2-3 WITH DAUGHTER AT BEDSIDE. SHE HAS HAD SOME REACTION TO ANESTHESIA IN THE PAST. PT HAVING PAIN 7/10 IN RT HIP DUE TO FALL IN THE HOME RESULTING IN A FX OF THE RT HIP. PT HAS BEEN NPO AFTER MIDNIGHT IN ANTICIPATION OF SURG TO REPAIR HIP. HER DAUGHTER IS VERY CONCERNED AND WANTS TO SPEAK WITH ANESTHESIA DUE TO HER HAVING SOME TYPE OF PHYCHIATRIC BREAK WITH PREVIOUS SURG APPROX 10 YEARS AGO. PT TOLORATING PAIN MEDS, BED ALARM ON FOR COMFORT, CALL LIGHT IN REACH.
[2021-05-20 05:13] LABS: INR 1.6
[2021-05-20 08:20] VITALS: BP 132/79
--- NOTE | 2021-05-20 13:32 | EKG ---
[place] [address] ELECTROCARDIOGRAM REPORT Name: VA ARTIS Room: [address] ADM IN ..#: [id number] Admission: 05/19/21 Attend Phys: Ashwin Wade Discharge: Date of : 35 Date of Service: 05/19/21 1620 Report #: [id number] THIS REPORT FOR: //name// [facility] ED Test Date: 2021-05-19 Test Time: 16:20:03 Pat Name: VA ARTIS Department: Room: [facility] Gender: F Oncology Physician: DEBRA : 1935 Requested By: Tiago Triplett Order Number: [id number] MD: Scout Zavala Measurements Intervals [place] Rate: 87 P: [place]: QRS: 35 QRSD: 152 T: -5 QT: 395 QTc: 476 Interpretive Statements Atrial fibrillation Right bundle branch block Compared to ECG 05/29/2020 13:52:37 Ventricular premature complex(es) no longer present Electronically Signed On 05-20-2021 13:32:02 CDT by Scout Zavala [email or web address] <ELECTRONICALLY SIGNED> By: Scout Zavala MD, [facility] 05/20/21 1332 1620 1620 Scout Zvaala MD, [facility] /EPI
[2021-05-20 17:32] VITALS: BP 134/67
[2021-05-21 05:03] LABS: INR 1.6; PROTIME 16.1 Seconds (9.20-11.50)
[2021-05-21 05:07] LABS: ANION GAP 7 mmol/L (7-16); BUN 18 mg/dL (7-18); CALCIUM 8.7 mg/dL (8.5-10.1); CHLORIDE 91 mmol/L (98-107); CHOLESTEROL 166 mg/dL (<200); CO2 30 mmol/L (21-32); CREATININE 0.8 mg/dL (0.6-1.3); GLUCOSE 115 mg/dL (70-99); HDL CHOLESTEROL 59 mg/dL (>40); LDL CHOLESTEROL 99 mg/dL (<100); SODIUM 128 mmol/L (136-145); TC:HDL 2.8 Ratio (Not establshd); TRIGLYCERIDE 40 mg/dL (<150); VLDL 8 mg/dL (<40)
[2021-05-21 05:12] LABS: SERUM ASSESSMENT Clear
[2021-05-21 06:28] VITALS: BP 134/67
--- NOTE | 2021-05-21 06:44 | NUR ---
PT AOX 4 BUT VERY HARD OF HEARING. SHE HAS REQUESTED PAIN MEDS, XANAX AND TEMAZEPAM FREQUENTLY, SHE IS DROWSY AND SPEECH IS SLURRED. DAUGHTER AT BEDSIDE REQUESTING PAIN MEDS. PT REMOVED IV EARLY THIS AM, THIS RN WAS NOT ABLE TO OBTAIN ONE DUE TO PT ANATOMY, PACU NURSE NOTIFIED AND PREOP FORMS ON THE CHART. BELONGINGS SENT WITH DAUGHTER PT WOULD BE ASSIGNED TO TELE FROM PACU. NERI TO DD, CLEAR YELLOW URINE. BED ALARM ON FOR SAFETY
--- NOTE | 2021-05-21 07:14 | CON ---
[address] [address] CONSULTATION Name: VA ARTIS Room: [address] IN .R.#: [id number] Admission: 05/19/21 Attend Phys: Thomas Egan Discharge: Date of : 35 Report #: [id number] THIS REPORT FOR: cc: Gabrielle Ron Linda J. DO Greiner, Robert F. II DO ~ DATE OF CONSULTATION: 05/20/2021 ORTHOPEDIC CONSULTATION CHIEF COMPLAINT: Right hip pain. HISTORY OF PRESENT ILLNESS: The patient is an 85-year-old female with history of AFib, on anticoagulation, previous cardiac bypass, depression, esophageal reflux, hypertension, rheumatoid arthritis, COPD, systolic heart failure, who is currently brought to the Emergency Room after she stubbed her toe resulting in a fall landing on her right hip. The patient states she had immediate pain that lasted for several hours, it got worse with standing and was relieved with rest. The patient had a right hip fracture upon workup in the Emergency Room and we were consulted for further evaluation. REVIEW OF SYSTEMS: A 14-point review of systems was obtained and negative except for pertinent positives in the HPI. FAMILY HISTORY: Reviewed and noncontributory to HPI. SOCIAL HISTORY: The patient does smoke tobacco. The patient denies alcohol or drug use. MEDICATIONS: Listed in chart and H and P. ALLERGIES: LISINOPRIL AND METHOTREXATE. PHYSICAL EXAMINATION: VITAL SIGNS: Temperature 98.2, pulse 71, respirations 16. GENERAL: The patient is alert, oriented and in moderate to mild distress with the right hip pain. EYES: PERRLA, EOMI. HENT: Head is atraumatic, normocephalic. Ears: Patent. Nose: Moist mucous membranes. Throat: No lymphadenopathy. NECK: Supple, nontender, no JVD. RESPIRATORY: The patient's lungs are clear to auscultation bilaterally. Breath sounds equal. CARDIOVASCULAR: Normal rate. GASTROINTESTINAL: Soft, nontender, [place] [address] CONSULTATION Name: VA ARTIS Room: [address] IN [facility]#: [id number] Admission: 05/19/21 Attend Phys: Thomas Egan Discharge: Date of : 35 Report #: [id number] GENITOURINARY: No CVA tenderness. LYMPHATICS: No lymphadenopathy. INTEGUMENTARY: Warm and dry MUSCULOSKELETAL: The patient has a right hip joint tenderness with rotation. NEUROLOGIC: The patient is alert and oriented. PSYCHIATRIC: The patient is cooperative and appropriate mood and affect. LABORATORY DATA: X-ray of the right hip is obtained which shows right proximal femoral nondisplaced intertrochanteric fracture, prior left hemiarthroplasty is also of note. Chest x-ray shows left lung partially consolidated infiltration with small pleural effusion, possibly chronic, mild cardiomegaly with prior sternotomy. Admitting white blood cell count was 15.0, current white blood cell count is 8.0, hemoglobin 12.5, platelets 260. Sodium slightly low at 129, potassium 4.5. ASSESSMENT: 1. Right proximal femoral nondisplaced intertrochanteric fracture. 2. Hyponatremia. 3. Atrial fibrillation, on anticoagulation. 4. Hypertension. 5. Rheumatoid arthritis. 6. Chronic systolic heart failure. 7. History of bypass. 8. Chronic obstructive pulmonary disease. 9. Esophageal reflux disease. 10. Depression. 11. Tobacco dependence. PLAN: At this time, the patient's right hip x-rays were reviewed with family and the patient at bedside. She discussed nonoperative versus operative intervention. The family and the patient wished to proceed with operative intervention. We will continue surgical clearance with normalization of the sodium as well as hydration of the patient as well as decreasing her INR to a more normal location. At this time, she will be okay to eat but n.p.o. after midnight, pain control as needed. Continue home medications as per medicine. Nicotine patch as instructed as the patient does smoke. Continue SCDs for DVT prophylaxis and we will plan for surgery Friday morning as if the patient's INR is normal, sodium is within normal region and the [place] [address] CONSULTATION Name: VA ARTIS Treva Room: [address] IN [facility]#: [id number] Admission: 05/19/21 Attend Phys: Thomas Egan Discharge: Date of : 35 Report #: [id number] Thank you for participation in this consultation. <ELECTRONICALLY SIGNED> By: Luther Mariano II, DO 05/21/21713 14 2056Robisma Mariano II, DO /nt
--- NOTE | 2021-05-21 16:16 | NUR ---
Pt at surgery today. Resides at home with and dtr. Family assists as needed. Has home o2 and cpap. Pt has a home wc. Hx [facility] HH. Hx of [facility]. GI following. Tele post surgery. CM to contact family to complete assessment, no one was in the room when CM attempted.
--- NOTE | 2021-05-21 17:12 | CON ---
[address] [address] CONSULTATION Name: VA ARTIS Room: [place] [address] ADM IN [facility].#: [id number] Admission: 05/19/21 Attend Phys: Thomas Egan Discharge: Date of : 35 Report #: [id number] THIS REPORT FOR: cc: Gabrielle Ron,Scout Tristan MD [facility] ~ cc: Gabrielle Ron DO DATE OF CONSULTATION: 05/20/2021 CARDIOLOGY CONSULTATION HISTORY OF PRESENT ILLNESS: The patient is an 85-year-old white female who I was asked to see in the hospital today because of her history of coronary artery disease. The patient has a long and extensive past medical history. She apparently had triple vessel bypass surgery at [facility] almost 10 years ago. She has a history of cardiomyopathy and has been followed by my partner, Dr. Juan Jose Peralta. Unfortunately, she continues to smoke a pack of cigarettes a day and has a chronic cough. She is on oxygen at home. She was last admitted here to [facility] in July with congestive heart failure. She was diagnosed with cirrhosis. She had an echocardiogram performed last May that showed ejection fraction only 30% with biatrial enlargement, aortic sclerosis, mild mitral regurgitation. The patient is not very active at this time and uses a walker. Apparently, she was at home yesterday when she slipped out of the couch trying to get up. She was brought here to [place] and found to have a fractured hip. She is scheduled to undergo hip surgery. Cardiology consultation was requested. She denies any recent chest pain. She does get short of breath with minimal activity. She denies any palpitations or syncope. PAST MEDICAL HISTORY: Also, significant for permanent atrial fibrillation, rate controlled with digoxin, the patient has been chronically anticoagulated. CURRENT MEDICATIONS: Consist of carvedilol, Lasix, Aldactone, digoxin, warfarin, Cymbalta. ALLERGIES: SHE HAS A PREVIOUS INTOLERANCE TO LISINOPRIL. FAMILY HISTORY: Her father had congestive heart failure. SOCIAL HISTORY: She is . She and her live in [place]. She smokes a pack of cigarettes a day, 2 drinks of alcohol a day. REVIEW OF SYSTEMS: She has no history of stroke. She has sleep apnea, uses CPAP. She has a history of cirrhosis. No history of kidney disease, cancer, [place] [address] CONSULTATION Name: VA ARTIS Room: [address] IN [facility]#: [id number] Admission: 05/19/21 Attend Phys: Thomas Egan Discharge: Date of : 35 Report #: [id number] psychiatric illness or chronic skin condition. PHYSICAL EXAMINATION: GENERAL: Revealed an elderly female lying in bed. She appeared in no distress. VITAL SIGNS: She has a blood pressure of 110/60, pulse is 80, she is afebrile. HEENT: She is anicteric. Conjunctivae pink. Mucosa moist. NECK: Veins do not appear distended. No carotid bruits. Neck supple. CHEST: Revealed decreased breath sounds at bases. HEART: Irregular, tachycardia. No significant murmur. ABDOMEN: Soft. EXTREMITIES: Had no edema. Dorsalis pedis pulse cannot be palpated. SKIN: Cool and dry. NEUROLOGIC: Nonfocal. LABORATORY DATA: Her ECG on admission showed atrial fibrillation with a right bundle branch block. Her lab work, her chest x-ray showed small left effusion, cardiomegaly, evidence of previous sternotomy. Her lab work, the patient had sodium of 128, it has been as low as 121 last May. BUN 27, creatinine 1.1, albumin is only 2.7. Troponin 0.06. Her white blood cell count 8.0, hemoglobin 13. Her INR on admission is 1.6. IMPRESSION AND RECOMMENDATIONS: 1. Hip fracture. The patient being considered for hip surgery. The patient will be a risk for cardiac complications due to her advanced age, previous bypass surgery, history of atrial fibrillation and smoking. However, she appears to have no absolute cardiac contraindication to surgery. 2. Hypertension. The patient is on a beta ginna. 3. Atrial fibrillation. Rate controlled with a beta gnina and digoxin. I would hold anticoagulation at this time. 4. Tobacco abuse with chronic bronchitis. 5. Sleep apnea. The patient uses CPAP. 6. History of excessive alcohol use. 7. Previous history of cirrhosis. <ELECTRONICALLY SIGNED> By: Scout Zavala MD, [facility] 05/21/21 1712 1035 [id number] Zavala MD, FAC /nt
[2021-05-21 17:30] VITALS: BP 131/72
[2021-05-21 20:14] VITALS: BP 119/64
[2021-05-22 00:50] VITALS: BP 134/74
[2021-05-22 04:43] LABS: HEMATOCRIT 27.6 % (37.0-47.0); MCH 30.1 pg (26.0-34.0); MCV 88.5 fL (80.0-100.0); MPV 8.9 fl. (7.2-11.1); RBC 3.12 mil/uL (4.20-5.00); RDW-CV 15.2 % (10.5-14.5); WBC 6.9 thou/uL (4.0-11.0)
[2021-05-22 04:44] LABS: HEMOGLOBIN 9.4 gm/dL (12.0-15.0)
[2021-05-22 04:50] LABS: APTT 33.3 Seconds (25.0-31.3); INR 1.5; PROTIME 15.8 Seconds (9.20-11.50)
[2021-05-22 04:57] VITALS: BP 130/70
--- NOTE | 2021-05-22 05:27 | NUR ---
PT IS ABLE TO COMMUNICATE HER NEEDS TO STAFF WITH MINOR DIFFICULTY; SHE IS VERY NYAF-DI-FONDQOB AND FORGETFUL AT TIMES. CURRENT PAIN MEDICATION REGIMEN HAS BEEN ADEQUATE FOR CONTROLLING HER PAIN UP TO THIS TIME. NERI HAS BEEN PATENT UP TO THIS TIME. SCDs HAVE BEEN ON OVERNIGHT, UP TO THIS TIME. CONTINUOUS PULSE OX MAINTIANED.
[2021-05-22 06:07] LABS: CALCIUM 7.9 mg/dL (8.5-10.1); CREATININE 0.8 mg/dL (0.6-1.3); POTASSIUM 4.7 mmol/L (3.5-5.1)
[2021-05-22 06:10] LABS: HEMATOCRIT 33.2 % (37.0-47.0); MCH 29.6 pg (26.0-34.0); MCHC 33.4 g/dL (28.0-37.0); MCV 88.6 fL (80.0-100.0); MPV 8.7 fl. (7.2-11.1); RBC 3.74 mil/uL (4.20-5.00); RDW-CV 14.9 % (10.5-14.5); WBC 10.2 thou/uL (4.0-11.0)
[2021-05-22 06:14] LABS: HEMOGLOBIN 11.1 gm/dL (12.0-15.0)
[2021-05-22 06:26] LABS: HEMATOCRIT ND % (37.0-47.0); HEMOGLOBIN ND gm/dL (12.0-15.0)
[2021-05-22 08:32] VITALS: BP 141/75
[2021-05-22 11:53] VITALS: BP 126/75
--- NOTE | 2021-05-22 12:59 | NUR ---
EVALUATION INITIATED BY THIS BRASS MOLDER HELPER AND COMPLETED BY ANNABEL MELENDEZ. THIS BRASS MOLDER HELPER IS IN AGREEMENT WITH DOCUMENTED EVALUATION. BRIANA PABONT
--- NOTE | 2021-05-22 13:50 | EKG ---
[place] [address] ELECTROCARDIOGRAM REPORT Name: VA ARTIS Room: [address] ADM IN [facility].#: [id number] Admission: 05/19/21 Attend Phys: Ashwin Wade Discharge: Date of : 35 Date of Service: 05/22/219[address] Report #: [id number] THIS REPORT FOR: //name// [facility] Test Date: 2021-05-22 Test Time: 09:05:06 Pat Name: VA ARTIS Department: Room: [facility] Gender: F Music Minister: RICCI : 1935 Requested By: Scout Zavala Order Number: [id number] Andrew MD: Scout Zavala Measurements Intervals [place] Rate: 74 P: [place]: QRS: 24 QRSD: 159 T: -21 QT: 395 QTc: 439 Interpretive Statements Atrial fibrillation Right bundle branch block Compared to ECG 05/19/2021 16:20:03 No significant changes Electronically Signed On 05-22-2021 13:50:31 CDT by Scout Zavala [email or web address] <ELECTRONICALLY SIGNED> By: Scout Zavala MD, FACC 05/22/21 1350 0905 0905 Scout Zavala MD, [facility] /EPI
--- NOTE | 2021-05-22 15:31 | NUR ---
THIS WIND TURBINE ELECTRICAL ENGINEER IS IN AGREEMENT WITH DOCUMENTED TREATMENT NOTE BY ANNABEL MELENDEZ FOR THIS DAY. BRIANA PABONT
--- NOTE | 2021-05-22 15:50 | NUR ---
Plan ARU at in. Therapies to eval. 2L o2. Anticipate later today or tomorrow.
[2021-05-22 16:34] VITALS: BP 136/77
--- NOTE | 2021-05-22 18:13 | NUR ---
PATIENT ARRIVED TO UNIT FROM TELE AT APPROX. 1735. PATIENT IS A&OX4, PLEASANT AND COOPERATIVE WITH CARES. URINARY CATHETER IN PLACE, CLEAR, YELLOW URINE PRESENT IN COLLECTION BAG. PATIENT WEARING O2 VIA NASAL CANNULA AT 3L. FLUIDS INFUSING ORDERED. CALL LIGHT AND FREQUENTLY USED ITEMS WITHIN REACH.
[2021-05-23 00:09] VITALS: BP 139/70
[2021-05-23 06:17] LABS: ABSOLUTE BASOPHILS 0.1 thou/uL (0.0-0.2); ABSOLUTE EOSINOPHILS 0.6 thou/uL (0.0-0.7); ABSOLUTE LYMPHOCYTES 1.5 thou/uL (0.8-5.3); ABSOLUTE MONOCYTES 0.9 thou/uL (0.0-1.2); ABSOLUTE NEUTROPHILS 5.6 thou/uL (1.6-8.1); BASOPHILS 1.2 %; EOSINOPHILS 6.8 %; HEMATOCRIT 31.9 % (37.0-47.0); HEMOGLOBIN 10.8 gm/dL (12.0-15.0); LYMPHOCYTES 17.5 %; MCH 29.9 pg (26.0-34.0); MCHC 33.8 g/dL (28.0-37.0); MCV 88.6 fL (80.0-100.0); MONOCYTES 10.2 %; MPV 8.9 fl. (7.2-11.1); NUCLEATED RBCS 0 /100WBC; PLATELET COUNT* 205 thou/uL (150-400); POLYS 64.3 %; RDW-CV 15.1 % (10.5-14.5); WBC 8.7 thou/uL (4.0-11.0)
[2021-05-23 06:32] LABS: INR 1.2; PROTIME 12.4 Seconds (9.20-11.50)
--- NOTE | 2021-05-23 06:33 | NUR ---
PATIENT HAS SLEPT OFF AND ON DURING THE NIGHT. VSS ON 3L 02. PATIENT ON HOME CPAP AT NIGHT. MEDICATIONS GIVEN ORDERED AND CHARTED. PATIENT UP WITH ASSIST X 1-2 TO BS AND MOVES VERY SLOW. PATIENT DOES NOT HAVE ALOT OF MOTIVATION TO GET UP AND MOVE. DRESSING TO RIGHT HIP IS C/D/I. NERI TO DEPENDENT DRAINAGE WITH YELLOW URINE OUTPUT. IV IN RIGHT FOREARM-SL. FALL PRECAUTIONS IN PLACE AND HOURLY ROUNDS MADE. WILL CONTINUE WITH PLAN OF CARE AND NURSING TO MONITOR.
[2021-05-23 06:36] LABS: ALBUMIN 2.2 g/dL (3.4-5.0); CREATININE 0.7 mg/dL (0.6-1.3); POTASSIUM 4.7 mmol/L (3.5-5.1); TOTAL BILIRUBIN 0.6 mg/dL (<0.1-1.0); TOTAL PROTEIN 6.3 g/dL (6.4-8.2)
[2021-05-23 07:39] VITALS: BP 131/64
[2021-05-23] MEDS ORDERED: ENOXAPARIN40 MG/0.1 SUBQ (10:24)
[2021-05-23] MEDS ORDERED: OXYCODONE HCL5 M1 PO (10:24)
[2021-05-23] MEDS ORDERED: NORCO5 PO (12:12)
--- NOTE | 2021-05-23 12:52 | NUR ---
THIS BUREAU CHIEF AGREES WITH DOCUMENTED TREATMENT NOTE BY ANNABEL MELENDEZ FOR THIS DAY. BRIANA PABONT
[2021-05-23 15:41] VITALS: BP 123/76
--- NOTE | 2021-05-23 16:06 | NUR ---
PATIENT HAS REMAINED A&OX4 (FORGETFUL AT TIMES), PLEASANT AND COOPERATIVE WITH CARES THIS SHIFT. URINARY CATHETER IN PLACE TO DD, YELLOW URINE IN COLLECTION BAG. PATIENT BEING DISCHARGED TO ROOM 325 AT [facility]. IV REMOVED. PATIENT LEFT UNIT VIA RECLINER AT APPROX. 1607 WITH PERSONAL BELONGINGS, ACCOMPANIED BY NURSING STAFF AND DAUGHTER.
== END 2021-05-23 16:08 | DRG 481 ==
LOC: M.ERS 15:03 → M.3W 16:03 → M.TBA-ER 16:03 → M.3W 17:06 → M.TBA-ER 05-21 09:09 → M.2W 05-21 17:00 → M.3W 05-22 17:35
PROVIDERS: Emergency Medicine Emergency Medical Services; Family Medicine; Internal Medicine; Internal Medicine Cardiovascular Disease; Orthopaedic Surgery; ADMIT Internal Medicine; ATTEND Internal Medicine
PROC: 0QS606Z Reposition Right Upper Femur with Intramedullary Internal Fixation Device, Open Approach (ICD-10-PCS; principal; 2021-05-21)
PROC: 5A09357 Assistance with Respiratory Ventilation, Less than 24 Consecutive Hours, Continuous Positive Airway Pressure (ICD-10-PCS; principal; 2021-05-21)
PROC: 5A09357 Assistance with Respiratory Ventilation, Less than 24 Consecutive Hours, Continuous Positive Airway Pressure (ICD-10-PCS; 2021-05-22)
DX: S72.141A Displaced intertrochanteric fracture of right femur, initial encounter for closed fracture (principal); E87.1 Hypo-osmolality and hyponatremia; E44.0 Moderate protein-calorie malnutrition; I50.22 Chronic systolic (congestive) heart failure; I42.9 Cardiomyopathy, unspecified; I48.21 Permanent atrial fibrillation; Z20.822 Contact with and (suspected) exposure to COVID-19; F17.210 Nicotine dependence, cigarettes, uncomplicated; F32.9 Major depressive disorder, single episode, unspecified; K21.9 Gastro-esophageal reflux disease without esophagitis; I11.0 Hypertensive heart disease with heart failure; M06.9 Rheumatoid arthritis, unspecified; J44.9 Chronic obstructive pulmonary disease, unspecified; K74.60 Unspecified cirrhosis of liver; G47.33 Obstructive sleep apnea (adult) (pediatric); R53.81 Other malaise; I25.10 Atherosclerotic heart disease of native coronary artery without angina pectoris; W01.0XXA Fall on same level from slipping, tripping and stumbling without subsequent striking against object, initial encounter; Z95.1 Presence of aortocoronary bypass graft; Z79.899 Other long term (current) drug therapy; Z88.8 Allergy status to other drugs, medicaments and biological substances; Z79.01 Long term (current) use of anticoagulants; Z79.82 Long term (current) use of aspirin; Z99.81 Dependence on supplemental oxygen; Y93.89 Activity, other specified; Y92.89 Other specified places as the place of occurrence of the external cause; Y99.8 Other external cause status; Z68.21 Body mass index [BMI] 21.0-21.9, adult

== ENCOUNTER 2021-05-23 13:54 | Inpatient (IN) | payer MEDICARE, OTHER ==
[~2021-05-23] VITALS: Ht 152.4 cm; Wt 52.9 kg
[~2021-05-23 13:54] MED LIST changes: +ENOXAPARIN40 MG/0.1 SUBQ; +NORCO5 PO; +OXYCODONE HCL5 M1 PO
[2021-05-23 16:15] VITALS: BP 114/64
--- NOTE | 2021-05-23 17:38 | NUR ---
PATIENT ADMITTED TO ROOM 325 FROM [facility]. REPORT RECEIVED FROM FER BRYANT. ALERT AND ORIENTED X 4. 3L NC IN PLACE, CPAP AT NOC. UP WITH ASSISTANCE, 50% WB TO RIGHT LEG. DRESSING TO RIGHT SANCHEZ AND RIGHT HIP, INTACT. ORIENTED TO CALL LIGHT AND UNIT.
[2021-05-23 19:00] VITALS: BP 124/60
--- NOTE | 2021-05-23 22:57 | NUR ---
ASSUMED CARE AT 1915. RESTING IN RECLINER, ASSISTED TO BED AT HS. UP WITH ONE, GAIT BELT, STAND PIVOT AND 50% WEIGHT BEARING ON RLE. TAKES PILLS WHOLE WITH WATER. DRESSINGS TO RT HIP AND SANCHEZ C/D/I. REQUESTED TRAZADONE AT 2300 OR LATER, AND CPAP AT THAT TIME. ON 02 3L/NC AND WILL HAVE O2 3L BLED INTO CPAP. NERI DRAINING TASH URINE. ASSISTED WITH POSITIONING. HOURLY ROUNDS CONTINUE. BED ALARM ON. CALL LITE IN REACH.
[2021-05-23 23:14] VITALS: BP 127/70
[2021-05-24 04:38] LABS: HEMATOCRIT 32.1 % (37.0-47.0); HEMOGLOBIN 10.8 gm/dL (12.0-15.0); MCH 29.7 pg (26.0-34.0); MCHC 33.6 g/dL (28.0-37.0); MCV 88.5 fL (80.0-100.0); MPV 8.7 fl. (7.2-11.1); RBC 3.62 mil/uL (4.20-5.00); WBC 7.7 thou/uL (4.0-11.0)
[2021-05-24 05:00] LABS: CALCIUM 8.3 mg/dL (8.5-10.1); CREATININE 0.7 mg/dL (0.6-1.3); POTASSIUM 4.6 mmol/L (3.5-5.1)
[2021-05-24 05:12] LABS: INR 1.2; PROTIME 12.7 Seconds (9.20-11.50)
--- NOTE | 2021-05-24 05:30 | NUR ---
SLEPT MOST OF THE NIGHT. ASSISTED WITH TURNS, PATIENT RELUCTANT TO TURN, BUT DID COOPERATE WITH TURNS. DRESSINGS C/D/I. NERI DRAINS TASH URINE. HOURLY ROUNDS CONTINUE. BED ALARM ON. CALL LITE IN REACH
[2021-05-24 07:40] VITALS: BP 133/79
--- NOTE | 2021-05-24 13:31 | NUR ---
Nutrition: Pt admitted to rehab with femoral FX. H/o CAD, HTN, afib, RA. Regular diet. Pt stated her appetite is fine, but she doesn't always like the hospital food. She eats well when her daughter brings food in for her. I gave her a menu and explained alternative ordering. Pt grateful. Wt: 112#. Alb 2.2, prealb 14.6. Low risk.
--- NOTE | 2021-05-24 16:59 | NUR ---
PATIENT COMPLETED THERAPIES THIS SHIFT ORDERED. UP WITH ASSISTANCE; GAIT BELT/WALKER/. PATIENT IS 50% WB TO RLE. 02 3L NC REMAINS IN PLACE. DARON ALVARADO'D THIS AFTERNOON PER ORDERS. PRN HYDROCODONE GIVEN X 2 FOR RIGHT LEG PAIN. DRESSING TO RIGHT SANCHEZ CHANGED AND PICTURE TAKEN PER PROTOCOL.
[2021-05-24 20:17] VITALS: BP 129/63
[2021-05-25 08:00] VITALS: BP 147/78
[2021-05-25 10:52] LABS: INR 1.5; PROTIME 15.6 Seconds (9.20-11.50)
--- NOTE | 2021-05-25 12:31 | NUR ---
REVIEWED CHARTING BY DETENTION SERGEANT AND I AGREE WITH THE CHARTING.
--- NOTE | 2021-05-25 16:11 | NUR ---
PLAN OF CARE: PATIENT ADMITTED TO THE [facility] ON 05/23/21 WITH A DIAGNOSIS OF RIGHT PROXIMAL FEMORAL FRACTURE. PRIOR TO ADMIT PT RESIDED AT HOME WITH SPOUSE AND DTR AND THEY ASSISTED THE PT WITH CARES. PT USED A ROLLATOR WALKER FOR MOBILITY. PT ALSO OWNS A TRANSPORT CHAIR AND USES IT IN THE COMMUNITY. PT HAS PAST HH HX WITH [facility]. PT HAS 0 SNF HX. PT HAS PAST HX WITH [facility]. CM ORIENTED THE PT, SPOUSE AND DTR TO THE [facility] AND PROCESSES, RESIDENTS RIGHTS INFO, TEAM CONFRENCE, AND TO THE ROLE OF CM. CM WILL REMAIN AVAILABLE TO ASSIST AND FOLLOW NEEDED.
--- NOTE | 2021-05-25 18:20 | NUR ---
PT IS SLOWLY PROGRESSING TOWARDS DC GOALS. PT COMPLAINS OF A LOT OF PAIN IN HER RIGHT HIP. PAIN PILLS GIVEN 3 TIMES TODAY TO HELP WITH PAIN CONTROL. VSS AFEBRILE. PT IS VERY [place]. WILL CONTINUE TO MONITOR PLAN OF CARE.
[2021-05-25 20:10] VITALS: BP 136/58
[2021-05-26 08:00] VITALS: BP 157/73
[2021-05-26 08:03] LABS: INR 1.6; PROTIME 16.9 Seconds (9.20-11.50)
--- NOTE | 2021-05-26 17:29 | NUR ---
ALERT AND ORIENTED X4. UP WITH 2 ASSIST, GAIT BELT AND WALKER. REMAINS 50% WEIGHT BEARING TO RIGHT LOWER LEG. DRESSINGS X3 DRY AND INTACT OVER RIGHT HIP AREA. USES PO PAIN MEDICATION TO HELP WITH RIGHT HIP PAIN. REMAINS ON O2 AT 3L/NC TO KEEP O2 SATS IN 90'S. USES CALL LIGHT FOR ASSIST. FALL PRECAUTIONS IN PLACE, BED ALARM AND CHAIR ALARM USED.
--- NOTE | 2021-05-27 04:58 | NUR ---
ASSUMED PT CARE AT 1930. PT ALERT AND ORIENTED X4, POLITE AND COOPERATIVE WITH CARES. UP WITH ASSIST OF TWO, GAIT BELT AND WALKER TO BSC TO VOID. 50% WEIGHT BEARING TO RLE. DRESSING TO RIGHT HIP C/D/I. ON 3.5L 02 BLED INTO CPAP. CALL LIGHT IN REACH, BED ALARM ON FOR SAFETY. HOURLY ROUNDING IN PROGRESS, WILL CONTINUE TO MONITOR.
[2021-05-27 07:52] LABS: INR 1.6; PROTIME 16.4 Seconds (9.20-11.50)
[2021-05-27 08:00] VITALS: BP 135/65
--- NOTE | 2021-05-27 18:50 | NUR ---
ALERT AND ORIENTED X4. UP WITH 1 ASSIST, GAIT BELT AND WALKER. USES PO PAIN MEDICATION TO HELP WITH RIGHT HIP PAIN. REMAINS 50% WEIGHT BEARING TO RIGHT LOWER LEG. TAKES PILLS WITHOUT DIFFICUTLY. USES CALL LIGHT WHEN NEEDING ASSIST. FALL PRECAUTIONS IN PLACE, BED ALARM AND CHAIR ALARM USED.
[2021-05-27 20:10] VITALS: BP 129/72
[2021-05-28 04:31] LABS: PROTIME 20.2 Seconds (9.20-11.50)
--- NOTE | 2021-05-28 04:37 | NUR ---
ASSUMED PT CARE AT 1930. PT ALERT AND ORIENTED X4, POLITE AND COOPERATIVE WITH CARES. UP WITH ASSIST OF 1-2, GAIT BELT AND WALKER TO BSC TO VOID. 50% WEIGHT BEARING TO RLE. DRESSING TO RIGHT HIP C/D/I. ON 3.5L 02 BLED INTO CPAP. PRN PAIN MEDICATION TWICE THIS SHIFT FOR RIGHT HIP PAIN. CALL LIGHT IN REACH, BED ALARM ON FOR SAFETY. HOURLY ROUNDING IN PROGRESS, WILL CONTINUE TO MONITOR.
[2021-05-28 08:15] VITALS: BP 157/76
--- NOTE | 2021-05-28 18:00 | NUR ---
ALERT AND ORIENTED X4. UP WITH 1 ASSIST, GAIT BELT AND WALKER. REMAINS 50% WEIGHTBEARING TO RIGHT LOWER EXTREMITY. DRESSING REMAINS INTACT OVER RIGHT HIP. REMAINS ON O2 AT 3L/NC. NEW DRESSINGS OVER SKIN TEARS RIGHT AND LEFT LOWER LEGS. USES CALL LIGHT FOR ASSIST. TAKES PILLS WITHOUT DIFFICULTY. FALL PRECAUTIONS IN PLACE. BED ALARM AND CHAIR ALARM USED.
[2021-05-28 19:00] VITALS: BP 128/56
[2021-05-29 05:12] LABS: INR 2.1; PROTIME 21.4 Seconds (9.20-11.50)
[2021-05-29 08:15] VITALS: BP 148/73
--- NOTE | 2021-05-29 16:26 | NUR ---
CM SPOKE TO THE PT AND HER DTR TO DISCUSS ANY QUESTIONS OR CONCERNS THAT THEY MAY HAVE. PT AND DTR HAVE NO QUESTIONS OR CONCERNS AT THIS TIME. CM WILL REMAIN AVAILABLE TO ASSIT AND FOLLOW NEEDED.
--- NOTE | 2021-05-29 17:19 | NUR ---
ALERT AND ORIENTED X4. UP WITH 1 ASSIST, GAIT BELT AND WALKER. USES PO PAIN MEDICATION TO HELP WITH RIGHT HIP PAIN. DRESSINGS REMAIN DRY AND INTACT OVER RIGHT HIP INCISION AND LOWER LEGS SKIN TEARS. TAKES PILLS WHOLE WITHOUT DIFFICULTY. USES CALL LIGHT FOR ASSIST. FALL PRECAUTIONS BED AND CHAIR ALARMS USED.
[2021-05-29 19:00] VITALS: BP 151/70
[2021-05-30 05:37] LABS: HEMATOCRIT 34.5 % (37.0-47.0); HEMOGLOBIN 11.5 gm/dL (12.0-15.0); MCH 29.5 pg (26.0-34.0); MCHC 33.4 g/dL (28.0-37.0); MCV 88.4 fL (80.0-100.0); MPV 7.9 fl. (7.2-11.1); RBC 3.9 mil/uL (4.20-5.00); RDW-CV 15.1 % (10.5-14.5); WBC 8.9 thou/uL (4.0-11.0)
--- NOTE | 2021-05-30 05:45 | NUR ---
ASSUMED CARES AT 1920. ALERT AND ORIENTED. PLEASANT. NORCO GIVEN FOR RIGHT HIP/LEG PAIN. O2 2L NC AND CPAP WITH 3L AT NIGHT. DRSG TO RIGHT HIP, RIGHT LOWER LEG AND LEFT LOWER LEG INTACT. MOD ASSIST WITH GAIT BELT AND WALKER. UP TO BSC. 50% WT BEARING TO RLE. SLEPT MOST OF THE NIGHT. CALL LIGHT IN REACH AND BED ALARM ON.
[2021-05-30 05:53] LABS: PROTIME 20.8 Seconds (9.20-11.50)
[2021-05-30 05:57] LABS: CALCIUM 8.9 mg/dL (8.5-10.1); CREATININE 0.8 mg/dL (0.6-1.3); POTASSIUM 4.2 mmol/L (3.5-5.1)
[2021-05-30 08:00] VITALS: BP 153/82
--- NOTE | 2021-05-30 16:21 | NUR ---
PT UP WITH GAIT BELT AND ASST X1 , PT DID COMPLETE ALL THERAPIES TODAY. PT IS ON 3 L OF 02 AND CPAP 3 L AT HS. PT HAS SKIN TEAR ON RT LEG AND SKIN TEAR ON LT LEG, DRESSINGS ARE DRY AND CLEAN. PT DID HAVE COMPLAINT OF PAIN @ 15:15 FROM HER RA AND RT HIP. PT IS RESTING WITH CALL LIGHT IN REACH AND FALL PRECAUTIONS IN PLACE.
[2021-05-30 20:29] VITALS: BP 145/66
[2021-05-31 04:54] LABS: INR 2.2; PROTIME 22.4 Seconds (9.20-11.50)
--- NOTE | 2021-05-31 05:35 | NUR ---
ASSUMED CARE AT 1920. ALERT AND ORIENTED. PLEASANT. NORCO GIVEN FOR RIGHT LEG PAIN. DRSG TO BILATERAL LEGS INTACT. MOD ASSIST WITH GAIT BELT AND WALKER. UP TO BSC. NEEDS ASSIST WITH LEGS INTO BED. O2 3L NC. CPAP AT NIGHT. PT STAYED UP IN RECLINER UNTIL 0100 BEFORE GOING TO BED AND REFUSED TO TAKE TEMAZEPAM UNTIL THEN. SLEPT OTHERWISE. CALL LIGHT IN REACH AND BED ALARM ON.
[2021-05-31 08:03] VITALS: BP 169/64
--- NOTE | 2021-05-31 16:59 | NUR ---
PT UP WITH GAIT BELT AND WALKER. PT COMPLETED ALL THERAPY . DID HAVE COMPLAINTS OF PAIN AT 9:45 AND 1430 BOTH RESOLVED WITH MEDS. AT BED SIDE. PT RESTING AND HAS CALL LIGHT IN REACH AND FALL PRECAUTIONS IN PLACE.
[2021-05-31 20:21] VITALS: BP 136/55
[2021-06-01 04:30] LABS: INR 2.3
[2021-06-01 08:04] VITALS: BP 155/78
[2021-06-01 20:24] VITALS: BP 159/59
[2021-06-02 05:26] LABS: INR 2.6; PROTIME 26.4 Seconds (9.20-11.50)
[2021-06-02 08:00] VITALS: BP 160/91
[2021-06-02 19:00] VITALS: BP 140/69
[2021-06-03 07:50] VITALS: BP 154/67
--- NOTE | 2021-06-03 17:17 | NUR ---
PATIENT UP TO WHEELCHAIR THIS SHIFT. UP WITH ASSISTANCE; GAIT BELT, WALKER AND 02. PATIENT REMAINS 50% WB TO RIGHT LEG. TRANSPARENT DRESSINGS REMOVED FROM RIGHT AND LEFT CALF, WOUNDS HEALING. MEPILEX PLACED ON LEFT CALF. SPOKE WITH DR. GEORGE THIS AM PATIENT 10 DAY FOLLOW UP APPROACHED. ORDER FOR RIGHT HIP XRAY PLACED AND COMPLETED. DR. GEORGE HERE THIS EVENING AND ORDERS TO REMOVE RIGHT HIP SUTURES. PATIENT VOIDING PER TOILET/BSC AND BM NOTED TODAY. PRN VICODIN GIVEN X 2 THIS SHIFT. PER GUM PULLER PATIENT TEARY BEFORE BED MOST NIGHTS. DR. KIRAN NOTIFIED AND ORDERS FOR KLONOPIN HS. PATIENT AND DAUGHTER NOTIFIED AND INFORMATION GIVEN ON NEW MED, PATIENT REFUSING AT THIS TIME TO TRY NEW MEDICATION. REMAINS ON 3L NC WITH CPAP AT HS.
[2021-06-03 20:00] VITALS: BP 137/65
--- NOTE | 2021-06-04 05:30 | NUR ---
ASSUMED CARE AT 1915. PATIENT RESTED IN CHAIR UNTIL HS. UP WITH ONE, GAIT BELT, WALKER. 50% WEIGHT BEARING TO RLE. VOIDS PER TOILET OR BSC. HAD ONE BM THIS SHIFT PER TOILET. TURNS SELF. O2 3L/NC WHILE AWAKE, CPAP WITH 3L/O2 BLED IN AT HS. REFUSED HS CLONAZEPAM DESPITE EDUCATION. NO CRYING NOTED TONIGHT. RT HIP MACHINE PACKAGING TECHNICIAN, LT SANCHEZ MIPILEX INTACT. MEDICATED FOR PAIN. SEE DEC. SLEPT AFTER TAKING SLEEPING PILLS. HOURLY ROUNDS CONTINUE. BED ALARM ON. CALL LITE IN REACH.
[2021-06-04 07:40] VITALS: BP 166/79
--- NOTE | 2021-06-04 17:19 | NUR ---
PATIENT COMPLETED THERAPIES THIS SHIFT ORDERED. UP WITH ASSISTANCE; GAIT BELT AND WALKER. REMAINS 50% WB TO RIGHT LEG. [address] PRN HYDROCODONE GIVEN X 2 FOR RIGHT LEG PAIN. AT BEDSIDE THIS SHIFT. UP TO WHEELCHAIR.
[2021-06-04 20:00] VITALS: BP 137/57
--- NOTE | 2021-06-05 04:51 | NUR ---
ASSUMED CARE AT 191. PATIENT WAS IN CHAIR, UP WITH SBA RISING FROM CHAIR, AMB TO BR WITH 50% WB TO RLE. VOIDED PER TOILET AT BEGINNING OF SHIFT, DID OWN FORM OF DIG STIM TO ASSIST WITH BM. DOES OWN HYGIENE. WEARS PAD IN PANTIES. VODED LATER PER BSC. WEARS 02 3L/NC W.A., CHANGED TO CPAP WITH 3L/NC BLED IN. MEDICATED FOR PAIN. SEE DEC. BED ALARM ON. CALL LITE IN REACH. HOURLY ROUNDS CONTINUE.
[2021-06-05 07:51] VITALS: BP 149/67
[2021-06-05 19:00] VITALS: BP 153/69
[2021-06-06 04:53] LABS: HEMATOCRIT 31.4 % (37.0-47.0); HEMOGLOBIN 10.4 gm/dL (12.0-15.0); MCH 29.1 pg (26.0-34.0); MPV 8.2 fl. (7.2-11.1); RBC 3.57 mil/uL (4.20-5.00); RDW-CV 15.4 % (10.5-14.5); WBC 8.8 thou/uL (4.0-11.0)
[2021-06-06 05:15] LABS: CREATININE 0.8 mg/dL (0.6-1.3); POTASSIUM 4.8 mmol/L (3.5-5.1)
[2021-06-06 07:50] VITALS: BP 140/65
--- NOTE | 2021-06-06 17:13 | NUR ---
AM ASSESSMENT AND VITAL SIGNS COMPLETED DOCUMENTED. PT CONTINUES TO WORK WITH THERAPIES AND IS CLOSE TO DISCHARGE GOALS. FAMILY TRAINING PLANNED FOR FRIDAY WITH DISCHARGE ON FRIDAY. PT IS AMBULATORY WITH A WALKER AND SUPERVISION. PAIN WELL CONTROLLED WITH PRN PAIN MEDICATION. FALL PRECAUTIONS AND HOURLY ROUNDING CONTINUE.
--- NOTE | 2021-06-06 17:30 | NUR ---
TEAM CONFRENCE MEETING HELD TODAY. CM AND PHYSICIAN SPOKE TO PT AND DTR TO INFORM OF THE MEETING AND PLAN TO D/C THE PT HOME FRIDAY PENDING FAMILY TRAINING. PT'S DTR REQUEST FAMILY TRAINING FOR PT'S SPOUSE FRIDAY (06/07/21 @ 0900) AND FRIDAY (06/08/21 @1300) WITH PT'S DTR AND SPOUSE. PT'S DTR REQUEST HH LIST SHE WOULD LIKE TO CHOOSE NEW HH FOR THE PT PRIOR TO D/C. CM WILL REMAIN AVAILABLE TO ASSIST AND FOLLOW NEEDED.
[2021-06-06 19:00] VITALS: BP 163/61
--- NOTE | 2021-06-07 05:22 | NUR ---
PATIENT SLEPT WELL DURING THIS SHIFT. PT USES CALL LIGHT APPROPRIATELY TO MAKE NEEDS KNOWN. PT ON O2 @ 3 LITERS PER NASAL CANNULA. PT UP TO BSC WITH ASSIST OF ONE PLUS G.BELT AND WALKER. PT GIVEN PAIN PILL AT HS. FREQUENTLY USED ITEMS AND CALL LIGHT WITHIN REACH. SIDERAILS UP X3 AND BED ALARM ON. WILL CONTINUE TO MONITOR.
[2021-06-07 08:00] VITALS: BP 113/68
--- NOTE | 2021-06-07 19:40 | NUR ---
SITTING UP IN CHAIR WITH 02 NASAL CANNULA AT 3 LITERS. PAIN MEDICINE GIVEN FOR COMPLAINT OF GENERALIZED PAIN. CALL LIGHT WITHIN REACH.
[2021-06-07 20:40] VITALS: BP 134/70
--- NOTE | 2021-06-08 05:36 | NUR ---
UP X 3 DURING THE NIGHT TO THE BATHROOM TO VOID. RESTED QUIETLY IN BETWEEN VOIDS WITH CPAP AND 02 AT 3 LITERS. PAIN MEDICINE GIVEN AGAIN AT 0507 FOR COMPLAINT OF GENERALIZED PAIN. HOURLY ROUNDING IN PROGRESS. PLAN IS FOR PATIENT TO BE DISCHARGED TO HOME TODAY.
[2021-06-08 08:30] VITALS: BP 158/74
[2021-06-08] MEDS ORDERED: JANTOVEN4 MG PO (08:57)
[2021-06-08] MEDS ORDERED: CLONAZEPAM 0.50.5 M1 PO (08:57)
[2021-06-08] MEDS ORDERED: NORCO5 PO (08:57)
[2021-06-08 12:26] VITALS: BP 158/74
--- NOTE | 2021-06-08 13:16 | NUR ---
PT'S DTR LUIS BLANK CM THEY ARE CHOSING [facility]. CM FAXED REFERRAL TO [phone].
[2021-06-08 14:19] VITALS: BP 158/74
[2021-06-08 14:38] VITALS: BP 158/74
[2021-06-08 15:18] VITALS: BP 158/74
--- NOTE | 2021-06-08 16:25 | NUR ---
PATIENT AND DAUGHTER VERBALIZED UNDERSTANDING OF DISCHARGE INSTRUCTIONS. THEY WERE NOTIFIED TO REPEAT PT/INR ON FRIDAY PER DR SAENZ INSTRUCTIONS. RIGHT HIP INCISION HEALED. THEY WERE NOTIFIED TO LET DR KNOW ABOUT STUB OF CLEAR STITCH IN INCISION. NO REDNESS OR DRAINAGE AT SITE. PATIENT INSTRUCTED TO REMAIN 50% WEIGHTBEARING UNTIL CHANGED BY . DISCHARGED VIA W/C TO FAMILY CAR.
== END 2021-06-08 16:15 | disposition home health service (06) | DRG 536 ==
LOC: M.REH 13:54
PROVIDERS: Internal Medicine; ADMIT Physical Medicine & Rehabilitation; ATTEND Physical Medicine & Rehabilitation
PROC: 5A09357 Assistance with Respiratory Ventilation, Less than 24 Consecutive Hours, Continuous Positive Airway Pressure (ICD-10-PCS; principal; 2021-05-23)
PROC: 5A09357 Assistance with Respiratory Ventilation, Less than 24 Consecutive Hours, Continuous Positive Airway Pressure (ICD-10-PCS; 2021-05-25)
PROC: 5A09357 Assistance with Respiratory Ventilation, Less than 24 Consecutive Hours, Continuous Positive Airway Pressure (ICD-10-PCS; 2021-05-28)
PROC: 5A09357 Assistance with Respiratory Ventilation, Less than 24 Consecutive Hours, Continuous Positive Airway Pressure (ICD-10-PCS; 2021-05-30)
PROC: 5A09357 Assistance with Respiratory Ventilation, Less than 24 Consecutive Hours, Continuous Positive Airway Pressure (ICD-10-PCS; 2021-05-31)
PROC: 5A09357 Assistance with Respiratory Ventilation, Less than 24 Consecutive Hours, Continuous Positive Airway Pressure (ICD-10-PCS; 2021-06-01)
PROC: 5A09357 Assistance with Respiratory Ventilation, Less than 24 Consecutive Hours, Continuous Positive Airway Pressure (ICD-10-PCS; 2021-06-03)
PROC: 5A09357 Assistance with Respiratory Ventilation, Less than 24 Consecutive Hours, Continuous Positive Airway Pressure (ICD-10-PCS; 2021-06-04)
PROC: 5A09357 Assistance with Respiratory Ventilation, Less than 24 Consecutive Hours, Continuous Positive Airway Pressure (ICD-10-PCS; 2021-06-05)
PROC: 5A09357 Assistance with Respiratory Ventilation, Less than 24 Consecutive Hours, Continuous Positive Airway Pressure (ICD-10-PCS; 2021-06-07)
PROC: 5A09357 Assistance with Respiratory Ventilation, Less than 24 Consecutive Hours, Continuous Positive Airway Pressure (ICD-10-PCS; 2021-06-08)
DX: S72.144A Nondisplaced intertrochanteric fracture of right femur, initial encounter for closed fracture (principal); E87.1 Hypo-osmolality and hyponatremia; I50.22 Chronic systolic (congestive) heart failure; J96.10 Chronic respiratory failure, unspecified whether with hypoxia or hypercapnia; I48.20 Chronic atrial fibrillation, unspecified; I11.0 Hypertensive heart disease with heart failure; J44.9 Chronic obstructive pulmonary disease, unspecified; K21.9 Gastro-esophageal reflux disease without esophagitis; F32.9 Major depressive disorder, single episode, unspecified; F17.210 Nicotine dependence, cigarettes, uncomplicated; K74.60 Unspecified cirrhosis of liver; W18.39XA Other fall on same level, initial encounter; I25.10 Atherosclerotic heart disease of native coronary artery without angina pectoris; Z79.01 Long term (current) use of anticoagulants; Y93.89 Activity, other specified; Y92.89 Other specified places as the place of occurrence of the external cause; Y99.8 Other external cause status; Z86.718 Personal history of other venous thrombosis and embolism; Z86.711 Personal history of pulmonary embolism